=== PATIENT | male | born 1950 | race Caucasian/White ===

== ENCOUNTER → 2018-08-23 08:23 | Outpatient (CLI) | payer MEDICARE, MEDICAID, SELFPAY ==
--- NOTE | 2018-08-23 08:35 | XR_ITS ---
XR chest 2V HISTORY: ITS.REASON: smoker, encouter for long-term (Current) us of Medication ORDERING PHYSICIAN: Ellie Velasco PATIENT AGE: 67 years Technique: PA and lateral chest COMPARISON: 03/02/2016. & 08/20/2014 FINDINGS: No acute or new findings. The lungs appear hyperexpanded bilaterally with flattened hemidiaphragm the on lateral view. 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 Minimal linear scarring towards the left base is actually less evident on today's study again noted. The poppy and mediastinal structures appear stable. Unchanged. The heart is normal in size. There is been there is a fracture the distal right clavicle since prior studies. Inferior displacement of the distal right clavicular fragment with prominentll 2.5-3 cm bayonet override. Limited osseous bridging between the fragments distal clavicle with with Incomplete osseous union Otherwise the T-spine and ribs and chest wall unremarkable. IMPRESSION Nothing definitely acute Hyperexpansion.. COPD chronic lung changes . Right clavicular fracture, with prominent overriding of fragments. & Incomplete osseous union
== END ==
PROVIDERS: PCP Nurse Practitioner; Visit Provider Nurse Practitioner
DX: Z79.899 Other long term (current) drug therapy (principal)
CPT/HCPCS: 71046

== ENCOUNTER 2019-10-19 19:37 | Observation (INO) | payer MEDICARE, MEDICAID, SELFPAY ==
--- NOTE | 2019-10-19 19:35 | ECG_ITS ---
APPROVED REPORT Exam: Resting ECG HR:69 bpm ECG Measurements Heart Rate 69 AXES AL 208 P 63 QRSd 96 QRS 121 QT 406 T 82 QTc 435 <Conclusion> Normal sinus rhythm Right axis deviation Abnormal ECG Electronically signed by : Akil Barcenas, 10/20/2019 08:55:32
[2019-10-19 19:43] VITALS: BP 144/72; PULSE 73; RESP 20; TEMP 36.7; O2SAT 97; BMI 37.2
--- NOTE | 2019-10-19 19:48 | XR_ITS ---
PROCEDURE: XR CHEST PORTABLE CLINICAL HISTORY: cp Chest pain COMPARISON: CXR CHEST(2 VIEWS-NOT PORTABLE) from 03/02/2016 CXR2V XR chest 2V from 08/23/2018 XR CHEST 2V from 01/31/2019 FINDINGS: Borderline cardiomegaly without failure. Small hiatal hernia. The lungs are clear without infiltrates, suspicious nodules, or pleural effusions. There is an old right distal clavicle fracture IMPRESSION: No acute findings. Dictated by: David Weiss MD 10/19/2019 21:15 Electronically signed by Dvaid Weiss MD in [place] 10/19/2019 21:15
--- NOTE | 2019-10-19 19:51 | HMH.EDCP ---
ED Disposition Condition on Discharge: Good - Critical Care Critical Care Time: No <Kj Gee - Last Filed: 10/19/19 19:51> <Toño Camara - Last Filed: 10/19/19 20:40> Clinical Impression: Hyponatremia, Tobacco use, Diabetes 1.5, managed as type 2 Chest pain Qualifiers: Chest pain type: precordial pain Qualified Code(s): R07.2 - Precordial pain Disposition: Admitted as Observation Instructions: DI for Atypical Chest Pain Referrals: Provider,Referral, MD [Primary Care Provider] - Attestation: On 10/19/19, the high probability of a clinically significant, sudden or life threatening deterioration of the following system(s) required my full and direct attention, intervention and personal management. The time I documented below is in addition to time spent performing reported procedures but includes the following listed in this critical care notation. Medical Decision Making - Medical Records Medical records reviewed: Yes: I reviewed the patient's medical records. - Sergio Inquiry Pt receiving controlled substance: No - Lab Data Lab results reviewed: Yes: I reviewed the patient's lab results. - ECG Data Tracing #1 I reviewed this ECG and interpreted as documented below: Normal Sinus Rhythm: Yes <Kj Gee - Last Filed: 10/19/19 19:51> - Lab Data Result diagrams: 10/19/19 19:47 10/19/19 19:40 - Radiology Data #1 Image(s): Chest Image Reviewed: Yes I reviewed the patient's radiology image Preliminary Findings: Normal/NAD - ECG Data Tracing #1 Ischemic changes: non-specific ST-T wave changes - Physician Consults Physician Consulted: liz Reason -: Admission - Reevaluation(s) Time: 20:39 <Toño Camara - Last Filed: 10/19/19 20:40> Vital Signs: 10/19/19 19:43 10/19/19 20:14 Temperature 98.1 F Temperature Source Oral Pulse Rate [Right Brachial] 73 71 Respiratory Rate 20 18 Blood Pressure [Right Arm] 144/72 H 132/78 Blood Pressure Mean [Right Arm] 96 96 Blood Pressure Source [Right Arm] Automatic Cuff Automatic Cuff Blood Pressure Position [Right Arm] Sitting Sitting 02 Sat by Pulse Oximetry 97 98 Oxygen Delivery Method Room Air Room Air - Lab Data Lab Results 10/19/19 19:40: Sodium 120 L, Potassium 4.0, Chloride 83 L, Carbon Dioxide 26, Anion Gap 15.0, BUN 12, Creatinine 0.70, Estimated Creat Clear 114, Estimated GFR 113, Est GFR ( Amer) 137, Glucose 64 L, Calcium 9.2, Troponin I < 0.01 10/19/19 19:47: WBC 8.5, RBC 3.75 L, Hgb 12.0 L, Hct 36.2 L, MCV 96.5 H, MCH 32.0 H, MCHC 33.1, RDW 12.5, Plt Count 337, MPV 7.0 L, Neut % (Auto) 60.1, Lymph % (Auto) 32.3, [place] % (Auto) 6.2, Eos % (Auto) 1.1, Baso % (Auto) 0.4, Neut # (Auto) 5.1, Lymph # (Auto) 2.8, [place] # (Auto) 0.5, Eos # (Auto) 0.1, Baso # (Auto) 0.0 Orders (Tests/Meds): ED MEDICATIONS Discontinued Medications Generic Name Dose Route Start Last Admin Trade Name Freq PRN Reason Stop Dose Admin Aspirin 324 mg 10/19/19 19:52 10/19/19 19:57 Aspirin 81mg Chewable Tablet PO 10/19/19 19:53 Not Given ONCE ONE Nitroglycerin 1 gm 10/19/19 19:52 10/19/19 19:59 Nitroglycerin 1 Inch Oint Udp TD 10/19/19 19:53 1 gm ONCE ONE Administration ORDERS Category Date Time Status Chest XR -- portable [XR chest portable] Stat Exams 10/19/19 19:48 Taken Troponin I Q3H Lab 10/19/19 23:00 Ordered Troponin I Q3H Lab 10/20/19 02:00 Ordered - Reevaluation(s) Reevaluation #1: doing better (Toño Camara) Chest Pain HPI - General Mode of Arrival: EMS Source of Information: Patient, EMS Limitations: No Limitations Description of Symptoms (Recalled from ER Triage Doc. by RN): pt began experiencing severe chest pain approx 1.5 hours ago after having a conversation with his daughter that he says upset him. pt denies dyspnea, denies nausea. history of htn, cholesterol and diabetes issues. 1+ppd smoker. no pain radiation. no other issues. <GerardJ
[2019-10-19 20:01] LABS: Chloride 83 mmol/L (98-107); Sodium 120 mmol/L (136-145)
[2019-10-19 20:04] LABS: Blood Urea Nitrogen 12 mg/dl (9-20); Calcium 9.2 mg/dl (8.4-10.2); Carbon Dioxide 26 mmol/L (22.0-30.0); Creatinine Clearance Estimated 114 mL/min (50-200); Estimated Glomerular Filt Rate 113 ml/min (>60); GFR (African American) 137 ML/MIN (>60); Glucose 64 mg/dl (74-100)
[2019-10-19 20:10] LABS: Basophils % 0.4 % (0.1-2.0); Eosinophils # 0.1 K/mm3 (0.0-0.4); Eosinophils % 1.1 % (0.1-12.0); Hematocrit 36.2 % (42.0-52.0); Lymphocytes # 2.8 K/mm3 (0.7-4.5); Lymphocytes % 32.3 % (10-50); Mean Corpuscular HGB Conc 33.1 g/dL (31.8-35.4); Mean Corpuscular Volume 96.5 fl (80-94); Monocytes # 0.5 K/mm3 (0.1-1.0); Monocytes % 6.2 % (1.7-9.3); Neutrophils # 5.1 K/mm3 (1.8-7.8); Neutrophils % 60.1 % (37.0-80.0); Platelet Count 337 K/mm3 (142-424); Red Blood Count 3.75 M/mm3 (4.60-6.20); Red Cell Distribution Width 12.5 % (11.5-17.5); White Blood Count 8.5 K/mm3 (4.8-10.8)
[2019-10-19 20:14] VITALS: BP 132/78; PULSE 71; RESP 18; O2SAT 98
[2019-10-19 20:19] LABS: Troponin I < 0.01 ng/ml (0.00-0.034)
--- NOTE | 2019-10-19 20:43 | PC.NURSE ---
called information to registration: room 210,chest pain.obs, and carlos. spoke with benedicto.
--- NOTE | 2019-10-19 20:47 | PC.NURSE ---
attempted to call report on patient. advised by receiving nurse, prisca that she will call back when she is out of her current patient's room.
[2019-10-19 20:58] VITALS: BP 131/65; PULSE 73; RESP 18; TEMP 36.7; O2SAT 98
[2019-10-19 21:11] LABS: Microscopic, Urine URINE MICROSCOPIC (MICROSCOPIC)
[2019-10-19 21:15] LABS: Appearance,Urine CLEAR (Clear); Bilirubin,Urine Negative (Negative); Blood, Urine TRACE-L (Negative); Color,Urine YELLOW (Yellow); Glucose,Urine (UA) Negative (Negative); Ketones,Urine Negative (Negative); Leukocyte Esterase,Urine Negative (Negative); Nitrate,Urine Negative (Negative); Protein,Urine Negative (Negative); Specific Gravity, Urine <= 1.005 (1.005-1.030); Urobilinogen,Urine 0.2 EU/dl (0.2)
[2019-10-19 21:33] VITALS: BP 117/64; PULSE 64; RESP 20; TEMP 36.5; O2SAT 99; BMI 30.3
--- NOTE | 2019-10-19 21:33 | PC.NURSE ---
T ARRIVED TO THE FLOOR VIA W/C FROM ED @ [id number]
[2019-10-19 21:35] LABS: Bacteria,Urine Trace /lpf; Squamous Epithelial Cell,Urine Occasional #/hpf (0-5); WBC,Urine Occasional #/hpf (0-3)
[2019-10-19 21:45] VITALS: PULSE 60
[2019-10-19 23:14] LABS: Troponin I < 0.01 ng/ml (0.00-0.034)
--- NOTE | 2019-10-19 23:27 | PC.NURSE ---
med rec unable to be completed at this time. pt states he does not know the medications he currently takes. his meds come prepacked from his pharmacy and he states he just takes whatever is in the package. pt also states he does not know his current health hx, poor historian.
[2019-10-19 23:58] LABS: POC Glucose,Bedside 167 (70-110)
[2019-10-20] VITALS (7 sets, daily range): BP systolic 108–122; BP diastolic 53–66; PULSE 60–91; RESP 18–20; TEMP 36.4–36.8; O2SAT 96–98; BMI 29.5
--- NOTE | 2019-10-20 | CA_ITS ---
APPROVED REPORT Exam: Exercise Treadmill Technologist: Gisell Hughes, Ht: 6 ft 0 in Wt: 225 lbs BSA: 2.24 m2 HR: 80 bpm BP: 144/66 mmHg Rhythm: SINUS RHYTHM Medical History Medical History: HTN, Hyperlipidemia, Diabetic ??? Noninsulin Medications: Lisinopril,,,,, Propranolol,,,,, Asa,,,,, Metformin,,,,, Tylenol,,,,, Tramadol,,,,, PaROXETINE,,,,, PriMIDONE,,,,, Pregabalin,,,,, Tolterodine,,,,, TeraAZOSIN,,,,, LorEAZEPAM,,,,, Allergies: PCN Cardiac Risk Factors: HTN, Hyperlipidemia, Diabetes (non-insulin) Stress Test Details Test: LEXISCAN HR Resting HR: 75 bpm Max Heart Rate (APMHR): 154 bpm Max HR Achieved: 103 bpm Target HR (85% APMHR): 130 bpm % of APMHR: 66 Recovery HR: 93 bpm BP Resting BP: 144.0/66.0 mmHg Max BP: 152.0/63.0 mmHg Recovery BP: 120.0/72.0 mmHg ECG Resting ECG: SINUS RHYTHM Clinical Exercise duration: 04:00 min Highest Stage Achieved: Exercise capacity: 1.0 METs Stress ECG Conclusion LEXISCAN PORTION COMPLETED. PATIENT C/O SHORTNESS OF BREATH DURING PEAK INFUSION. NO CHEST PAIN. POSITIVE FOR SOA DURING PEAK INFUSION. NO ECTOPY. LESS THAN 1.[address] DEPRESSION. IMAGES TO FOLLOW Test Summary REST . . . . . . . Sitting REST . . . . . . . Sitting REST 02:06 . . 75 . 144/ 66 . . Stage 1 01:00 . . 89 . . . . Stage 2 01:00 . . 101 . 152/ 63 . . Stage 3 01:00 . . 98 . 116/ 71 . . Stage 4 01:00 . . 90 . . . Stop exercise at 04:00 RECOVERY 01:00 . . 91 . 128/ 71 . . RECOVERY 02:00 . . 91 . 128/ 71 . . RECOVERY 03:00 . . 90 . 127/ 71 . . RECOVERY 04:00 . . 90 . 127/ 71 . . RECOVERY 04:18 . . 90 . 139/ 73 . . Electronically signed by : Zhang Noyola, 10/20/2019 16:51:15
[2019-10-20 02:36] LABS: Troponin I < 0.01 ng/ml (0.00-0.034)
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
--- NOTE | 2019-10-20 06:08 | PC.NURSE ---
KAE HARRIS NOTIFIED OF CONSULT.
[2019-10-20 06:22] LABS: POC Glucose,Bedside 101 (70-110)
[2019-10-20 06:54] LABS: Basophils % 0.3 % (0.1-2.0); Eosinophils # 0.1 K/mm3 (0.0-0.4); Eosinophils % 1.9 % (0.1-12.0); Hematocrit 36.9 % (42.0-52.0); Lymphocytes # 1.4 K/mm3 (0.7-4.5); Lymphocytes % 23.2 % (10-50); Mean Corpuscular HGB Conc 32.4 g/dL (31.8-35.4); Mean Corpuscular Hemoglobin 32.1 pg (27.0-31.2); Mean Platelet Volume 7.5 fl (7.4-10.4); Monocytes # 0.5 K/mm3 (0.1-1.0); Neutrophils # 4.1 K/mm3 (1.8-7.8); Neutrophils % 66.6 % (37.0-80.0); Platelet Count 359 K/mm3 (142-424); Red Blood Count 3.73 M/mm3 (4.60-6.20); Red Cell Distribution Width 12.5 % (11.5-17.5); White Blood Count 6.1 K/mm3 (4.8-10.8)
[2019-10-20 07:16] LABS: Chloride 96 mmol/L (98-107); Potassium 4.2 mmoL/L (3.5-5.1); Sodium 130 mmol/L (136-145)
[2019-10-20 07:19] LABS: Anion Gap 12.2 mEq/L (5-15); Blood Urea Nitrogen 12 mg/dl (9-20); Calcium 9.2 mg/dl (8.4-10.2); Carbon Dioxide 26 mmol/L (22.0-30.0); Cholesterol 92 mg/dl (140-200); Creatinine Clearance Estimated 91 mL/min (50-200); Estimated Glomerular Filt Rate 113 ml/min (>60); GFR (African American) 137 ML/MIN (>60); Glucose 117 mg/dl (74-100); Magnesium 1.8 mg/dl (1.6-2.3); Triglycerides 79 mg/dl (30-150); VLDL Cholesterol 16 mg/dL (0-40)
[2019-10-20 07:20] LABS: Chol/HDL Ratio 2.1 (1-3.5); HDL Cholesterol 43 mg/dl (40-60)
--- NOTE | 2019-10-20 07:24 | NM_ITS ---
APPROVED REPORT Exam: Nuclear Stress Test Indication: HTN, D.M., HYPERLIPIDEMIA, TOB USE, FM HX, C.P., SOB, PALPITATIONS, FATIGUE Patient Location: Inpatient Stress Tech: Althea Backnkson OR Tech:Debi Clement, DENIT RT (R)(N)(M) Ht: 60 ft 0 in Wt: 225 lbs HR: 80 bpm BP: 144/66 mmHg BSA: 11.89 m2 History: HTN, D.M., HYPERLIPIDEMIA, TOB USE, FM HX, C.P., SOB, PALPITATIONS, FATIGUE Procedure: Patient received a 0.4 mg of intravenous Lexiscan, resting heart rate 80 bpm, resting blood pressure 144/66 mmHg, with Lexiscan maximum heart rate achived was 100 bpm which is Less than 85 % of the maximum predicted heart rate and blood pressure was 120/69 mmHg. With Lexiscan, patient denied any complaint of chest pain. Electrocardiogram Resting electrocardiogram showed sinus rhythm, with Lexiscan there is less than 1.[address] segment depression noted from the baseline EKG. The EKG portion of the Lexiscan Myoview is nondiagnostic. Cardiac Stress and Resting SPECT Images: Cardiac Stress and Resting SPECT images were obtained using technetium 99m Myoview 31.8 mCi stress and 10.14 mCi at rest. Gated SPECT for the analysis of segmental wall motion and calculation of the ejection fraction also done. Cardiac stress and resting SPECT images show uniform myocardial activity without segmental perfusion abnormality, computer derived ejection fraction is over 65% with no regional wall motion abnormality, right ventricle is normal size and contractility. Conclusion: 1. The EKG portion of the Lexiscan Myoview is nondiagnostic. 2. No scintigraphic evidence of reversible ischemia seen, computer derived ejection fraction is over 65% with no regional wall motion abnormality, right ventricle is normal size and contractility. 3. Normal Lexiscan Myoview study. Electronically signed by : Zhang Noyola, 10/20/2019 16:53:23
--- NOTE | 2019-10-20 07:25 | HMH.HP ---
*Admission Date: 10/19/19 *Chief complaint: Chest pain *History of present illness: 68-year-old male with diabetes, hypertension and significant cigarette use presented to the emergency department after an argument with a family member led to development of retrosternal chest pain with associated mild diaphoresis and shortness of breath. Patient reports chest discomfort was nonradiating. He has not had this chest discomfort before. He came to the emergency department for evaluation. Patient had unremarkable EKG and normal troponin in the emergency department. He was admitted for rule out of [place]. This morning he reports no chest pain at the time of interview. Nursing notes would indicate patient's chest pain gradually decreased throughout the night. Patient has diabetes that is controlled, hypertension and is a longtime smoker. He reports more recently during the coronavirus pandemic while he has been at home he is sometimes smoking 2 packs of cigarettes per day. [facility] History I have reviewed the patient's past medical history: Yes Medical History: Reports:: Diabetes Mellitus Type 2, Hyperlipidemia, Hypertension Denies:: Cancer, Diabetes Mellitus Type 1 *Have you ever received a pneumonia vaccine?: Yes *Have you received a flu vaccine this season?: Yes Other Medical History: Reports: Arthritis Other Surgeries: Yes: No Previous Surgery Amputation: No Fractures: No - *Social History Educational Level: Attended Grade School Smoking Status: Current every day smoker Tobacco Type: cigarettes # Packs/Day (cigarettes): 2 Alcohol Intake: never *Occupational Status:: retired Housing: apartment *Travel in the last 8 weeks: None Family Hx:: Diabetes Review of Systems - Constitutional Denies anorexia, Denies body ache(s), Denies chills - *Cardiovascular Reports chest pain - *Respiratory Reports shortness of breath, Denies change in phlegm color, Denies chest congestion, Denies cough, Denies shortness of breath with activity - *Gastrointestinal Denies abdominal pain - *Musculoskeletal Reports abnormal walking - *Neurologic Reports abnormal walking, Reports confusion, Reports unsteadiness, Denies frequent falls Meds Home Medications Medication Instructions Recorded Confirmed Type Aspirin [Aspir-Low] 81 mg PO DAILY 01/31/19 10/20/19 History Docusate Sodium [Docusate Sodium 100 mg PO DAILY 01/31/19 10/20/19 History 100mg Cap] Dutasteride 0.5 mg PO DAILY 01/31/19 10/20/19 History Etanercept [Enbrel Sureclick] 50 mg IM . 01/31/19 10/20/19 History Fenofibrate Nanocrystallized 145 mg PO DAILY 01/31/19 10/20/19 History [Fenofibrate] LORazepam [Ativan 1mg tablet] 0.5 mg PO NEEDED PRN 01/31/19 10/20/19 History Memantine HCl [Memantine HCl ER] 28 mg PO DAILY 01/31/19 10/20/19 History Metformin HCl [Metformin 1000mg 1,000 mg PO DAILY 01/31/19 10/20/19 History Tablets] Multivit-Min/FA/Lycopen/Lutein 1 tab PO DAILY 01/31/19 10/20/19 History [Abc Plus Tablet] PARoxetine HCL [Paroxetine HCl] 40 mg PO DAILY 01/31/19 10/20/19 History Pravastatin Sodium [Pravachol 20mg 20 mg PO DAILY 01/31/19 10/20/19 History Tablet] Pregabalin [Pregabalin 50mg 50 mg PO TID 01/31/19 10/20/19 History Capsule] Primidone 50 mg PO TID 01/31/19 10/20/19 History Propranolol HCl 10 mg PO TID 01/31/19 10/20/19 History Terazosin HCl 2 mg PO DAILY 01/31/19 10/20/19 History Tolterodine Tartrate [Tolterodine 4 mg PO DAILY 01/31/19 10/20/19 History Tartrate ER] Tramadol HCl [Tramadol 50mg 50 mg PO BID 01/31/19 10/20/19 History Tab] lisinopriL [Lisinopril 10mg Tab] 10 mg PO DAILY 01/31/19 10/20/19 History polyethylene glycoL 3350 [Miralax See Rx Instructions .ROUTE .COMPLEX 10/19/19 10/20/19 History 17gm Packet] Acetaminophen [Acetaminophen 325mg 650 mg PO BID 10/20/19 10/20/19 History tab] Allergies Allergy/AdvReac Type Severity Reaction Status Date / Time From TETANUS AND DIPHTHERIA Allergy Unknown
--- NOTE | 2019-10-20 07:27 | HMH.PHAVTE ---
[facility] Pharmacy VTE Monitoring - Patient Demographics Admission date: 10/19/19 Report Date: 10/20/19 Time: 07:27 Allergies/Adverse Reactions: Patient Allergies From TETANUS AND DIPHTHERIA TOXOIDS A... Allergy (Unknown, Uncoded 06/04/17 15:18) PCN (PENICILLIN) Allergy (Unknown, Uncoded 06/04/17 15:18) Height: 1.73 m Weight: 88.479 kg Patient Problems: Current Active Problems Hyponatremia (Acute) Chest pain (Acute) Tobacco use (Acute) Diabetes 1.5, managed as type 2 (Acute) - VTE Risk Labs: VTE Related Lab Results Hgb 12.0 g/dL (14.1-18.0) L 10/20/19 06:40 Hct 36.9 % (42.0-52.0) L 10/20/19 06:40 Plt Count 359 K/mm3 (142-424) 10/20/19 06:40 BUN 12 mg/dl (9-20) 10/20/19 06:40 Creatinine 0.70 mg/dl (0.66-1.25) 10/20/19 06:40 Estimated Creat Clear 91 mL/min (50-200) 10/20/19 06:40 Was VTE Risk Assessment Performed: Yes VTE Score: 3 VTE Risk Level: Low Risk - Prophylaxis VTE Prophylaxis Ordered?: Yes Types of VTE Prophylaxis: TEDS Knee High Location of Applied Device: Bilateral Lower Extremeties - VTE Diagnosis Confirmed Treatment or plan recommended: Continue Current Treatment
[2019-10-20 07:30] LABS: Direct LDL Cholesterol 39.89 mg/dL (100-129)
--- NOTE | 2019-10-20 08:00 | CA_ITS ---
APPROVED REPORT EXAM: Comprehensive 2D, Doppler, and color-flow Echocardiogram Plant Cytologist: Fiona Oconnor CRT Ht: 5 ft 8 in Wt: 245lbs BSA: 2.23 BP: 132/78 mmHg Indications: CP, smoker, HTN, HLD, DM 2D Dimensions LVOT 1.70 cm (M/F) 1.5-2.5 M-Mode Dimensions RVDd 2.54 cm (0.9-2.6) LVDd 4.79 cm (3.5-5.7) LVDs 3.50 cm (3.5-5.7) IVSd 1.32 cm (0.6-1.1) PWd 1.07 cm (0.6-1.1) EF (Teich) 52.40% FS 26.90% EDV (Teich) 107.00 mL ESV (Teich) 50.90 mL LV Diastology E/A Ratio 0.75 Mitral Valve MV A Velocity 96.00 (40-130 cm/s) Left Ventricle Left atrium is normal size, left ventricle is normal size, mild concentric left ventricular hypertrophy, visually estimated ejection fraction 55% with no regional wall motion abnormality. Doppler evidence of impaired LV relaxation seen, there is no tissue Doppler performed. Right Ventricle Right atrium and right ventricle mildly enlarged with normal contractility. Aortic Valve Aortic valve is minimally thickened and fibrosed, there is no aortic stenosis or aortic insufficiency. Mitral Valve Mitral valve is grossly normal, there is mild mitral regurgitation. Tricuspid Valve Tricuspid valve is grossly normal, there is mild tricuspid regurgitation, tricuspid regurgitation jet velocity is inadequate for calculation of the right ventricular systolic pressure. Pulmonic Valve Pulmonic valve is poorly visualized. Great Vessels Aortic root is normal size. Pericardium No significant pericardial effusion noted. Conclusion 1. Normal left ventricular size, mild concentric left ventricular hypertrophy, visually estimated ejection fraction 55% with no regional wall motion abnormality, Doppler evidence of impaired LV relaxation seen. 2. Mildly enlarged right ventricle with normal contractility. 3. Mild mitral and tricuspid regurgitation. 4. No significant pericardial effusion noted. Electronically signed by : Zhang Noyola, 10/20/2019 16:57:15
--- NOTE | 2019-10-20 11:19 | HMH.PHAINT ---
MEDICATION RECONCILIATION COMPLETED ON PATIENT USING EXTERNAL FILL HISTORY FROM PHARMACY AND LIST FROM PHYSICIAN'S OFFICE. -[place]
--- NOTE | 2019-10-20 14:19 | PC.NURSE ---
PT IS RESTING IN BED. TOLERATED LEXISCAN WELL. PT HAS NOT COMPLAINED OF ANY CHEST PAIN OR SOA. LUNG SOUNDS CLEAR. BOWEL SOUNDS NORMAL. PT HAS AMBULATED TO THE BATHROOM SEVERAL TIMES THIS SHIFT. VSS. WILL CONTINUE TO MONITOR.
--- NOTE | 2019-10-20 17:13 | HMH.DCSUM ---
General - General Admission date:: 10/19/19 Discharge date: 10/20/19 HPI HPI: 68-year-old male with diabetes, hypertension and significant cigarette use presented to the emergency department after an argument with a family member led to development of retrosternal chest pain with associated mild diaphoresis and shortness of breath. Patient reports chest discomfort was nonradiating. He has not had this chest discomfort before. He came to the emergency department for evaluation. Patient had unremarkable EKG and normal troponin in the emergency department. He was admitted for rule out of [place]. This morning he reports no chest pain at the time of interview. Nursing notes would indicate patient's chest pain gradually decreased throughout the night. Patient has diabetes that is controlled, hypertension and is a longtime smoker. He reports more recently during the coronavirus pandemic while he has been at home he is sometimes smoking 2 packs of cigarettes per day. Hospital Course Hospital Course: Patient was admitted and ruled out for AL with serial troponins. Patient underwent Lexiscan stress test on the morning of October 19 as well as an echocardiogram. Echocardiogram revealed normal ejection fraction of 55% and patient's Lexiscan stress test did not reveal any ischemia. Once patient's tests were completed and resulted patient was discharged home. He will follow-up in my office next Saturday. Objective Vital signs: Temp Pulse Resp BP Pulse Ox 98.2 F 91 H 18 120/66 97 10/20/19 15:48 10/20/19 15:48 10/20/19 15:48 10/20/19 15:48 10/20/19 15:48 Results Labs on day of discharge: Labs from last 24 hours 10/20/19 10/20/19 10/20/19 06:40 06:40 05:06 WBC 6.1 D RBC 3.73 L Hgb 12.0 L Hct 36.9 L MCV 99.0 H MCH 32.1 H MCHC 32.4 RDW 12.5 Plt Count 359 MPV 7.5 Neut % (Auto) 66.6 Lymph % (Auto) 23.2 Gordon % (Auto) 8.0 Eos % (Auto) 1.9 Baso % (Auto) 0.3 Neut # (Auto) 4.1 Lymph # (Auto) 1.4 Gordon # (Auto) 0.5 Eos # (Auto) 0.1 Baso # (Auto) 0.0 Sodium 130 L Potassium 4.2 Chloride 96 L Carbon Dioxide 26 Anion Gap 12.2 BUN 12 Creatinine 0.70 Estimated Creat Clear 91 Estimated GFR 113 Est GFR ( Amer) 137 Glucose 117 H D POC Glucose 101 Calcium 9.2 Magnesium 1.8 Troponin I Triglycerides 79 Cholesterol 92 L LDL Cholesterol Direct 39.89 L VLDL Cholesterol 16 HDL Cholesterol 43 Cholesterol/HDL Ratio 2.1 Urine Color Urine Appearance Urine pH Ur Specific [place] Urine Protein Urine Glucose (UA) Urine Ketones Urine Blood Urine Nitrate Urine Bilirubin Urine Urobilinogen Ur Leukocyte Esterase Urine WBC Ur Squamous Epith Cells Urine Bacteria 10/20/19 10/19/19 10/19/19 01:45 23:49 22:46 WBC RBC Hgb Hct MCV MCH MCHC RDW Plt Count MPV Neut % (Auto) Lymph % (Auto) Gordon % (Auto) Eos % (Auto) Baso % (Auto) Neut # (Auto) Lymph # (Auto) Gordon # (Auto) Eos # (Auto) Baso # (Auto) Sodium Potassium Chloride Carbon Dioxide Anion Gap BUN Creatinine Estimated Creat Clear Estimated GFR Est GFR ( Amer) Glucose POC Glucose 167 H Calcium Magnesium Troponin I < 0.01 < 0.01 Triglycerides Cholesterol LDL Cholesterol Direct VLDL Cholesterol HDL Cholesterol Cholesterol/HDL Ratio Urine Color Urine Appearance Urine pH Ur Specific [place] Urine Protein Urine Glucose (UA) Urine Ketones Urine Blood Urine Nitrate Urine Bilirubin Urine Urobilinogen Ur Leukocyte Esterase Urine WBC Ur Squamous Epith Cells Urine Bacteria 10/19/19 10/19/19 10/19/19 19:47 19:47 19:40 WBC 8.5 RBC 3.75 L Hgb 12.0 L Hct 36.2 L MCV 96.5 H MC
[2019-10-20 23:41] LABS: POC Glucose,Bedside 148 (70-110)
== END 2019-10-20 18:08 | disposition home or self-care (01) ==
LOC: ER 20:40 → 2ND 20:55
PROVIDERS: Emergency Medicine; Admitting Provider Family Medicine; Emergency Provider Family Medicine; PCP Family Medicine; Visit Provider Family Medicine
DX: R07.9 Chest pain, unspecified (principal); I10 Essential (primary) hypertension; E11.9 Type 2 diabetes mellitus without complications; Z72.0 Tobacco use; E78.5 Hyperlipidemia, unspecified; E87.1 Hypo-osmolality and hyponatremia; Z79.899 Other long term (current) drug therapy; Z79.84 Long term (current) use of oral hypoglycemic drugs; Z88.0 Allergy status to penicillin; Z88.7 Allergy status to serum and vaccine
CPT/HCPCS: 36415; 71045; 78452; 80048; 80061; 81001; 82962; 83735; 84484; 85025; 93005; 93017; 93306; 99284; A9502; G0378; J2785

== ENCOUNTER 2020-04-27 18:05 | Observation (INO) | payer MEDICARE, MEDICAID, SELFPAY ==
[2020-04-27] VITALS (7 sets, daily range): BP systolic 100–145; BP diastolic 70–86; PULSE 61–72; RESP 17–18; TEMP 36.4–36.9; O2SAT 92–97; BMI 32.1; BMI 25.9
--- NOTE | 2020-04-27 18:03 | ECG_ITS ---
APPROVED REPORT Exam: Resting ECG HR:70 bpm ECG Measurements Heart Rate 70 AXES WI 198 P 68 QRSd 94 QRS 117 QT 398 T 89 QTc 429 Conclusion Normal sinus rhythm Right axis deviation Incomplete RBBB Pulmonary disease pattern Abnormal ECG Electronically signed by : Akil Barcenas, 04/29/2020 17:02:33
--- NOTE | 2020-04-27 18:10 | XR_ITS ---
PROCEDURE: XR CHEST 2V CLINICAL HISTORY: chest pain, SOA COMPARISON: CR CXR2V XR chest 2V from 08/23/2018 CR XR CHEST 2V from 01/31/2019 CR XR CHEST PORTABLE from 10/19/2019 FINDINGS: Borderline cardiomegaly without failure. No lobar consolidation or collapse. There is an old right ununited clavicular fracture. No acute bony abnormalities. IMPRESSION: No acute findings. Dictated by: David Weiss MD 04/27/2020 19:23 David Weiss MD in [place] 04/27/2020 19:23
--- NOTE | 2020-04-27 18:11 | PC.NURSE ---
notified rad of xray order
[2020-04-27 18:22] LABS: Chloride 87 mmol/L (98-107); Potassium 4.1 mmoL/L (3.5-5.1); Sodium 125 mmol/L (136-145)
[2020-04-27 18:25] LABS: Anion Gap 13.1 mEq/L (5-15); Blood Urea Nitrogen 13 mg/dl (9-20); Carbon Dioxide 29 mmol/L (22.0-30.0); Creatinine Clearance Estimated 106 mL/min (50-200); Estimated Glomerular Filt Rate 112 ml/min (>60); GFR (African American) 136 ML/MIN (>60)
[2020-04-27 18:26] LABS: Calcium 9.9 mg/dl (8.4-10.2); Glucose 59 mg/dl (74-100)
--- NOTE | 2020-04-27 18:26 | HMH.EDGENADL ---
ED Disposition Clinical Impression: Hiatal hernia, Hypoglycemia Chest pain Qualifiers: Chest pain type: precordial pain Qualified Code(s): R07.2 - Precordial pain Disposition: Admitted as Observation Condition on Discharge: Fair Referrals: Provider,Referral, [Referring] - - Critical Care Critical Care Time: No Attestation: On 04/27/20, the high probability of a clinically significant, sudden or life threatening deterioration of the following system(s) required my full and direct attention, intervention and personal management. The time I documented below is in addition to time spent performing reported procedures but includes the following listed in this critical care notation. Medical Decision Making - Medical Records Medical records reviewed: Yes: I reviewed the patient's medical records. MR Comment: Admitted to this hospital in October for chest pain. Had a negative Lexiscan stress test. - Sergio Inquiry Pt receiving controlled substance: No Vital Signs: 04/27/20 18:05 04/27/20 19:55 04/27/20 20:26 Temperature 98.5 F Temperature Source Oral Pulse Rate [Right Radial] 72 61 61 Respiratory Rate 18 18 18 Blood Pressure [Right Arm] 100/73 L 115/70 123/82 Blood Pressure Mean [Right Arm] 82 85 95 Blood Pressure Source [Right Arm] Automatic Cuff Blood Pressure Position [Right Arm] Sitting 02 Sat by Pulse Oximetry 92 L 92 L 94 L Oxygen Delivery Method Room Air - Lab Data Lab Results 04/27/20 18:06: WBC 7.4, RBC 4.35 L, Hgb 13.5 L, Hct 43.2, MCV 99.5 H, MCH 31.0, MCHC 31.1 L, RDW 12.9, Plt Count 403, MPV 6.5 L, Neut % (Auto) 56.9, Lymph % (Auto) 34.0, [place] % (Auto) 6.5, Eos % (Auto) 1.5, Baso % (Auto) 1.0, Neut # (Auto) 4.2, Lymph # (Auto) 2.5, [place] # (Auto) 0.5, Eos # (Auto) 0.1, Baso # (Auto) 0.1 04/27/20 18:06: Sodium 125 L, Potassium 4.1, Chloride 87 L, Carbon Dioxide 29, Anion Gap 13.1, BUN 13, Creatinine 0.70, Estimated Creat Clear 106, Estimated GFR 112, Est GFR ( Amer) 136, Glucose 59 L, Calcium 9.9, Troponin I < 0.01 04/27/20 18:06: SARS-CoV-2 IgG Ab (Rapid) Negative, SARS-CoV-2 IgM Ab (Rapid) Negative Result diagrams: 04/27/20 18:06 04/27/20 18:06 Orders (Tests/Meds): ED MEDICATIONS Generic Name Dose Route Start Last Admin Trade Name Freq PRN Reason Stop Dose Admin Pantoprazole Sodium 40 mg 04/27/20 21:00 Pantoprazole 40mg Vial IV 05/27/20 20:59 BID TEMI Discontinued Medications Generic Name Dose Route Start Last Admin Trade Name Freq PRN Reason Stop Dose Admin Aspirin 243 mg 04/27/20 20:45 Aspirin 81mg Chewable Tablet PO 04/27/20 20:46 ONCE ONE Dextrose 50 ml 04/27/20 18:48 04/27/20 18:48 Dextrose 50% 50ml Syringe (Crash Cart) IVP 04/27/20 18:49 50 ml ONCE ONE Administration Iopamidol 70 ml 04/27/20 19:36 04/27/20 19:37 Iopamidol-370 (76%);100ml Bottle IV 04/27/20 19:37 70 ml ONCE ONE Administration Sodium Chloride 50 ml 04/27/20 19:36 04/27/20 19:37 0.9 % Sodium Chloride 50 Ml Vial IV 04/27/20 19:37 50 ml ONCE ONE Administration Sodium Chloride 10 ml 04/27/20 19:36 04/27/20 19:37 Sodium Chloride 0.9% 10ml Syr (Rad Only) IV 04/27/20 19:37 10 ml ONCE ONE Administration ORDERS Category Date Time Status CTA Chest [CT angio chest] Stat Cat Scan 04/27/20 18:49 Taken Troponin I Q3H Lab 04/27/20 21:15 Ordered Troponin I Q3H Lab 04/28/20 00:15 Ordered - Radiology Data #1 Image(s): Chest Image Reviewed: Yes I reviewed the patient's radiology image COPD, no acute process - CT Data CT Scan: Chest (cta) Time Received: 20:28 ([facility] fax) Findings Narrative: No filling defects in the pulmonary vasculature to suggest pulmonary embolus. No right heart strain. The aorta is not aneurysmal, there is no dissection. Mild emphysematous changes, peribronchial interstitial thickening. Lobulated cystic lesion in the anterior mediastinum likely represents a pericardial cyst. Large hia
[2020-04-27 18:38] LABS: Basophils # 0.1 K/mm3 (0-0.2); Eosinophils # 0.1 K/mm3 (0.0-0.4); Eosinophils % 1.5 % (0.1-12.0); Hematocrit 43.2 % (42.0-52.0); Hemoglobin 13.5 g/dL (14.1-18.0); Lymphocytes # 2.5 K/mm3 (0.7-4.5); Mean Corpuscular HGB Conc 31.1 g/dL (31.8-35.4); Mean Corpuscular Volume 99.5 fl (80-94); Mean Platelet Volume 6.5 fl (7.4-10.4); Monocytes # 0.5 K/mm3 (0.1-1.0); Monocytes % 6.5 % (1.7-9.3); Neutrophils # 4.2 K/mm3 (1.8-7.8); Neutrophils % 56.9 % (37.0-80.0); Platelet Count 403 K/mm3 (142-424); Red Blood Count 4.35 M/mm3 (4.60-6.20); Red Cell Distribution Width 12.9 % (11.5-17.5); White Blood Count 7.4 K/mm3 (4.8-10.8)
--- NOTE | 2020-04-27 18:49 | CT_ITS ---
PROCEDURE: CT ANGIO CHEST CLINCIAL INDICATION: chest pain, shortness of breath Chest pain and shortness of breath COMPARISON: CR XR CHEST 2V from 01/31/[address] ABDOMEN PELVIS W CON from 01/31/2019 TECHNIQUE: IV Contrast: 70ML Isovue 370 Axial images obtained with sagittal and coronal reformats. All CT scans at the facility use one or more dose reduction, viz: automated exposure control, ma/kV adjustment per patient size (including targeted exams where dose is matched to indication, i.e. head), or iterative reconstruction technique. FINDINGS: HEART AND MEDIASTINAL STRUCTURES: Masses no evidence of aortic aneurysm or dissection. No evidence of pulmonary embolus. Pericardium is thickened measuring up to 10 mm. There is moderate-sized hiatal hernia. There is a oval soft tissue density in the anterior mediastinum measuring 2.5 x 1.4 cm and measures near water density. Coronary artery calcifications are present. There are scattered small mediastinal and hilar lymph nodes. LUNGS AND PLEURAL SPACES: Motion artifact somewhat obscures fine detail specially in the right apex. Mild diffuse bronchial thickening noted. There is faint tree-in-bud opacification in the right middle and right lower lobe with mild atelectatic changes in the right lower lobe. No effusions. Atelectatic changes are present in the lung base posteriorly on the right BONY STRUCTURES: Degenerative changes thoracic spine UPPER ABDOMEN: Mild prominence of the adrenal glands maintaining an adrenal form shape. Moderate-sized hiatal hernia ADDITIONAL FINDINGS: Gynecomastia on the right. Sebaceous cyst at 2 cm is present along the the superior aspect of the back on the right with another possible sebaceous cyst centrally in the midthoracic region IMPRESSION: 1. No evidence of pulmonary embolus or aortic aneurysm or dissection. 2. Faint tree-in-bud opacification in the right upper right middle and right lower lobe consistent with mild bronchopneumonia. 3. Nodular density in the anterior mediastinum which may be related to a low-dense enlarged lymph node, thymoma, or mediastinal cyst. Suggest follow-up to confirm stability. 4. Other nonacute findings as described above Dictated by: David Weiss MD 04/28/2020 05:56 David Weiss MD in [place] 04/28/2020 05:56
[2020-04-27 18:54] LABS: Troponin I < 0.01 ng/ml (0.00-0.034)
--- NOTE | 2020-04-27 19:14 | PC.NURSE ---
pt to ct
[2020-04-27 20:38] LABS: Coronavirus 19 IgG Antibody Negative (Negative); Coronavirus 19 IgM Antibody Negative (Negative)
[2020-04-27 20:54] LABS: POC Glucose,Bedside 114 (70-110)
--- NOTE | 2020-04-27 21:46 | PC.NURSE ---
asked for nurse to come get report on pt
[2020-04-27 22:04] LABS: Troponin I < 0.01 ng/ml (0.00-0.034)
--- NOTE | 2020-04-27 22:37 | PC.NURSE ---
PT ARRIVED TO THE FLOOR VIA W/C FROM W/STAFF AT 0622
[2020-04-28] VITALS (15 sets, daily range): BP systolic 92–132; BP diastolic 57–78; PULSE 65–90; RESP 14–23; TEMP 36.3–36.9; O2SAT 90–98; BMI 25.7
--- NOTE | 2020-04-28 | IR_ITS ---
APPROVED REPORT Patient Location: Inpatient Magistrate Assistant: PALOMO Kaufman RT (R) PROCEDURES Left heart catheterization Left ventriculogram Selective coronary angiogram INDICATION Unstable angina Informed consent was obtained prior to the procedure. COMPLICATIONS None Estimated Blood Loss: less than 10ml TECHNIQUE One percent lidocaine used to anesthetize the right anterior aspect of the wrist. The right radial artery was accessed via the Seldinger technique. A 6 Czech sheath was placed in the right radial artery. 2.5 mg of verapamil, 800 mcg of nitroglycerin, 1mg Lidocaine and 5000 U Heparin were given through the arterial sheath. The trap catheter was also used to perform left heart catheterization, left ventriculogram and selective coronary angiogram. At the end of the procedure the sheath was removed good hemostasis was achieved using Traclet band, patient was transferred to the postop holding area in stable condition. ANGIOGRAPHIC RESULTS The left main artery Normal The left anterior descending artery Is normal. The large 2.5 mm first diagonal artery has an unusual anatomic kink in its proximal segment. At times the stenosis is 80% while other times this cannot is 20% stenosed The circumflex artery Nondominant and normal The right coronary artery Large dominant normal The AARON ventriculogram reveals Slightly hyperdynamic at 70 to 75% The left ventricular end-diastolic pressure 10 mmHg IMPRESSION No evidence of atherosclerotic plaque Unusual angiographic anatomical kink in the large first diagonal artery which is most likely functioning similarly to a myocardial bridge however involving the diagonal artery rather than the LAD Slightly hyperdynamic ventricle consistent with diastolic dysfunction Normal left ventricular end-diastolic pressure PLAN 1. I seriously doubt the diagonal artery is producing angina especially resting angina. Nevertheless I would still treat this similar to a myocardial bridge and treat with beta-blockers and negative chronotropic drugs. 2. Look for noncardiac etiologies of chest pain Electronically signed by : Edilberto Roberson, 04/28/2020 11:47:51
[2020-04-28 01:01] LABS: Troponin I < 0.01 ng/ml (0.00-0.034)
[2020-04-28 01:56] LABS: POC Glucose,Bedside 109 (70-110)
--- NOTE | 2020-04-28 04:29 | PC.NURSE ---
Pt is alert and oriented x4. No c/o pain since arriving to unit from ER. Denies pain when asked. Pt has rested well with eyes closed since admission. No new complaints. Tolerated RA well with no c/o SOA. Bilateral lungs noted with wheezing upon auscultation. No acute changes noted since previous assessment upon admission. No edema noted. IV noted SL. Refused TEDS. Adequate urine output noted, clear and bright yellow in color. No BM noted thus far this shift. Pt states last BM was 11/11 in am. VSS. Remains safe. Call light within reach. Will continue to monitor.
--- NOTE | 2020-04-28 06:10 | PC.NURSE ---
Adeline HARRIS NOTIFIED OF CONSULT
--- NOTE | 2020-04-28 07:25 | P.CONPHA_ITS ---
[facility] Pharmacy VTE Monitoring - Patient Demographics Admission date: 04/27/20 Report Date: 04/28/20 Time: 07:25 Allergies/Adverse Reactions: Patient Allergies Penicillins Allergy (Verified 10/20/19 12:16) Unknown allergy reaction tetanus and diphtheria toxoids Allergy (Verified 10/20/19 12:16) Unknown allergy reaction Height: 1.8 m Weight: 83.263 kg Patient Problems: Current Active Problems Chest pain (Acute) Hiatal hernia (Acute) Hypoglycemia (Acute) - VTE Risk Labs: VTE Related Lab Results Hgb 13.5 g/dL (14.1-18.0) L 04/27/20 18:06 Hct 43.2 % (42.0-52.0) 04/27/20 18:06 Plt Count 403 K/mm3 (142-424) 04/27/20 18:06 BUN 13 mg/dl (9-20) 04/27/20 18:06 Creatinine 0.70 mg/dl (0.66-1.25) 04/27/20 18:06 Estimated Creat Clear 106 mL/min (50-200) 04/27/20 18:06 Was VTE Risk Assessment Performed: Yes VTE Score: 3 VTE Risk Level: Low Risk - Prophylaxis VTE Prophylaxis Ordered?: Yes Types of VTE Prophylaxis: TEDS Knee High Location of Applied Device: Bilateral Lower Extremeties
--- NOTE | 2020-04-28 07:30 | HMH.CNCARD ---
History of Present Illness Consult date: 04/28/20 Requesting physician: Edi Sorensen Consult reason: chest pain, shortness of breath Chief complaint: Chest pain, shortness of breath Additional Medical History:: 1. Diabetes mellitus, type II, treated for greater than 20 years 2. Hypertension A. Echo, 10/2019, 1. Normal left ventricular size, mild concentric left ventricular hypertrophy, visually estimated ejection fraction 55% with no regional wall motion abnormality, Doppler evidence of impaired LV relaxation seen. 2. Mildly enlarged right ventricle with normal contractility. 3. Mild mitral and tricuspid regurgitation. 4. No significant pericardial effusion noted 3. Hyperlipidemia, on statin therapy, LDL 39, HDL 43, 10/2019 4. Tobacco use since age 16, up to 2 packs/day 5. Hiatal hernia, moderate in size by chest CT, 2019 6. History of head hemorrhages which upon further evaluation sound like nosebleeds prior to age 22. Resolved after what sounds like cauterization 7. History of physical disabilities requiring braces on his legs and back as a child 8. History of chest pain, admitted 10/2019 with echo showing normal EF with no significant valve disease and Lexiscan Myoview showing no evidence of ischemia with normal EF. A. Admitted 04/27/2020, chest pain and shortness of breath 9. Hyponatremia, possibly related to medication use as patient denies alcohol use. History of present illness: 69-year-old white male with multiple cardiac risk factors as noted above presented to the emergency department for onset of difficulty breathing with associated chest discomfort. Symptoms are noted with exertion but last evening symptoms onset while at rest working on a puzzle. Patient does continue to smoke up to 2 packs/day during the Covid pandemic. Recently was admitted in October of this year for chest discomfort with echo and Lexiscan Myoview showing no significant abnormalities. Troponins overnight were normal x3. EKG is sinus rhythm with right axis deviation and no acute ST segment changes. Cardiology consulted for evaluation and recommendations. Patient does relate exertional shortness of breath chest discomfort at about 100 feet or walking up 1-2 flights of steps. [facility] History Medical History: Reports:: Diabetes Mellitus Type 2, Hyperlipidemia, Hypertension Denies:: Cancer, Diabetes Mellitus Type 1, MRSA *Have you ever received a pneumonia vaccine?: No *Have you received a flu vaccine this season?: No Other Medical History: Reports: Arthritis Other Surgeries: Yes: No Previous Surgery Amputation: No Fractures: No - *Social History Last grade of school completed: 5th or 6th Smoking Status: Current every day smoker Tobacco Type: cigarettes # Packs/Day (cigarettes): 2 Alcohol Intake: former Substance Use Type: denies use *Occupational Status:: retired Housing: apartment *Travel in the last 8 weeks: None Family Hx:: Diabetes Meds Home Medications Medication Instructions Recorded Confirmed Type Docusate Sodium [Docusate Sodium 100 mg PO DAILY 01/31/19 04/27/20 History 100mg Cap] Etanercept [Enbrel Sureclick] 50 mg IM WEEKLY 01/31/19 04/27/20 History LORazepam [Ativan 1mg tablet] 0.5 mg PO BIDP PRN 01/31/19 04/27/20 History Memantine HCl [Memantine HCl ER] 28 mg PO DAILY 01/31/19 04/27/20 History Metformin HCl [Metformin 1000mg 1,000 mg PO BID 01/31/19 04/27/20 History Tablets] Multivit-Min/FA/Lycopen/Lutein 1 tab PO DAILY 01/31/19 04/27/20 History [Abc Plus Tablet] PARoxetine HCL [Paroxetine HCl] 40 mg PO DAILY 01/31/19 04/27/20 History Pravastatin Sodium [Pravachol 20mg 20 mg PO DAILY 01/31/19 04/27/20 History Tablet] Pregabalin [Pregabalin 50mg 50 mg PO TID 01/31/19 04/27/20 History Capsule] Primidone 50 mg PO TID 01/31/19 04/27/20 History Propranolol HCl 10 mg PO TID 01/31/19 04/27/20 History Terazosin HCl 2 mg PO DAILY 01/31/19 04/27/20 History Tolterodine Tartrate [Tolterodine 4 mg PO DAILY
--- NOTE | 2020-04-28 08:08 | HMH.HP ---
*Admission Date: 04/27/20 *Chief complaint: Chest pain *History of present illness: 69-year-old male with hypertension, coronary artery disease, chronic cigarette use presented to the emergency department with chest pain and chest tightness. Patient had similar presentation approximately 6 months ago and had a negative ischemic work-up. Patient was admitted and ruled out for [place] overnight. Cardiology consult has been placed this morning. Patient reports recently he has been smoking heavier than usual [facility] History I have reviewed the patient's past medical history: Yes Medical History: Reports:: Diabetes Mellitus Type 2, Hyperlipidemia, Hypertension Denies:: Cancer, Diabetes Mellitus Type 1, MRSA *Have you ever received a pneumonia vaccine?: No *Have you received a flu vaccine this season?: No Other Medical History: Reports: Arthritis Other Surgeries: Yes: No Previous Surgery Amputation: No Fractures: No - *Social History Last grade of school completed: 5th or 6th Smoking Status: Current every day smoker Tobacco Type: cigarettes # Packs/Day (cigarettes): 2 Alcohol Intake: former Substance Use Type: denies use *Occupational Status:: retired Housing: apartment *Travel in the last 8 weeks: None Family Hx:: Diabetes Review of Systems - Constitutional Denies body ache(s), Denies chills, Denies lack of energy, Denies malaise, Denies night sweats - *Cardiovascular Reports chest pain, Reports chest pain at rest, Denies generalized swelling, Denies irregular heart rhythm, Denies leg swelling - *Respiratory Denies change in phlegm color, Denies chest congestion, Denies cough, Denies shortness of breath - *Genitourinary Denies difficulty urinating, Denies difficulty with ejaculations - *Musculoskeletal Denies abnormal walking, Denies joint pain - Integumentary/Breasts Denies hair loss, Denies bleeding lesions, Denies change in hair Meds Home Medications Medication Instructions Recorded Confirmed Type Docusate Sodium [Docusate Sodium 100 mg PO DAILY 01/31/19 04/27/20 History 100mg Cap] Etanercept [Enbrel Sureclick] 50 mg IM WEEKLY 01/31/19 04/27/20 History LORazepam [Ativan 1mg tablet] 0.5 mg PO BIDP PRN 01/31/19 04/27/20 History Memantine HCl [Memantine HCl ER] 28 mg PO DAILY 01/31/19 04/27/20 History Metformin HCl [Metformin 1000mg 1,000 mg PO BID 01/31/19 04/27/20 History Tablets] Multivit-Min/FA/Lycopen/Lutein 1 tab PO DAILY 01/31/19 04/27/20 History [Abc Plus Tablet] PARoxetine HCL [Paroxetine HCl] 40 mg PO DAILY 01/31/19 04/27/20 History Pravastatin Sodium [Pravachol 20mg 20 mg PO DAILY 01/31/19 04/27/20 History Tablet] Pregabalin [Pregabalin 50mg 50 mg PO TID 01/31/19 04/27/20 History Capsule] Primidone 50 mg PO TID 01/31/19 04/27/20 History Propranolol HCl 10 mg PO TID 01/31/19 04/27/20 History Terazosin HCl 2 mg PO DAILY 01/31/19 04/27/20 History Tolterodine Tartrate [Tolterodine 4 mg PO DAILY 01/31/19 04/27/20 History Tartrate ER] Tramadol HCl [Tramadol 50mg 50 mg PO BID 01/31/19 04/27/20 History Tab] polyethylene glycoL 3350 [Miralax 17 gm PO DAILY 10/19/19 04/27/20 History 17gm Packet] Acetaminophen [Acetaminophen 325mg 650 mg PO BID 10/20/19 04/27/20 History tab] Aspirin [Aspirin 81mg EC Tab] 81 mg PO DAILY 10/20/19 04/27/20 History Dutasteride [Avodart] 0.5 mg PO DAILY 10/20/19 04/27/20 History Fenofibrate Nanocrystallized 145 mg PO DAILY 10/20/19 04/27/20 History [Fenofibrate] lisinopriL [Lisinopril 20mg Tab] 20 mg PO DAILY 10/20/19 04/27/20 History risperiDONE [Risperidone] 0.5 mg PO BID 04/27/20 04/27/20 History Allergies Allergy/AdvReac Type Severity Reaction Status Date / Time Penicillins Allergy Unknown Verified 10/20/19 12:16 allergy reaction tetanus and diphtheria Allergy Unknown Verified 10/20/19 12:16 toxoids allergy reaction Exam Vital signs and Labs for Last 24 Hours: Temp Pulse Resp BP Pulse
--- NOTE | 2020-04-28 08:32 | PC.NURSE ---
wallet and learning developer given to daughter (Flory Stewart). She is @ [employer] and will take items home with her.
[2020-04-28 10:48] LABS: POC Glucose,Bedside 108 (70-110)
--- NOTE | 2020-04-28 10:53 | HMH.PHAINT ---
Home medication list clarified using list from clinic pharmacy
[2020-04-28 13:29] LABS: POC Glucose,Bedside 88 (70-110)
--- NOTE | 2020-04-29 07:27 | HMH.DCSUM ---
General - General Admission date:: 04/27/20 Discharge date: 04/28/20 HPI HPI: 69-year-old male with hypertension, coronary artery disease, chronic cigarette use presented to the emergency department with chest pain and chest tightness. Patient had similar presentation approximately 6 months ago and had a negative ischemic work-up. Patient was admitted and ruled out for [place] overnight. Cardiology consult has been placed this morning. Patient reports recently he has been smoking heavier than usual Hospital Course Hospital Course: Patient was admitted and due to multiple cardiac risk factors as well as second hospitalization this year for anginal type chest pain patient underwent left heart catheterization by Dr. Roberson. Findings were as follows: ANGIOGRAPHIC RESULTS The left main artery Normal The left anterior descending artery Is normal. The large 2.5 mm first diagonal artery has an unusual anatomic kink in its proximal segment. At times the stenosis is 80% while other times this cannot is 20% stenosed The circumflex artery Nondominant and normal The right coronary artery Large dominant normal The AARON ventriculogram reveals Slightly hyperdynamic at 70 to 75% The left ventricular end-diastolic pressure 10 mmHg IMPRESSION No evidence of atherosclerotic plaque Unusual angiographic anatomical kink in the large first diagonal artery which is most likely functioning similarly to a myocardial bridge however involving the diagonal artery rather than the LAD Slightly hyperdynamic ventricle consistent with diastolic dysfunction Normal left ventricular end-diastolic pressure PLAN 1. I seriously doubt the diagonal artery is producing angina especially resting angina. Nevertheless I would still treat this similar to a myocardial bridge and treat with beta-blockers and negative chronotropic drugs. 2. Look for noncardiac etiologies of chest pain Patient had no problems post procedurally. He was discharged home later in the evening on April 28. Patient's beta-john was changed from propranolol to metoprolol. Patient will follow-up in the office in 1 week. Objective Vital signs: Temp Pulse Resp BP Pulse Ox 97.3 F L 90 20 130/63 96 04/28/20 14:30 04/28/20 14:30 04/28/20 14:30 04/28/20 14:30 04/28/20 14:30 no acute distress - *Routine Respiratory Exam Present: CTA bilaterally - *Routine Cardiovascular Exam Present: RRR - *Routine Abdominal Exam Present: soft, normoactive bowel sounds. Absent: tenderness Results Labs on day of discharge: Labs from last 24 hours 04/28/20 04/28/20 13:06 06:05 POC Glucose 88 108 DS: Diagnosis - Discharge Diagnosis (1) Chest pain Status: Acute (2) Hiatal hernia Status: Acute (3) Controlled type 2 diabetes mellitus without complication Status: Acute (4) Hypertension Status: Acute (5) Hyponatremia Status: Acute (6) Tobacco use Status: Acute Discharge Plan - Patient Discharge Instructions ACTIVITY: Continue current activity DIET: continue same diet Patient Instructions: Hypoglycemia, Hiatal Hernia, DI for Hypoglycemia, DI for Hiatal Hernia, DI for Chest Pain - Follow up Plan Follow up with: Edilberto Roberson MD [Staff Physician] - 05/10/20 9:00 am Edi Sorensen MD [Primary Care Provider] - (Patient will be contacted for follow up appt) Disposition: Home, Self-[facility]ci Medications: Home Medications Medication Instructions Recorded Confirmed Type Docusate Sodium [Docusate Sodium 100 mg PO DAILY 01/31/19 04/27/20 History 100mg Cap] Etanercept [Enbrel Sureclick] 50 mg SQ WEEKLY 01/31/19 04/28/20 History LORazepam [Ativan 1mg tablet] 0.5 mg PO BIDP PRN 01/31/19 04/27/20 History Metformin HCl [Metformin 1000mg 1,000 mg PO BID 01/31/19 04/27/20 History Tablets] Multivit-Min/FA/Lycopen/Lutein 1 tab PO DAILY 01/31/19 04/27/20 History [Abc Plus Tablet] PARoxetine HC
== END 2020-04-28 16:30 | disposition home or self-care (01) ==
LOC: ER 20:18 → 2ND 21:00
PROVIDERS: Internal Medicine; Admitting Provider Emergency Medicine; Emergency Provider Emergency Medicine; PCP Family Medicine; Visit Provider Family Medicine
DX: I25.110 Atherosclerotic heart disease of native coronary artery with unstable angina pectoris (principal); I10 Essential (primary) hypertension; Z72.0 Tobacco use; E11.649 Type 2 diabetes mellitus with hypoglycemia without coma; Z79.84 Long term (current) use of oral hypoglycemic drugs; K44.9 Diaphragmatic hernia without obstruction or gangrene; Z79.82 Long term (current) use of aspirin; Z88.7 Allergy status to serum and vaccine; Z88.0 Allergy status to penicillin; E87.1 Hypo-osmolality and hyponatremia
CPT/HCPCS: 36415; 71046; 71275; 80048; 82962; 84484; 85025; 86328; 93005; 93306; 93458; 96374; 99152; 99284; C1725; C1769; G0378; J1644; Q9967

== ENCOUNTER → 2020-12-09 14:46 | Outpatient (CLI) | payer MEDICARE, MEDICAID, SELFPAY ==
--- NOTE | 2020-12-09 14:48 | CT_ITS ---
PROCEDURE: CT LUNG SCREENING CLINICAL INDICATION: HX OF NICOTINE DEPENDENCE Current smoker 75 pack year smoking history. No prior LDLS COMPARISON: CT CT ANGIO CHEST from 04/27/2020 TECHNIQUE: The exam was performed on a GE Light Speed [address] scanner using 2.90 mGy CTDI. A low dose helical CT CHEST was performed on a multi-detector scanner. All CT scans at the facility use one or more dose reduction, viz: automated exposure control, ma/kV adjustment per patient size (including targeted exams where dose is matched to indication, i.e. head), or iterative reconstruction technique. The LDCT was performed in a facility that meets the criteria for the screening program. Data regarding this exam was submitted to ACR which is an approved registry. The order for this exam indicates that it came as a result of a lung cancer screening counseling shard decision-making visit that included all the elements required of such a visit including smoking cessation. The radiologist interpreting this exam meets the CMS criteria for the LDCT lung cancer screening program. The exam is reported using the Lung-RADS classification scale and reported to the ACR registry. NOTE: This study was performed for the specific purposes of lung cancer screening and is not an alternative to diagnostic chest CT. RADIATION DOSE: CTDI vol(CT dose Index-volume) = 2.90mG DLP (Dose Length Product) = 104.99 mGcm FINDINGS: COPD with paraseptal emphysematous change in scattered areas of scarring. There is mild diffuse bronchial thickening. Stable 3 mm nodule right lower lobe. No suspicious pulmonary nodules are evident. Faint tree in bud pattern in the right upper and right middle lobe is no longer apparent. OTHER FINDINGS: Lobular soft tissue density in the anterior mediastinum is once again noted at 2.5 by 1.4 cm not significantly changed. There is mild thickening of the pericardium not significantly changed. There is a medium-sized hiatal hernia. The adrenal glands are slightly prominent on both sides. There is prominent gynecomastia on the right. Subcutaneous lesion is present in the right upper back at 2.8 by 1.8 cm and may represent a sebaceous cyst. IMPRESSION: Lung-RADS Category 2 Benign Appearance or Behavior Other findings described above. Follow-up: Continue annual screening with LDCT in 12 months Dictated by: David Weiss MD 12/16/2020 09:38 David Wesis MD in [place] 12/16/2020 09:38
== END ==
PROVIDERS: PCP Family Medicine; Visit Provider Family Medicine
DX: Z87.891 Personal history of nicotine dependence (principal); Z12.2 Encounter for screening for malignant neoplasm of respiratory organs
CPT/HCPCS: 71271

== ENCOUNTER 2021-01-19 17:36 | Emergency (ER) | payer MEDICARE, MEDICAID, SELFPAY ==
--- NOTE | 2021-01-19 17:28 | ECG_ITS ---
APPROVED REPORT Exam: Resting ECG HR:85 bpm ECG Measurements Heart Rate 85 AXES NJ 196 P 77 QRSd 86 QRS 130 QT 358 T 79 QTc 426 Conclusion Normal sinus rhythm Right axis deviation Abnormal ECG Electronically signed by : Edi Lopez MD 01/20/2021 11:37:37
[2021-01-19 17:36] VITALS: BP 125/76; PULSE 84; RESP 14; TEMP 36.7; O2SAT 96; BMI 31.1
--- NOTE | 2021-01-19 17:38 | XR_ITS ---
PROCEDURE INFORMATION: Exam: XR Chest Exam date and time: 01/19/2021 5:38 PM Age: 70 years old Clinical indication: Patient HX: Chest pain, smoker, no chest surgeries. ; Additional info: Cp TECHNIQUE: Imaging protocol: XR of the chest. Views: 1 view. AP upright portable exam 6:04 p.m. COMPARISON: CR XR CHEST 2V 04/27/2020 6:14 PM FINDINGS: Lungs: Upper normal lung volumes. Chronic bilateral lower pulmonary interstitial prominence. No focal consolidation. Pleural spaces: Unremarkable. No significant pleural effusion. No pneumothorax. Heart/Mediastinum: Cardiac size appears within upper limits normal/borderline enlarged, considering portable AP technique. No interval change. 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 Osteopenia. Spinal degenerative changes, multilevel disc narrowing and spondylosis. Soft tissues: No acute findings in the soft tissues. IMPRESSION: 1. No acute findings or significant change compared with 04/27/2020. 2. Non emergency and chronic findings as above.
[2021-01-19 17:48] LABS: Basophils % 0.3 % (0.1-2.0); Eosinophils # 0.1 K/mm3 (0.0-0.4); Eosinophils % 1.3 % (0.1-12.0); Hematocrit 37.2 % (42.0-52.0); Hemoglobin 12.7 g/dL (14.1-18.0); Lymphocytes # 1.3 K/mm3 (0.7-4.5); Lymphocytes % 18.9 % (10-50); Mean Corpuscular HGB Conc 34.1 g/dL (31.8-35.4); Mean Corpuscular Hemoglobin 32.4 pg (27.0-31.2); Mean Corpuscular Volume 95.2 fl (80-94); Mean Platelet Volume 7.4 fl (7.4-10.4); Monocytes # 0.5 K/mm3 (0.1-1.0); Monocytes % 6.4 % (1.7-9.3); Neutrophils # 5.2 K/mm3 (1.8-7.8); Neutrophils % 73.1 % (37.0-80.0); Platelet Count 361 K/mm3 (142-424); Red Blood Count 3.91 M/mm3 (4.60-6.20); Red Cell Distribution Width 13.4 % (11.5-17.5); White Blood Count 7.1 K/mm3 (4.8-10.8)
[2021-01-19 17:50] LABS: Chloride 92 mmol/L (98-107)
[2021-01-19 17:51] LABS: Potassium 4.2 mmoL/L (3.5-5.1); Sodium 127 mmol/L (136-145)
[2021-01-19 17:54] LABS: Anion Gap 12.2 mEq/L (5-15); Blood Urea Nitrogen 14 mg/dl (9-20); Carbon Dioxide 27 mmol/L (22.0-30.0); Creatinine Clearance Estimated 104 mL/min (50-200); Estimated Glomerular Filt Rate 96 ml/min (>60); GFR (African American) 116 ML/MIN (>60); Glucose 115 mg/dl (74-100)
[2021-01-19 18:01] VITALS: BP 159/87; PULSE 82; O2SAT 92
[2021-01-19 18:45] LABS: Troponin I < 0.01 ng/ml (0.00-0.034)
--- NOTE | 2021-01-19 18:49 | HMH.EDGENADL ---
ED Disposition Clinical Impression: Chronic cough, Atypical chest pain Disposition: Home, Self-Care Condition on Discharge: Good Additional Instructions: Home medicines as directed. Follow-up with your PCP tomorrow. Return to the emergency department for chest pain, shortness of breath, nausea or vomiting Referrals: Edi Sorensen MD [Primary Care Provider] - (Tomorrow) Time of Disposition: 18:55 - Critical Care Critical Care Time: No Attestation: On 01/19/21, the high probability of a clinically significant, sudden or life threatening deterioration of the following system(s) required my full and direct attention, intervention and personal management. The time I documented below is in addition to time spent performing reported procedures but includes the following listed in this critical care notation. Medical Decision Making - Medical Records Medical records reviewed: Yes: I reviewed the patient's medical records. - Sergio Inquiry Pt receiving controlled substance: No Vital Signs: 01/19/21 17:36 01/19/21 18:01 Temperature 98.1 F Temperature Source Oral Pulse Rate 82 Pulse Rate [Right] 84 Respiratory Rate 14 Blood Pressure 159/87 H Blood Pressure [Right Arm] 125/76 Blood Pressure Mean [Right Arm] 92 Blood Pressure Source Automatic Cuff Blood Pressure Position Sitting 02 Sat by Pulse Oximetry 96 92 L Oxygen Delivery Method Room Air Room Air - Lab Data Lab results reviewed: Yes: I reviewed the patient's lab results. Lab Results 01/19/21 17:38: WBC 7.1, RBC 3.91 L, Hgb 12.7 L, Hct 37.2 L, MCV 95.2 H, MCH 32.4 H, MCHC 34.1, RDW 13.4, Plt Count 361, MPV 7.4, Neut % (Auto) 73.1, Lymph % (Auto) 18.9, [place] % (Auto) 6.4, Eos % (Auto) 1.3, Baso % (Auto) 0.3, Neut # (Auto) 5.2, Lymph # (Auto) 1.3, [place] # (Auto) 0.5, Eos # (Auto) 0.1, Baso # (Auto) 0.0 01/19/21 17:38: Sodium 127 L, Potassium 4.2, Chloride 92 L, Carbon Dioxide 27, Anion Gap 12.2, BUN 14, Creatinine 0.80, Estimated Creat Clear 104, Estimated GFR 96, Est GFR ( Amer) 116, Glucose 115 H, Calcium 9.0, Troponin I < 0.01 Result diagrams: 01/19/21 17:38 01/19/21 17:38 Orders (Tests/Meds): ORDERS Category Date Time Status CXR --portable [XR chest portable] Stat Exams 01/19/21 17:38 Taken Troponin I Q3H Lab 01/19/21 20:45 Ordered - ECG Data Tracing #1 I reviewed this ECG and interpreted as documented below: Normal sinus rhythm, no ST elevation or depression, no ectopy, normal intervals. ECG initial impression date: 01/19/21 ECG initial impression time: 17:30 - CITLALLI Score for Non-Stemi Age of Patient: 60-69 years old Heart Rate: 70-89 bpm Systolic Blood Pressure: 120-139 mmhg Serum Creatinine: 0.80-1.19 mg/dl CHF Killip Class: I-No CHF Other Risk Factors: None Non-Stemi Risk Score: 108 Medical Decision Narrative: 70yo M evaluated for chest pain and shortness of breath. Patient no acute distress on initial evaluation. Routine cardiac work-up has been initiated. Physical exam is benign. EKG as above. Chest x-ray without acute pathology on my wet read. Patient underwent nuclear stress test October of last year that showed 65% ejection fraction with no other defect appreciated. Patient's chest pain seems to be centered around his coughing episodes, and this is likely brought on by his continued heavy smoking. He reports using his inhaler as directed. Believe the patient is appropriate and stable for discharge home at this time. Encouraged to follow-up with his PCP tomorrow. General Adult HPI - General Chief complaint: Chest Pain Stated complaint: Chest Pain Time Seen by Provider: 01/19/21 18:49 Mode of Arrival: Family Vehicle Limitations: No Limitations Description of Symptoms (Recalled from ER Triage Doc. by RN): Patient c/o chest pain that started this morning. Patient denies any cardiac history. Patient also c/o SOA that is worse with exertion. Patient ambulatory in ED triage. - History of Present Il
[2021-01-19 18:55] VITALS: BP 132/74; PULSE 76; RESP 18; TEMP 36.8; O2SAT 97
== END 2021-01-19 19:04 | disposition home or self-care (01) ==
PROVIDERS: Emergency Provider Family Medicine; PCP Family Medicine
DX: R07.89 Other chest pain (principal); E11.9 Type 2 diabetes mellitus without complications; E78.5 Hyperlipidemia, unspecified; F17.210 Nicotine dependence, cigarettes, uncomplicated; Z79.899 Other long term (current) drug therapy
CPT/HCPCS: 71045; 80048; 84484; 85025; 93005; 99283

== ENCOUNTER 2021-12-22 15:53 | Inpatient (IN) | payer MEDICARE, MEDICAID, SELFPAY ==
[2021-12-22] VITALS (14 sets, daily range): BP systolic 115–134; BP diastolic 57–81; PULSE 65–86; RESP 17–20; TEMP 36.4–37.2; O2SAT 89–94; BMI 29.0; BMI 29.1
--- NOTE | 2021-12-22 15:48 | ECG_ITS ---
APPROVED REPORT Exam: Resting ECG HR:67 bpm ECG Measurements Heart Rate 67 AXES AR 203 P 15 QRSd 80 QRS 121 QT 371 T 76 QTc 386 Conclusion SINUS RHYTHM INDETERMINATE AXIS POSSIBLE RIGHT VENTRICULAR CONDUCTION DELAY [RSR (QR) IN V1/V2] ABNORMAL ECG UNCONFIRMED REPORT Electronically signed by : Edi Lopez MD 12/25/2021 14:08:05
--- NOTE | 2021-12-22 16:00 | XR_ITS ---
FINAL REPORT CLINICAL HISTORY: CHEST PAIN COMPARISON: January 19, 2021 FINDINGS: The heart size is normal. The mediastinum is normal. There are mild, left greater than right, bibasilar opacities. There are no pleural effusions. There is no pneumothorax. There is no osseous abnormality. IMPRESSION: Bibasilar opacities could represent atelectasis or pneumonia. Reviewed, Interpreted and Dictated by Phani Grimm III, MD Transcribed by Alex Fonseca Authenticated and [facility]
--- NOTE | 2021-12-22 16:01 | PC.NURSE ---
PT HAD A DUO NEB EN ROUTE BY EMS HE STATES THAT MADE HIM FEEL ALOT BETTER
--- NOTE | 2021-12-22 16:04 | HMH.EDGENADL ---
ED Disposition Clinical Impression: COPD exacerbation, Atypical chest pain Pneumonia Qualifiers: Pneumonia type: due to unspecified organism Laterality: left Lung location: upper lobe of lung Qualified Code(s): J18.9 - Pneumonia, unspecified organism Respiratory failure with hypoxia Qualifiers: Chronicity: acute Qualified Code(s): J96.01 - Acute respiratory failure with hypoxia Disposition: Admitted As Inpatient Condition on Discharge: [facility] - Critical Care Critical Care Time: No Attestation: On 12/22/21, the high probability of a clinically significant, sudden or life threatening deterioration of the following system(s) required my full and direct attention, intervention and personal management. The time I documented below is in addition to time spent performing reported procedures but includes the following listed in this critical care notation. Medical Decision Making - Medical Records Medical records reviewed: Yes: I reviewed the patient's medical records. MR Comment: Reviewed previous heart cath result, see below. - Sergio Inquiry Pt receiving controlled substance: No Vital Signs: 12/22/21 15:54 12/22/21 16:30 12/22/21 16:34 Temperature 97.5 F L Temperature Source Oral Pulse Rate 74 Pulse Rate [Right Radial] 69 Respiratory Rate 20 20 Blood Pressure 116/59 L Blood Pressure [Right Arm] 118/74 Blood Pressure Mean 78 Blood Pressure Mean [Right Arm] 88 Blood Pressure Source [Right Arm] Automatic Cuff Blood Pressure Position [Right Arm] Sitting 02 Sat by Pulse Oximetry 93 L 90 L 89 L Oxygen Delivery Method Room Air Room Air Room Air Oxygen Flow Rate (LPM) 12/22/21 17:01 12/22/21 17:30 12/22/21 18:00 Temperature Temperature Source Pulse Rate 75 74 71 Pulse Rate [Right Radial] Respiratory Rate 18 19 Blood Pressure 117/67 126/61 134/73 Blood Pressure [Right Arm] Blood Pressure Mean 71 82 Blood Pressure Mean [Right Arm] Blood Pressure Source [Right Arm] Blood Pressure Position [Right Arm] 02 Sat by Pulse Oximetry 92 L 94 L 91 L Oxygen Delivery Method Nasal Cannula Nasal Cannula Nasal Cannula Oxygen Flow Rate (LPM) 2 2 2 12/22/21 18:30 Temperature Temperature Source Pulse Rate Pulse Rate [Right Radial] Respiratory Rate Blood Pressure 131/81 Blood Pressure [Right Arm] Blood Pressure Mean 92 Blood Pressure Mean [Right Arm] Blood Pressure Source [Right Arm] Blood Pressure Position [Right Arm] 02 Sat by Pulse Oximetry 94 L Oxygen Delivery Method Nasal Cannula Oxygen Flow Rate (LPM) 2 - Lab Data Lab Results 12/22/21 15:55: WBC 7.8, RBC 4.04 L, Hgb 13.1 L, Hct 41.4 L, MCV 102.6 H, MCH 32.5 H, MCHC 31.7 L, RDW 13.4, Plt Count 402, MPV 7.4, Neut % (Auto) 73.8, Lymph % (Auto) 17.3, [place] % (Auto) 6.8, Eos % (Auto) 1.2, Baso % (Auto) 0.8, Neut # (Auto) 5.7, Lymph # (Auto) 1.3, [place] # (Auto) 0.5, Eos # (Auto) 0.1, Baso # (Auto) 0.1 12/22/21 15:55: Sodium 123 L, Potassium 3.8, Chloride 87 L, Carbon Dioxide 29, Anion Gap 10.8, BUN 10, Creatinine 0.60 L, Estimated Creat Clear 100, Estimated GFR 134, Est GFR ( Amer) 162, Glucose 95, Calcium 9.5, Troponin I < 0.01 12/22/21 15:55: Urine Color Yellow, Urine Appearance Clear, Urine pH 6.5, Ur Specific [place] <= 1.005, Urine Protein Negative, Urine Glucose (UA) Negative, Urine Ketones Negative, Urine Blood Negative, Urine Nitrate Negative, Urine Bilirubin Negative, Urine Urobilinogen 0.2, Ur Leukocyte Esterase Negative, Urine RBC Occasional, Urine WBC None, Ur Squamous Epith Cells Occasional, Urine Bacteria None 12/22/21 15:55: SARS-CoV-2 (PCR) Not detected, Influenza A Untype (PCR) Not detected, Influenza Type B (PCR) Not detected 12/22/21 15:55: D-Dimer 0.88 H Result diagrams: 12/22/21 15:55 12/22/21 15:55 Orders (Tests/Meds): ED MEDICATIONS Generic Name Dose Route Start Last Admin Trade Name Freq PRN Reason Stop Dose Admin Levofloxacin/Dextrose 750 mg in 150 mls @ 100 mls/hr
[2021-12-22 16:06] LABS: Basophils # 0.1 K/mm3 (0-0.2); Basophils % 0.8 % (0.1-2.0); Eosinophils # 0.1 K/mm3 (0.0-0.4); Eosinophils % 1.2 % (0.1-12.0); Hematocrit 41.4 % (42.0-52.0); Hemoglobin 13.1 g/dL (14.1-18.0); Lymphocytes # 1.3 K/mm3 (0.7-4.5); Lymphocytes % 17.3 % (10-50); Mean Corpuscular HGB Conc 31.7 g/dL (31.8-35.4); Mean Corpuscular Hemoglobin 32.5 pg (27.0-31.2); Mean Corpuscular Volume 102.6 fl (80-94); Mean Platelet Volume 7.4 fl (7.4-10.4); Monocytes # 0.5 K/mm3 (0.1-1.0); Monocytes % 6.8 % (1.7-9.3); Neutrophils # 5.7 K/mm3 (1.8-7.8); Neutrophils % 73.8 % (37.0-80.0); Platelet Count 402 K/mm3 (142-424); Red Blood Count 4.04 M/mm3 (4.60-6.20); Red Cell Distribution Width 13.4 % (11.5-17.5); White Blood Count 7.8 K/mm3 (4.8-10.8)
[2021-12-22 16:08] LABS: Chloride 87 mmol/L (98-107); Potassium 3.8 mmoL/L (3.5-5.1); Sodium 123 mmol/L (136-145)
[2021-12-22 16:11] LABS: Anion Gap 10.8 mEq/L (5-15); Blood Urea Nitrogen 10 mg/dl (9-20); Calcium 9.5 mg/dl (8.4-10.2); Carbon Dioxide 29 mmol/L (22.0-30.0); Creatinine Clearance Estimated 100 mL/min (50-200); Estimated Glomerular Filt Rate 134 ml/min (>60); GFR (African American) 162 ML/MIN (>60); Glucose 95 mg/dl (74-100)
[2021-12-22 16:14] LABS: Coronavirus 19, PCR Not Detected (NotDetected); Influenza A, PCR Not Detected (NotDetected); Influenza B, PCR Not Detected (NotDetected); Microscopic, Urine URINE MICROSCOPIC (MICROSCOPIC)
[2021-12-22 16:15] LABS: Appearance,Urine CLEAR (Clear); Bilirubin,Urine Negative (Negative); Blood, Urine Negative (Negative); Color,Urine YELLOW (Yellow); Glucose,Urine (UA) Negative (Negative); Ketones,Urine Negative (Negative); Leukocyte Esterase,Urine Negative (Negative); Nitrate,Urine Negative (Negative); PH,Urine 6.5 (5.0-8.5); Protein,Urine Negative (Negative); Specific Gravity, Urine <= 1.005 (1.005-1.030); Urobilinogen,Urine 0.2 EU/dl (0.2)
[2021-12-22 16:28] LABS: RBC,Urine Occasional #/hpf (0-3); Squamous Epithelial Cell,Urine Occasional #/hpf (0-5)
[2021-12-22 16:30] LABS: Troponin I < 0.01 ng/ml (0.00-0.034)
--- NOTE | 2021-12-22 16:33 | PC.NURSE ---
pt placed on 2L per NC at this time pt saO2 89-91% at this time on RA
[2021-12-22 16:47] LABS: D-Dimer 0.88 ug/mL (0.0-0.5)
--- NOTE | 2021-12-22 17:03 | CT_ITS ---
PROCEDURE INFORMATION: Exam: CTA Chest With Contrast Exam date and time: 12/22/2021 5:01 PM Age: 70 years old Clinical indication: Shortness of breath; Additional info: Cp, SOA, elev d-dimer TECHNIQUE: Imaging protocol: Computed tomographic angiography of the chest with contrast. 3D rendering (Not supervised by radiologist): MIP and/or 3D reconstructed images were created by the technologist. Radiation optimization: All CT scans at this facility use at least one of these dose optimization techniques: automated exposure control; mA and/or kV adjustment per patient size (includes targeted exams where dose is matched to clinical indication); or iterative reconstruction. Contrast material: ISOVUE 370; Contrast volume: 70 ml; Contrast route: INTRAVENOUS (IV); COMPARISON: CT ANGIO CHEST 04/27/2020 7:26 PM FINDINGS: Pulmonary arteries: Borderline dilated main pulmonary artery, approximate 3.4 cm diameter, raising the possibility of history of pulmonary hypertension. No acute pulmonary emboli. No large, central, or segmental emboli. Aorta: No thoracic aortic aneurysm. No evidence of dissection, the aorta is suboptimally enhanced on this PE protocol exam. Multiple atherosclerotic calcified plaques. Lungs: There is a new tubular branching density in the anterior left upper lobe with surrounding reticulonodular opacity, likely due to left upper lobe bronchitis and pneumonia. This was not present on the prior exam, compare series 7, images 39-42 of today's study to corresponding series 3 images 38-46 of the prior exam. Recommend follow-up to resolution to exclude underlying endobronchial tumor/lung cancer. There is also worsened interstitial scarring or subsegmental atelectasis in the lateral right middle lobe, see coronal series 1001, images 35-38, but no focal consolidation or nodule. Other milder scattered areas of subsegmental atelectasis. Cystic emphysematous changes at the apices greater on the right. Pleural spaces: Unremarkable. No significant pleural effusion. No pneumothorax. Heart: A small pericardial effusion, slightly increased in the interval, up to 1.7 cm thickness anteriorly series 7, image 97. The heart is not enlarged. A few coronary artery calcifications are present. Heart RV/LV ratio: RV/LV ratio is borderline elevated, approximate 1. No reflux of contrast into the IVC or hepatic veins to suggest acute right heart strain. A slightly prominent left atrial appendage. Mediastinal space: Tiny chronic anterior mediastinal cyst of approximately 1.7 cm series 7, image 67, unchanged compared with 04/27/2020. Lymph nodes: Slightly increased size of right paratracheal node, up to 1.9 x 1.1 cm series 7, image 54. No other significantly enlarged nodes by short axis criteria. No significant axillary adenopathy. Diaphragm: A previous large hiatal hernia has been repaired or resolved since the previous exam. Adrenal glands: Mild left adrenal hypertrophy. No discrete nodule. Series 7, image 19. Kidneys and ureters: A chronic simple appearing left upper pole renal cortical cystic lesion of 1.8 cm series 7, image 130, incompletely imaged, no further follow-up indicated based on the appearance of the visualized portion of the lesion. Bones/joints: There are spinal degenerative changes, with multilevel disc narrrowing and spondylosis. Soft tissues: Chronic asymmetric right breast tissue compared with left, likely benign gynecomastia, but this has increased in density compared with 04/27/2020, correlate clinically to exclude underlying breast cancer or mastitis. See series 7, image 80. Chronic subcutaneous nodules, likely sebaceous c
--- NOTE | 2021-12-22 17:06 | PC.NURSE ---
Notified rad of CTA order
--- NOTE | 2021-12-22 17:14 | PC.NURSE ---
pt to CT via stretcher
--- NOTE | 2021-12-22 17:27 | PC.NURSE ---
pt returned from Ct at this time via stretcher. Pt requesting that call his daughter just to let her know he is here and in case they dont keep me she will have to take me home .
--- NOTE | 2021-12-22 17:30 | PC.NURSE ---
notified pt daughter francisca via phone at this time.
--- NOTE | 2021-12-22 17:49 | PC.NURSE ---
report given to jenny ivy
--- NOTE | 2021-12-22 18:41 | PC.NURSE ---
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
--- NOTE | 2021-12-22 18:44 | PC.NURSE ---
on the phone with
--- NOTE | 2021-12-22 18:50 | PC.NURSE ---
Notified power house engineer of the need for a bed
--- NOTE | 2021-12-22 19:28 | PC.NURSE ---
Attempted to call report, nurse unavailable at this time and will call soon.
[2021-12-22 19:49] LABS: Troponin I < 0.01 ng/ml (0.00-0.034)
--- NOTE | 2021-12-22 20:17 | PC.NURSE ---
Pt's daughter gave an update on pt's condition. Pt is being transfered to 2nd floor at this time.
--- NOTE | 2021-12-22 20:24 | PC.NURSE ---
patient up to floor via wheelchair @ this time.
[2021-12-22 22:05] LABS: Troponin I < 0.01 ng/ml (0.00-0.034)
[2021-12-23] VITALS (11 sets, daily range): BP systolic 90–156; BP diastolic 58–76; PULSE 58–128; RESP 16–20; TEMP 36.3–37.8; O2SAT 93–100; BMI 29.1
[2021-12-23 00:17] LABS: POC Glucose,Bedside 275 (70-110)
[2021-12-23 00:17] LABS: POC Glucose,Bedside 283 (70-110)
--- NOTE | 2021-12-23 04:00 | PC.NURSE ---
pt admitted this shift, pt rested well through the night, no complaints of chest pain or sob, 02 at 2L with sats at 97%; lung sounds diminished with scattered crackles and diminished; VSS; tele reveals NSR with HR 70-80; pt a&o x4, no other issues or concerns at this time.
--- NOTE | 2021-12-23 09:16 | HMH.PHAVTE ---
[facility] Pharmacy VTE Monitoring - Patient Demographics Admission date: 12/23/21 Report Date: 12/23/21 Time: 09:16 Allergies/Adverse Reactions: Patient Allergies Penicillins Allergy (Verified 05/10/20 09:06) Unknown allergy reaction tetanus and diphtheria toxoids Allergy (Verified 05/10/20 09:06) Unknown allergy reaction Height: 1.85 m Weight: 99.79 kg Patient Problems: Current Active Problems Atypical chest pain (Acute) COPD exacerbation (Acute) Pneumonia (Acute) Respiratory failure with hypoxia (Acute) - VTE Risk Labs: VTE Related Lab Results Hgb 13.1 g/dL (14.1-18.0) L 12/22/21 15:55 Hct 41.4 % (42.0-52.0) L 12/22/21 15:55 Plt Count 402 K/mm3 (142-424) 12/22/21 15:55 BUN 10 mg/dl (9-20) 12/22/21 15:55 Creatinine 0.60 mg/dl (0.66-1.25) L 12/22/21 15:55 Estimated Creat Clear 100 mL/min (50-200) 12/22/21 15:55 Was VTE Risk Assessment Performed: Yes VTE Score: 2 VTE Risk Level: Low Risk Clinical Trial Participant: No - Prophylaxis VTE Prophylaxis Ordered?: Yes Types of VTE Prophylaxis: TEDS Knee High
--- NOTE | 2021-12-23 09:42 | HMH.PHAINT ---
home medication list verified using list from [facility] Meds on Time list
--- NOTE | 2021-12-23 11:04 | HMH.HP ---
*Admission Date: 12/23/21 *Chief complaint: Chest pain and shortness of breath *History of present illness: Mr. Cottrell is a 70-year-old white male who presented to the emergency room via ambulance yesterday afternoon with a 1 day history of left-sided chest pain and shortness of breath. EMS stated he was wheezing upon their arrival and this improved with a nebulizer treatment. He was mildly hypoxemic on room air in the ER. He was worked up in the emergency room with labs, chest x-ray, CTA and was diagnosed with a left upper lobe pneumonia and admitted for further treatment. At the time of my exam this morning, he states he is feeling somewhat better. His chest pain has resolved. He is less short of breath. He still has some cough. Cardiac enzymes have been negative x3. He had an essentially normal heart cath 2 years ago. [facility] History Medical History: Reports:: Diabetes Mellitus Type 2, Hyperlipidemia, Hypertension Denies:: Cancer, Diabetes Mellitus Type 1, MRSA *Have you ever received a pneumonia vaccine?: Yes *Have you received a flu vaccine this season?: Yes Other Medical History: Reports: Arthritis, Other (Mood disorder, BPH) Other Surgeries: Yes: No Previous Surgery, Cardiac Catheterization Amputation: No Fractures: No - *Social History Last grade of school completed: 5th or 6th Smoking Status: Heavy tobacco smoker Tobacco Type: cigarettes # Packs/Day (cigarettes): 3 Alcohol Intake: never Substance Use Type: denies use *Occupational Status:: retired Housing: apartment Household Members: none *Travel in the last 8 weeks: None Family Hx:: Diabetes Review of Systems - Constitutional Reports malaise, Denies fever(s) - Eyes Denies change in vision - ENT Reports abnormal hearing (Presbycusis), Reports dizziness, Reports headache(s) - *Cardiovascular Reports chest pain (Resolved), Reports shortness of breath, Denies leg swelling, Denies rapid, pounding, or irregular heartbeat - *Respiratory Reports cough, Denies coughing up blood - *Gastrointestinal Denies abdominal pain, Denies change in stools - *Genitourinary Reports urinary frequency, Denies painful urination - *Musculoskeletal Reports joint pain - Integumentary/Breasts Denies change in skin color, Denies rash - *Neurologic Reports abnormal hearing (Presbycusis), Denies confusion, Denies dizziness - Psychiatric Reports other (Mood disorder) - Endocrine Denies rapid, pounding, or irregular heartbeat - Hematologic/Lymphatic Denies easy bruising - Allergic/Immunologic Denies wheezing Meds Home Medications Medication Instructions Recorded Confirmed Type Etanercept [Enbrel Sureclick] 50 mg SQ WEEKLY 01/31/19 12/22/21 History LORazepam [Ativan 1mg tablet] 0.5 mg PO BIDP PRN 01/31/19 12/22/21 History PARoxetine HCL [Paroxetine HCl] 40 mg PO DAILY 01/31/19 12/22/21 History Pravastatin Sodium [Pravachol 20mg 20 mg PO HS 01/31/19 12/23/21 History Tablet] Pregabalin [Pregabalin 50mg 50 mg PO TID 01/31/19 12/22/21 History Capsule] Primidone 50 mg PO TID 01/31/19 12/22/21 History Tramadol HCl [Tramadol 50mg 50 mg PO BID 01/31/19 12/22/21 History Tab] Aspirin [Aspirin 81mg EC Tab] 81 mg PO DAILY 10/20/19 12/22/21 History risperiDONE [Risperidone] 0.5 mg PO BID 04/27/20 12/22/21 History Metoprolol Tartrate [Lopressor 25 mg PO BID 12/22/21 12/23/21 History 25mg tablet] Docusate Sodium [Colace] 100 mg PO DAILY 12/23/21 12/23/21 History Dutasteride 0.5 mg PO HS 12/23/21 12/23/21 History Fenofibrate Nanocrystallized 145 mg PO HS 12/23/21 12/23/21 History [Fenofibrate] Metformin HCl [Metformin 1000mg 1,000 mg PO BID 12/23/21 12/23/21 History Tablets] Multivitamin [Multi-Vitamin Plain] 1 tab PO DAILY 12/23/21 12/23/21 History Terazosin HCl 2 mg PO HS 12/23/21 12/23/21 History Tiotropium Polson [Spiriva 2 puff IH DAILY 12/23/21 12/23/21 History Respimat] Tolterodine Tartrate [Tolterodine 4 mg PO DAILY 12/23/21
[2021-12-23 17:23] LABS: POC Glucose,Bedside 130 (70-110)
[2021-12-23 17:23] LABS: POC Glucose,Bedside 150 (70-110)
--- NOTE | 2021-12-23 20:32 | PC.NURSE ---
Patient up in chair most of day watching TV; ambulates to bathroom independently with O2 2L NC; VSS; shows no s/s of acute distress, call light within reach, bed at lowest level for safety; will continue to monitor.
[2021-12-24] VITALS: PULSE 60
[2021-12-24 04:00] VITALS: BP 128/71; PULSE 60; PULSE 72; RESP 18; TEMP 36.7; O2SAT 94
[2021-12-24 04:46] VITALS: BMI 21.9
[2021-12-24 06:33] VITALS: PULSE 65; PULSE 66; O2SAT 95
[2021-12-24 08:00] VITALS: BP 103/50; PULSE 71; RESP 16; TEMP 36.4; O2SAT 92
[2021-12-24 08:13] VITALS: PULSE 80
--- NOTE | 2021-12-24 08:26 | PC.NURSE ---
LATE ENTRY - NO ACUTE CHANGES SINCE PREVIOUS ASSESSMENT. PT HAS BEEN NSR W/ 1ST DEGREE AV BLOCK ON TELE. PT HAS MAINTAINED SPO2 >90% ON 2 L NC. PT DID NOT REQUIRE INSULIN COVERAGE THIS SHIFT FOR FSBS. PT RESTED WELL THIS SHIFT. PT HAS HAD NO COMPLAINTS. CALL LIGHT IN REACH.
[2021-12-24 08:29] LABS: POC Glucose,Bedside 124 (70-110)
[2021-12-24 08:29] LABS: POC Glucose,Bedside 130 (70-110)
--- NOTE | 2021-12-24 09:17 | P.PN_ITS ---
Internal Medicine - PN: Subj *Date: 12/24/21 *Time: 09:19 Interval history: States he slept well last night and is breathing better this morning. Denies cough or chest pain. Exam Vital signs and Labs for Last 24 Hours: Temp Pulse Resp BP Pulse Ox 97.6 F 80 16 103/50 L 92 L 12/24/21 08:00 12/24/21 08:13 12/24/21 08:00 12/24/21 08:00 12/24/21 08:00 Laboratory Results - last 24 hr 12/23/21 11:46: POC Glucose 150 H 12/23/21 17:11: POC Glucose 130 H 12/23/21 21:41: POC Glucose 124 H 12/24/21 05:30: POC Glucose 130 H I & O for Last 24 hours: Intake & Output 12/21/21 12/22/21 12/23/21 12/24/21 11:59 11:59 11:59 11:59 Intake Total 480 / 480 2069 Output Total 200 / 200 Balance 280 / 280 2069 Weight 220 lb 166 lb Narrative: He appears comfortable. No respiratory distress. Color is good. Chest with generally diminished breath sounds few rhonchi. No wheezes. Heart is regular. Assessment and Plan (1) Pneumonia Status: Acute Qualifiers: Pneumonia type: due to unspecified organism Laterality: left Lung location: upper lobe of lung Qualified Code(s): J18.9 - Pneumonia, unspecified organism Category: Medical Code(s): J18.9 - Pneumonia, unspecified organism (2) COPD (chronic obstructive pulmonary disease) Status: Acute Category: Medical Code(s): J44.9 - Chronic obstructive pulmonary disease, unspecified (3) BPH (benign prostatic hyperplasia) Status: Acute Category: Medical Code(s): N40.0 - Benign prostatic hyperplasia without lower urinary tract symptoms (4) Mood disorder Status: Acute Category: Medical Code(s): F39 - Unspecified mood [affective] disorder (5) Type 2 diabetes mellitus Status: Acute Category: Medical Code(s): E11.9 - Type 2 diabetes mellitus wi thout complications (6) Chronic back pain Status: Acute Category: Medical Code(s): M54.9 - Dorsalgia, unspecified; G89.29 - Other chronic pain (7) Osteoarthritis Status: Acute Category: Medical Code(s): M19.90 - Unspecified osteoarthritis, unspecified site (8) Tobacco use Status: Chronic Category: Social Hx Code(s): Z72.0 - Tobacco use (9) Pericardial effusion Status: Acute Category: Medical Code(s): I31.3 - Pericardial effusion (noninflammatory) - Assessment and plan all Dx Assessment and Plan for all problems:: He is feeling much better. Will wean to room air this morning. If sats are satisfactory, he may be able to discharge later today.
--- NOTE | 2021-12-24 11:08 | PC.NURSE ---
Addendum entered by Sagrario Montez RN 12/24/21 12:46: Patient O2 sats continue to be >90% on room air Original Note: O2 saturation 93% without oxygen
[2021-12-24 12:00] VITALS: BP 110/65; PULSE 57; RESP 18; TEMP 36.6; O2SAT 99
[2021-12-24 12:01] VITALS: BMI 21.9
--- NOTE | 2021-12-24 23:37 | HMH.DCSUM ---
General - General Admission date:: 12/22/21 <Evgeny White - 01/02/22 21:54> 12/22/21 <Mely Hall - 12/24/21 23:42> Discharge date: 12/24/21 <Mely Hall - 12/24/21 23:42> HPI HPI: Mr. Cottrell is a 70-year-old white male who presented to the emergency room via ambulance yesterday afternoon with a 1 day history of left-sided chest pain and shortness of breath. EMS stated he was wheezing upon their arrival and this improved with a nebulizer treatment. He was mildly hypoxemic on room air in the ER. He was worked up in the emergency room with labs, chest x-ray, CTA and was diagnosed with a left upper lobe pneumonia and admitted for further treatment. At the time of my exam this morning, he states he is feeling somewhat better. His chest pain has resolved. He is less short of breath. He still has some cough. Cardiac enzymes have been negative x3. He had an essentially normal heart cath 2 years ago. <Mely Hall - 12/24/21 23:42> Hospital Course Hospital Course: The patient was admitted for treatment of his pneumonia with IV Levaquin and supplemental oxygen. He was started on DuoNeb treatments and resumed on some of his home medications. By 12/24/2021, he had slept well and was breathing better. He denied any cough or chest pain. He was weaned to room air and stable to be discharged. <Mely Hall - 12/24/21 23:42> Objective Vital signs: Temp Pulse Resp BP Pulse Ox 97.9 F 57 L 18 110/65 99 12/24/21 12:00 12/24/21 12:00 12/24/21 12:00 12/24/21 12:00 12/24/21 12:00 <Evgeny White - 01/02/22 21:54> Temp Pulse Resp BP Pulse Ox 97.9 F 57 L 18 110/65 99 12/24/21 12:00 12/24/21 12:00 12/24/21 12:00 12/24/21 12:00 12/24/21 12:00 <Mely Hall - 12/24/21 23:42> Narrative: - Constitutional no acute distress (Sitting up in recliner) - *Routine HEENT Exam Head: Present: normocephalic, atraumatic Eye: Present: PERRL. Absent: scleral injection ENT: Present: mucous membranes moist, other (Edentulous) Comments: Hard of hearing - *Routine Neck Exam Present: supple, carotid bruit. Absent: lymphadenopathy - *Routine Respiratory Exam Present: decreased breath sounds, rhonchi. Absent: wheezes - *Routine Cardiovascular Exam Present: RRR - *Routine Abdominal Exam Present: soft. Absent: tenderness, distended - *Routine Rectal Exam Rectal:: deferred - *Routine Genitalia Exam Genitalia:: deferred - *Routine Extremities Exam Absent: edema - *Routine Skin Exam Present: dry, warm. Absent: rash - *Routine Neurological Exam Present: alert, oriented X3. Absent: motor deficit, tremors <Mely Hall - 12/24/21 23:42> Results Labs on day of discharge: Labs from last 24 hours 12/24/21 12/23/21 05:30 21:41 POC Glucose 130 H 124 H <Mely Hall - 12/24/21 23:42> DS: Diagnosis - Discharge Diagnosis (1) Pneumonia Status: Acute (2) COPD (chronic obstructive pulmonary disease) Status: Acute (3) BPH (benign prostatic hyperplasia) Status: Acute (4) Mood disorder Status: Acute (5) Type 2 diabetes mellitus Status: Acute (6) Chronic back pain Status: Acute (7) Osteoarthritis Status: Acute (8) Tobacco use Status: Chronic (9) Pericardial effusion Status: Acute <Mely Hall - 12/24/21 23:37> (1) Pneumonia Status: Acute (2) COPD (chronic obstructive pulmonary disease) Status: Acute (3) BPH (benign prostatic hyperplasia) Status: Acute (4) Mood disorder Status: Acute (5) Type 2 diabetes mellitus Status: Acute (6) Chronic back pain Status: Acute (7) Osteoarthritis Status: Acute (8) Tobacco use Status: Chronic (9) Pericardial effusion Status: Acute <Evgeny White - 01/02/22 21:54> Discharge Plan - Patient Discharge Instructions ACTIVITY: Continue current activity <Mely Hall - 12/15
[2021-12-25 00:38] LABS: POC Glucose,Bedside 105 (70-110)
--- NOTE | 2021-12-25 13:39 | CARE MANAGER ---
Spoke with daughter for post-discharge phone interview, she states that patient is doing well and has no complaints.
== END 2021-12-24 13:18 | disposition home or self-care (01) | DRG 194 ==
LOC: ER 18:50 → 2ND 19:23
PROVIDERS: Admitting Provider Family Medicine; Emergency Provider Emergency Medicine; Visit Provider Family Medicine
DX: J18.9 Pneumonia, unspecified organism (principal); I31.3 Pericardial effusion (noninflammatory); F17.210 Nicotine dependence, cigarettes, uncomplicated; J44.0 Chronic obstructive pulmonary disease with (acute) lower respiratory infection; E11.9 Type 2 diabetes mellitus without complications; J44.9 Chronic obstructive pulmonary disease, unspecified; N40.0 Benign prostatic hyperplasia without lower urinary tract symptoms; Z79.899 Other long term (current) drug therapy; Z79.84 Long term (current) use of oral hypoglycemic drugs; F39 Unspecified mood [affective] disorder; G89.29 Other chronic pain; M19.90 Unspecified osteoarthritis, unspecified site; M54.9 Dorsalgia, unspecified
CPT/HCPCS: 36415; 71045; 71275; 80048; 81001; 82962; 84484; 85025; 85378; 87070; 87205; 93005; 94640; 94761; 99285; C9803; J1956; Q9967; U0003; U0005

== ENCOUNTER 2022-02-07 16:31 | Emergency (ER) | payer MEDICARE, MEDICAID, SELFPAY ==
--- NOTE | 2022-02-07 16:22 | ECG_ITS ---
APPROVED REPORT Exam: Resting ECG HR:71 bpm ECG Measurements Heart Rate 71 AXES NV 173 P -5 QRSd 102 QRS 123 QT 383 T 58 QTc 405 Conclusion SINUS RHYTHM POSSIBLE RIGHT VENTRICULAR HYPERTROPHY [SOME/ALL OF: PROMINENT R IN V1, LATE TRANSITION, RAD, GIOVANA, SSS] ABNORMAL ECG UNCONFIRMED REPORT Electronically signed by : Edi Lopez MD 02/10/2022 08:11:22
[2022-02-07 16:33] VITALS: BP 129/69; PULSE 70; RESP 20; TEMP 36.8; O2SAT 95; BMI 25.0
--- NOTE | 2022-02-07 16:36 | XR_ITS ---
PROCEDURE INFORMATION: Exam: XR Chest Exam date and time: 02/07/2022 5:08 PM Age: 71 years old Clinical indication: Pain; Chest pressure; Additional info: Cp, tightness with inspiration TECHNIQUE: Imaging protocol: Radiologic exam of the chest. Views: 1 view. COMPARISON: CR XR CHEST PORTABLE 12/22/2021 4:03 PM FINDINGS: Lungs: Bibasilar regions of subsegmental atelectasis. Pleural spaces: Unremarkable. No pleural effusion. No pneumothorax. Heart/Mediastinum: Unremarkable. No cardiomegaly. Bones/joints: Unremarkable. IMPRESSION: No evidence of acute cardiopulmonary disease.
--- NOTE | 2022-02-07 16:50 | PC.NURSE ---
urine and covid swab sent to lab
[2022-02-07 16:58] LABS: Coronavirus 19, PCR Not Detected (NotDetected); Influenza A, PCR Not Detected (NotDetected); Influenza B, PCR Not Detected (NotDetected); Microscopic, Urine URINE MICROSCOPIC (MICROSCOPIC)
[2022-02-07 17:00] LABS: Basophils # 0.1 K/mm3 (0-0.2); Basophils % 0.6 % (0.1-2.0); Eosinophils # 0.2 K/mm3 (0.0-0.4); Hematocrit 36.3 % (42.0-52.0); Hemoglobin 11.6 g/dL (14.1-18.0); Lymphocytes # 1.4 K/mm3 (0.7-4.5); Lymphocytes % 16.7 % (10-50); Mean Corpuscular HGB Conc 31.9 g/dL (31.8-35.4); Mean Corpuscular Hemoglobin 32.3 pg (27.0-31.2); Mean Corpuscular Volume 101.4 fl (80-94); Mean Platelet Volume 7.6 fl (7.4-10.4); Monocytes # 0.6 K/mm3 (0.1-1.0); Neutrophils # 6.1 K/mm3 (1.8-7.8); Neutrophils % 73.6 % (37.0-80.0); Platelet Count 424 K/mm3 (142-424); Red Blood Count 3.58 M/mm3 (4.60-6.20); Red Cell Distribution Width 13.5 % (11.5-17.5); White Blood Count 8.3 K/mm3 (4.8-10.8)
[2022-02-07 17:12] LABS: Appearance,Urine CLEAR (Clear); Bilirubin,Urine Negative (Negative); Blood, Urine Negative (Negative); Color,Urine STRAW (Yellow); Glucose,Urine (UA) Negative (Negative); Ketones,Urine Negative (Negative); Leukocyte Esterase,Urine Negative (Negative); Nitrate,Urine Negative (Negative); Protein,Urine Negative (Negative); Specific Gravity, Urine 1.015 (1.005-1.030); Urobilinogen,Urine 0.2 EU/dl (0.2)
[2022-02-07 17:14] LABS: Anion Gap 8.1 mEq/L (5-15); Blood Urea Nitrogen 14 mg/dl (9-20); Calcium 9.1 mg/dl (8.4-10.2); Carbon Dioxide 30 mmol/L (22.0-30.0); Chloride 96 mmol/L (98-107); Creatinine Clearance Estimated 83 mL/min (50-200); Estimated Glomerular Filt Rate 134 ml/min (>60); GFR (African American) 162 ML/MIN (>60); Glucose 84 mg/dl (74-100); Potassium 4.1 mmoL/L (3.5-5.1); Sodium 130 mmol/L (136-145)
[2022-02-07 17:22] LABS: Bacteria,Urine Trace /lpf; Squamous Epithelial Cell,Urine Occasional #/hpf (0-5); WBC,Urine Occasional #/hpf (0-3)
[2022-02-07 17:29] LABS: Troponin I < 0.01 ng/ml (0.00-0.034)
--- NOTE | 2022-02-07 18:54 | HMH.EDGENADL ---
Discharge Plan Disposition Patient Disposition: Home, Self-Care Condition: Good Chief Complaint: Chest Pain Prescriptions Prescriptions: No Action primidone 50 MG tablet 50 mg PO TID Label Comments: TAKE 1 TABLET BY MOUTH THREE TIMES DAILY tramadol 50 tablet 50 mg PO BID pravastatin 20 MG tablet 20 mg PO HS Label Comments: TAKE 1 TABLET BY MOUTH ONCE DAILY lorazepam 1 tablet 0.5 mg PO BIDP PRN (Reason: anxiety ) paroxetine HCl 40 MG tablet 40 mg PO DAILY Label Comments: TAKE 1 TABLET BY MOUTH ONCE DAILY. pregabalin 50 capsule 50 mg PO TID etanercept 50 MG/ML pen injector 50 mg SQ WEEKLY Label Comments: INJECT THE CONTENTS OF ONE AUTOINJECTOR SUBCUTANEOUSLY ONCE A WEEK risperidone [Risperdal] 0.5 MG tablet 0.5 mg PO BID aspirin 81 MG tablet,delayed release (DR/EC) 81 mg PO DAILY metoprolol tartrate 25 MG tablet 25 mg PO BID tolterodine 4 MG capsule,extended release 24hr 4 mg PO DAILY lisinopril 20 MG tablet 20 mg PO DAILY terazosin 2 MG capsule 2 mg PO HS metformin 1,000 MG tablet 1,000 mg PO BID docusate sodium 100 MG capsule 100 mg PO DAILY dutasteride 0.5 MG capsule 0.5 mg PO HS fenofibrate nanocrystallized 145 MG tablet 145 mg PO HS Label Comments: TAKE ONE TABLET BY MOUTH EVERY DAY multivitamin with folic acid 1 EACH tablet 1 tab PO DAILY tiotropium bromide 4 GM mist 2 puff IH DAILY levofloxacin 750 MG tablet 750 mg PO DAILY Qty: 5 0RF Referrals Referrals: Provider,Referral, MD [Primary Care Provider] - Enter time for follow up Activity Restrictions/Add. Instructions Additional Instructions/Restrictions: Additional instructions for CHEST PAIN: See your physician as soon as possible for further evaluation. Return immediately if worsening chest pain, vomiting, shortness of breath, fever, coughing of blood. Clinical Impressions Clinical Impression: Atypical chest pain Instructions Patient Instructions: DI for Atypical Chest Pain Discharge ED Provider: Piter Gonzalez General Adult HPI General Chief complaint: Chest Pain Stated complaint: CP with inspiration Time Seen by Provider: 02/07/22 18:54 Mode of Arrival: EMS Source of Information: Patient Limitations: No Limitations Description of Symptoms (Recalled from ER Triage Doc. by RN): Pt c/o chest tightness with inspiration History of Present Illness HPI narrative: The patient is brought in by EMS. States that all day long he has had chest discomfort in the upper part of his chest and into his back. He has shortness of breath. States that he has been coughing his head off for the past couple of days. Sputum is clear. No fever. No leg pain or swelling. Says that he was sent admitted here for the same problem last month. States he was diagnosed with pneumonia. He has a history of COPD and currently continues to smoke. States he has been a smoker for more than 16 years. He does not have any known heart disease. Related Data Home Medications Medication Instructions Recorded Confirmed etanercept 50 mg/mL (1 mL) 50 mg SQ WEEKLY Arthritis 01/31/19 12/22/21 subcutaneous pen injector lorazepam 1 mg tablet 0.5 mg PO BIDP PRN anxiety 01/31/19 12/22/21 paroxetine HCl 40 mg tablet 40 mg PO DAILY depression 01/31/19 12/22/21 pravastatin 20 mg tablet 20 mg PO HS Cholesterol 01/31/19 12/23/21 pregabalin 50 mg capsule 50 mg PO TID pain 01/31/19 12/22/21 primidone 50 mg tablet 50 mg PO TID Tremors 01/31/19 12/22/21 tramadol 50 mg tablet 50 mg PO BID Pain 01/31/19 12/22/21 aspirin 81 mg tablet,delayed 81 mg PO DAILY HEART HEALTH 10/20/19 12/22/21 release risperidone 0.5 mg tablet 0.5 mg PO BID MOOD 04/27/20 12/22/21 (Risperdal) metoprolol tartrate 25 mg tablet 25 mg PO BID Hypertension 12/22/21 12/23/21 docusate sodium 100 mg capsule 100 mg PO DAILY constipation 12/23/21
--- NOTE | 2022-02-07 20:22 | PC.NURSE ---
pt daughter called updated per pt request
[2022-02-07 20:27] LABS: Troponin I < 0.01 ng/ml (0.00-0.034)
[2022-02-07 20:47] VITALS: BP 124/75; PULSE 71; RESP 20; TEMP 36.8; O2SAT 95
== END 2022-02-07 20:49 | disposition home or self-care (01) ==
PROVIDERS: Emergency Provider Emergency Medicine
DX: R07.9 Chest pain, unspecified (principal); Z79.82 Long term (current) use of aspirin; Z79.899 Other long term (current) drug therapy; Z79.84 Long term (current) use of oral hypoglycemic drugs; Z88.0 Allergy status to penicillin; Z88.7 Allergy status to serum and vaccine; J44.9 Chronic obstructive pulmonary disease, unspecified; E11.9 Type 2 diabetes mellitus without complications; I10 Essential (primary) hypertension
CPT/HCPCS: 36415; 71045; 80048; 81001; 84484; 85025; 93005; 99284; C9803; U0003; U0005

== ENCOUNTER → 2022-03-21 09:00 | Outpatient (CLI) | payer MEDICARE, MEDICAID, SELFPAY ==
[2022-03-21 13:24] LABS: Basophils % 0.7 % (0.1-2.0); Eosinophils # 0.2 K/mm3 (0.0-0.4); Hematocrit 38.3 % (42.0-52.0); Hemoglobin 12.4 g/dL (14.1-18.0); Lymphocytes # 1.4 K/mm3 (0.7-4.5); Lymphocytes % 28.9 % (10-50); Mean Corpuscular HGB Conc 32.5 g/dL (31.8-35.4); Mean Corpuscular Hemoglobin 32.5 pg (27.0-31.2); Monocytes # 0.4 K/mm3 (0.1-1.0); Monocytes % 8.7 % (1.7-9.3); Neutrophils # 2.8 K/mm3 (1.8-7.8); Neutrophils % 57.7 % (37.0-80.0); Platelet Count 362 K/mm3 (142-424); Red Blood Count 3.83 M/mm3 (4.60-6.20); Red Cell Distribution Width 14.1 % (11.5-17.5); White Blood Count 4.9 K/mm3 (4.8-10.8)
[2022-03-21 13:36] LABS: Alanine Aminotransferase 21 U/L (12-78); Albumin Level 3.7 g/dl (3.5-5.0); Albumin/Globulin Ratio 1.4 (1.1-1.8); Alkaline Phosphatase 71 U/L (38-126); Anion Gap 15.8 mEq/L (5-15); Aspartate Amino Transferase 27 U/L (17-59); Bilirubin,Total < 0.1 mg/dl (0.2-1.3); Blood Urea Nitrogen 11 mg/dl (9-20); Calcium 8.9 mg/dl (8.4-10.2); Carbon Dioxide 29 mmol/L (22.0-30.0); Chloride 85 mmol/L (98-107); Chol/HDL Ratio 1.7 (1-3.5); Cholesterol 92 mg/dl (140-200); Estimated Glomerular Filt Rate 165 ml/min (>60); GFR (African American) 199 ML/MIN (>60); Globulin 2.6 g/dL (1.3-3.2); Glucose 77 mg/dl (74-100); HDL Cholesterol 55 mg/dl (40-60); Potassium 4.8 mmoL/L (3.5-5.1); Sodium 125 mmol/L (136-145); Total Protein,Serum 6.3 g/dl (6.3-8.2); Triglycerides 29 mg/dl (30-150); VLDL Cholesterol 6 mg/dL (0-40)
[2022-03-21 13:48] LABS: Direct LDL Cholesterol < 30.00 mg/dL (100-129)
[2022-03-21 13:52] LABS: 25-OH Vitamin D, Total 37.2 ng/mL (30-100)
[2022-03-21 14:07] LABS: Thyroid Stimulating Hormone 0.23 uIU/mL (0.465-4.68)
[2022-03-21 14:26] LABS: Vitamin B12 737 pg/mL (239-931)
[2022-03-21 21:03] LABS: Hemoglobin A1C 4.8 % (4.0-6.0)
[2022-03-22 09:08] LABS: Iron 69 ug/dL (49-181)
[2022-03-22 09:17] LABS: Total Iron Binding Capacity 459 ug/dL (261-462)
[2022-03-22 09:44] LABS: Ferritin 48.6 ng/ml (17.9-464)
== END ==
PROVIDERS: PCP Emergency Medicine; Visit Provider Physician Assistant
DX: E11.9 Type 2 diabetes mellitus without complications (principal); G62.9 Polyneuropathy, unspecified; M54.50 Low back pain, unspecified; E55.9 Vitamin D deficiency, unspecified; D64.9 Anemia, unspecified
CPT/HCPCS: 80053; 80061; 82306; 82607; 82728; 83036; 83540; 83550; 84443; 85025

== ENCOUNTER → 2022-03-29 15:07 | Outpatient (CLI) | payer MEDICARE, MEDICAID, SELFPAY ==
--- NOTE | 2022-03-29 15:48 | MR_ITS ---
PROCEDURE INFORMATION: Exam: MR Lumbar Spine Without Contrast Exam date and time: 03/29/2022 4:15 PM Age: 71 years old Clinical indication: Low back pain; Additional info: Low back pain. Left leg pain. Bilateral leg weakness. TECHNIQUE: Imaging protocol: Magnetic resonance imaging of the lumbar spine without contrast. COMPARISON: CT ABDOMEN PELVIS W CON 01/31/2019 11:30 PM FINDINGS: Bones/joints: Multilevel spondylosis which is great cyst and moderate to severe at L5-S1. Vertebral body heights maintained. Slight scoliosis, concave to the right. Lower lumbar facet arthrosis. Tiny Tarlov cyst in the sacral region. Spinal cord: The conus is grossly unremarkable. T12-L1: Mild left paracentral disc bulge and mild left lateral recess stenosis at T12-L1. No evidence of high-grade neural foraminal or central spinal stenosis. L1-L2: No significant central spinal or neural foraminal stenosis. L2-L3: Minimal disc bulge with posterior annular fissure. Mild thecal sac effacement. Otherwise, no evidence of significant central spinal or neural foraminal stenosis. L3-L4: Slight disc bulge. Thickening of the ligamentum flavum. Mild central spinal stenosis. [id number] bilateral neural foraminal stenosis. L4-L5: Mild disc bulge. Posterior element hypertrophic changes. Mild central spinal stenosis. Moderate bilateral neural foraminal stenosis. L5-S1: No significant central spinal stenosis. Moderate bilateral neural foraminal stenosis. Soft tissues: Minimal subcutaneous edema posteriorly. Soft tissues: Unremarkable. Kidneys and ureters: Right renal cysts. The largest measures up to 4.9 cm, but is only partially imaged. There is a 7 mm lesion in the right kidney which is T2 hypointense and does not meet criteria for a simple cyst, but is otherwise inadequately characterized. IMPRESSION: 1. Mild multilevel central spinal stenosis. No evidence of severe central spinal stenosis. 2. Multilevel neural foraminal stenosis which is estimated to be moderate in severity bilaterally at L4-L5 and L5-S1. 3. Right renal cysts. The largest measures up to 4.9 cm, but is only partially imaged. There is a 7 mm lesion in the right kidney which is T2 hypointense and does not meet criteria for a simple cyst, but is otherwise inadequately characterized. Recommend follow-up multiphase CT or MRI with IV contrast for further characterization. 4. Other findings as detailed in the body of the report.
== END ==
PROVIDERS: PCP Physician Assistant; Visit Provider Physician Assistant
DX: G62.9 Polyneuropathy, unspecified (principal); M54.50 Low back pain, unspecified
CPT/HCPCS: 72148; 76376

== ENCOUNTER 2022-07-23 21:32 | Inpatient (IN) | payer MEDICARE, MEDICAID, SELFPAY ==
[2022-07-23 21:32] VITALS: BP 108/59; PULSE 62; RESP 24; TEMP 37.1; O2SAT 93; BMI 26.5
--- NOTE | 2022-07-23 21:37 | ECG_ITS ---
APPROVED REPORT Exam: Resting ECG HR:59 bpm ECG Measurements Heart Rate 59 AXES QRSd 106 QRS 108 QT 421 T 83 QTc 421 Conclusion ATRIAL FIBRILLATION WITH SLOW VENTRICULAR RESPONSE RIGHT AXIS DEVIATION [QRS AXIS > 100] MODERATE ST DEPRESSION [0.05+ mV ST DEPRESSION] ABNORMAL ECG UNCONFIRMED REPORT Electronically signed by : Edi Lopez MD 07/24/2022 20:21:09
[2022-07-23 21:42] LABS: ABG Base Excess 1.5 mmol/L (-2.4-2.3); ABG HCO3 26.9 mmhg (22.0-26.0); ABG Oxygen Saturation 98 % (90-100); ABG PCO2 48.3 mmhg (35.0-45.0); ABG PH 7.36 mmol/L (7.35-7.45); ABG TCO2 28.3 mmhg (23-27); Allen's Test Acceptable; Oxygen 2LPM %; Source Right Radial
[2022-07-23 21:48] LABS: Coronavirus 19, PCR Not Detected (NotDetected); Influenza A, PCR Not Detected (NotDetected); Influenza B, PCR Not Detected (NotDetected)
--- NOTE | 2022-07-23 21:56 | PC.NURSE ---
Pt daughter at BS
[2022-07-23 21:58] LABS: Microscopic, Urine URINE MICROSCOPIC (MICROSCOPIC)
[2022-07-23 22:00] VITALS: BP 111/61; PULSE 58; O2SAT 93
[2022-07-23 22:11] LABS: Appearance,Urine CLEAR (Clear); Bilirubin,Urine Negative (Negative); Blood, Urine TRACE-I (Negative); Color,Urine YELLOW (Yellow); Glucose,Urine (UA) Negative (Negative); Ketones,Urine Negative (Negative); Leukocyte Esterase,Urine Negative (Negative); Nitrate,Urine Negative (Negative); Protein,Urine Negative (Negative); Urobilinogen,Urine 0.2 EU/dl (0.2)
[2022-07-23 22:23] LABS: Basophils % 0.6 % (0.1-2.0); Eosinophils # 0.2 K/mm3 (0.0-0.4); Hematocrit 32.9 % (42.0-52.0); Hemoglobin 11.1 g/dL (14.1-18.0); Lymphocytes # 1.1 K/mm3 (0.7-4.5); Lymphocytes % 15.4 % (10-50); Mean Corpuscular HGB Conc 33.6 g/dL (31.8-35.4); Mean Corpuscular Hemoglobin 32.5 pg (27.0-31.2); Mean Corpuscular Volume 96.7 fl (80-94); Mean Platelet Volume 7.2 fl (7.4-10.4); Monocytes # 0.5 K/mm3 (0.1-1.0); Monocytes % 6.9 % (1.7-9.3); Neutrophils # 5.3 K/mm3 (1.8-7.8); Neutrophils % 74.1 % (37.0-80.0); Platelet Count 316 K/mm3 (142-424); Red Cell Distribution Width 13.5 % (11.5-17.5); White Blood Count 7.1 K/mm3 (4.8-10.8)
--- NOTE | 2022-07-23 22:26 | XR_ITS ---
PROCEDURE INFORMATION: Exam: XR Chest Exam date and time: 07/23/2022 10:46 PM Age: 71 years old Clinical indication: Shortness of breath; Additional info: SOA TECHNIQUE: Imaging protocol: Radiologic exam of the chest. Views: 1 view. COMPARISON: CR XR CHEST PORTABLE 02/07/2022 5:08 PM FINDINGS: Lungs: No acute appearing consolidation. Subtle opacity in the left lung base related to atelectasis or pneumonia. Pleural spaces: No pleural effusion. No pneumothorax. Heart/Mediastinum: No acute findings or cardiomegaly. Bones/joints: No acute findings. IMPRESSION: Subtle opacity in the left lung base related atelectasis or pneumonia.
[2022-07-23 22:30] VITALS: BP 110/60; PULSE 55; O2SAT 95
[2022-07-23 22:30] LABS: Alanine Aminotransferase 24 U/L (12-78); Albumin/Globulin Ratio 1.4 (1.1-1.8); Alkaline Phosphatase 60 U/L (38-126); Aspartate Amino Transferase 30 U/L (17-59); Bilirubin,Total 0.3 mg/dl (0.2-1.3); Blood Urea Nitrogen 14 mg/dl (9-20); Calcium 8.2 mg/dl (8.4-10.2); Carbon Dioxide 34 mmol/L (22.0-30.0); Chloride 82 mmol/L (98-107); Creatinine Clearance Estimated 83 mL/min (50-200); Estimated Glomerular Filt Rate 134 ml/min (>60); GFR (African American) 162 ML/MIN (>60); Globulin 2.9 g/dL (1.3-3.2); Glucose 111 mg/dl (74-100); Lactic Acid 1.1 mmol/L (0.7-2.1); Sodium 119 mmol/L (136-145); Total Protein,Serum 6.9 g/dl (6.3-8.2)
[2022-07-23 22:35] LABS: Squamous Epithelial Cell,Urine Occasional #/hpf (0-5); WBC,Urine Occasional #/hpf (0-3)
--- NOTE | 2022-07-23 22:35 | PC.NURSE ---
RAD at for CXR
[2022-07-23 22:44] LABS: Troponin I < 0.01 ng/ml (0.00-0.034)
[2022-07-23 23:00] VITALS: BP 98/66; PULSE 53; O2SAT 96
--- NOTE | 2022-07-23 23:18 | PC.NURSE ---
Pt daughter updated on POC. No needs voiced at this time.
--- NOTE | 2022-07-23 23:23 | PC.NURSE ---
Dr. Camara at speaking with pt/family
--- NOTE | 2022-07-23 23:26 | PC.NURSE ---
s/w Maksim Simpson, manager corporate communications hospitialist, for possible admission. House notified for admission.
--- NOTE | 2022-07-23 23:36 | HMH.EDSOB ---
Discharge Plan Disposition Patient Disposition: Admitted As Inpatient Chief Complaint: Shortness of Breath/Dyspnea Clinical Impressions Clinical Impression: Acute exacerbation of chronic obstructive airways disease, Tobacco use, Acute hyponatremia Discharge ED Provider: Hoa (ED)Toño Resp/SOB HPI General Chief Complaint: Shortness of Breath/Dyspnea Stated Complaint: SOA Time Seen by Provider: 07/23/22 23:30 Mode of Arrival: EMS Source of Information: Patient, Relative, EMS and Medical Record Limitations: No Limitations Description of Symptoms (Recalled from ER Triage Doc. by RN): pt c/o difficulty breathing for 2 days pt daughter showed up but the pt stated that he was to weak to walk to the car. pt brought in by EMS on an albuterol treatment. EMS stated that the pt was weezing with audible crackles. History of Present Illness progressive sob over the last few days with hx of tob use and copd - no fever or vomiting - MD Complaint: shortness of breath Onset (ago): day(s) Severity: moderate Known history of: COPD Associated symptoms: denies other symptoms Treatment prior to arrival: bronchodilator Related Data Home oxygen amount: 2 liters Home Medications Medication Instructions Recorded Confirmed etanercept 50 mg/mL (1 mL) 50 mg SQ WEEKLY Arthritis 01/31/19 03/21/22 subcutaneous pen injector pravastatin 20 mg tablet 20 mg PO HS Cholesterol 01/31/19 03/21/22 primidone 50 mg tablet 50 mg PO TID Tremors 01/31/19 03/21/22 aspirin 81 mg tablet,delayed 81 mg PO DAILY HEART HEALTH 10/20/19 03/21/22 release risperidone 0.5 mg tablet 0.5 mg PO BID MOOD 04/27/20 03/21/22 (Risperdal) docusate sodium 100 mg capsule 100 mg PO DAILY constipation 12/23/21 03/21/22 dutasteride 0.5 mg capsule 0.5 mg PO HS overactive bladder 12/23/21 03/21/22 fenofibrate nanocrystallized 145 145 mg PO HS Cholesterol 12/23/21 03/21/22 mg tablet lisinopril 20 mg tablet 20 mg PO DAILY Hypertension 12/23/21 03/21/22 multivitamin with folic acid 400 1 tab PO DAILY Supplement 12/23/21 03/21/22 mcg tablet terazosin 2 mg capsule 2 mg PO HS Hypertension 12/23/21 03/21/22 tolterodine 4 mg capsule,extended 4 mg PO DAILY overactive bladder 12/23/21 03/21/22 release 24 hr lorazepam 1 mg tablet 0.5 mg PO BID anxiety 03/21/22 03/21/22 tiotropium bromide 2.5 2 inh inhalation DAILY 03/21/22 03/21/22 mcg/actuation mist for inhalation (Spiriva Respimat) Previous Rx's Medication Instructions Recorded paroxetine HCl 40 mg tablet 40 mg PO DAILY depression #90 tabs 03/22/22 albuterol sulfate 90 mcg/actuation 2 inh inhalation Q4-6H COPD #8.5 03/28/22 aerosol inhaler grams metoprolol tartrate 25 mg tablet 12.5 mg PO BID blood pressure #60 04/02/22 tabs pregabalin 50 mg capsule 50 mg PO TID pain #90 caps 06/12/22 tramadol 50 mg tablet 50 mg PO BID Pain #60 tabs 06/12/22 lorazepam 0.5 mg tablet 0.5 mg PO BID #60 tabs 07/16/22 Allergies Allergy/AdvReac Type Severity Reaction Status Date / Time Penicillins Allergy Unknown Verified 03/21/22 08:14 allergy reaction tetanus and diphtheria Allergy Unknown Verified 03/21/22 08:14 toxoids allergy reaction PFSH [facility] Disclaimer: The information contained in this section may have been updated after the patient was seen, as this information can be updated by other users. 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
--- NOTE | 2022-07-23 23:36 | PC.NURSE ---
Hospitalist, Maksim, at BS
--- NOTE | 2022-07-23 23:54 | PC.NURSE ---
called report to Angélica BARBER on 2nd floor
[2022-07-23 23:55] VITALS: BP 139/70; PULSE 68; RESP 22; TEMP 36.7; O2SAT 98
[2022-07-24] VITALS (14 sets, daily range): BP systolic 105–154; BP diastolic 54–73; PULSE 56–90; RESP 18–24; TEMP 36.4–36.8; O2SAT 94–100; BMI 23.5
[2022-07-24 00:08] LABS: Procalcitonin 0.047 ng/mL (0.0-2.0); T4 (Thyroxine) 9.2 ug/dl (5.53-11.0)
--- NOTE | 2022-07-24 00:12 | PC.NURSE ---
admission packet collected from front desk officer. med/surg staff here to transfer pt
--- NOTE | 2022-07-24 00:16 | PC.NURSE ---
PT ARRIVED TO FLOOR BY STRETCHER AT THIS TIME
[2022-07-24 00:22] LABS: Thyroid Stimulating Hormone 0.32 uIU/mL (0.465-4.68)
--- NOTE | 2022-07-24 00:27 | EXP.HP ---
History of Present Illness *Admission Date: 07/24/22 *Reason for visit:: Shortness of air *History of present illness: Mr. Cottrell is a 71-year-old male with a past medical history of Chronic Tobacco Use with a >100 pack year history, COPD on chronic home oxygen therapy and chronic hyponatremia. He presented to [facility] through the ER due to shortness of air outside his normal that occurred a few hours prior to presentation. Daughter was at bedside who helped with information for the history and physical. The patient denies cough, fevers, body aches or chills. The daughter reports that the patient has been slightly confused and complaining of shortness of air. In the ER, the patient underwent a Cxray that showed a subtle opacity in the left lung lobe that was concerning for atelectasis or early pneumonia. Troponin was <0.01. EKG showed atrial fibrillation with rate in the 50's. ABG was unremarkable. Covid and Flu testing were negative. Sodium level was 119. The patient will be admitted with initial impression: Hyponatremia and COPD exacerbation. In the ER the patient received nebulizers and steroids. [facility] Disclaimer: The information contained in this section may have been updated after the patient was seen, as this information can be updated by other users. 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 Hyperlipidemia Hypertension Mood disorder Normal coronary arteries Pericardial effusion Psoriasis Respiratory failure with hypoxia Type 2 diabetes mellitus Family History (Updated 07/24/22 @ 00:58 by Angélica Perla RN) Diabetes Cancer Social History (Updated 07/24/22 @ 01:01 by Angélica Perla RN) Smoking Status: Current every day smoker tobacco type: cigarettes packs per day: 3 alcohol intake: never substance use type: denies use current occupational status: retired Travel in the last 8 weeks: None household members: none housing: apartment number of children: 3 caffeine: Yes Review of Systems Review of Systems Review of systems:: pertinent systems reviewed and negative unless documented below Constitutional Constitutional: Reports system reviewed and no additional complaints, except as documented and Reports weakness Eyes Eyes: Reports system reviewed and no additional complaints, except as documented ENT Ears, Nose, Mouth, and Throat: Reports system reviewed and no additional complaints, except as documented and Reports vertigo *Cardiovascular Cardiovascular: Reports system reviewed and no additional complaints, except as documented and Reports dyspnea *Respiratory Respiratory: Reports dyspnea *Gastrointestinal Gastrointestinal: Reports system reviewed and no additional complaints, except as documented *Genitourinary Genitourinary: Reports system reviewed and no additional complaints, except as documented *Musculoskeletal Musculoskeletal: Reports system reviewed and no additional complaints, except as documented Integumentary/Breasts Skin/Breast: Reports system reviewed and no additional complaints, except as documented *Neurologic Neurologic: Reports confusion, Reports vertigo and Reports weakness Psychiatric Psychiatric: Reports confusion Endocrine Endocrine: Reports system reviewed and no additional complaints, except as documented Hematologic/Lymphatic Hematologic/Lymphatic: Reports system reviewed and no additional complaints, except as documented Allergic/Immunologic Allergic/Immunologic: Reports system reviewed and no additional complaints, except as documented Meds Home Medications and Allergies Home Medications Medication Instructions Recorded Confirmed Type etanercept 50 mg/mL (1 mL) 50 mg SQ WEEKLY Arthritis 01/31/19 07/24/22 History subcutaneous pen injector pravastatin 20 mg tab
--- NOTE | 2022-07-24 00:37 | CT_ITS ---
PROCEDURE INFORMATION: Exam: CTA Chest With Contrast Exam date and time: 07/24/2022 1:19 AM Age: 71 years old Clinical indication: Shortness of breath; Additional info: Shortness of air TECHNIQUE: Imaging protocol: Computed tomographic angiography of the chest with contrast. 3D rendering (Not supervised by radiologist): MIP and/or 3D reconstructed images were created by the technologist. Radiation optimization: All CT scans at this facility use at least one of these dose optimization techniques: automated exposure control; mA and/or kV adjustment per patient size (includes targeted exams where dose is matched to clinical indication); or iterative reconstruction. Contrast material: ISOVUE; Contrast volume: 70 ml; Contrast route: INTRAVENOUS (IV); Other protocol: This patient has received [address] and 0 known cardiac nuclear medicine studies in the 12 months prior to the current study. COMPARISON: CT ANGIO CHEST PE PROTOCOL 12/22/2021 5:01 PM FINDINGS: Pulmonary arteries: Mildly dilated pulmonary trunk and main pulmonary arteries which can be seen in pulmonary hypertension. There is significant motion artifact which limits evaluation of the segmental and subsegmental pulmonary artery branches, especially in the mid lungs and lung bases. No large or central pulmonary embolus is identified. Aorta: No aortic aneurysm. No aortic dissection. Lungs: Mild primarily paraseptal emphysematous changes. Interval increase in the size of the branching soft tissue attenuation lesion in the left upper lobe is concerning for malignancy. Lesion measures approximately 3.5 x 1.1 x 1.2 cm. Pleural spaces: Stable appearing 5 mm pleural based nodule in the left major fissure, image 59 series 5. Heart: Anterior mediastinal/pericardial adenopathy is 1.6 x 3.7 x 2.3 cm, increased compared to the prior exam Left hilar adenopathy is 1.4 cm which is new. Lymph nodes: Adenopathy in the AP window is 1.9 cm which is new. Diaphragm: Small hiatal hernia. Adrenal glands: Low-density bilateral adrenal hypertrophy. Bones/joints: No acute fracture. Soft tissues: Gynecomastia. IMPRESSION: 1. No large or central pulmonary embolus. 2. No acute consolidation or airspace disease. 3. Enlarging branching soft tissue mass lesion in the left upper lobe concerning for malignancy. Follow-up PET-CT is recommended. 4. Interval development of mediastinal and left hilar adenopathy and increasing anterior mediastinal/pericardial adenopathy concerning for metastatic disease. 5. Mild prominence of the central pulmonary arteries which can be seen in pulmonary hypertension. 6. COPD. 7. Other chronic changes as described. COMMENTS: In the absence of a history or active diagnosis of lung cancer, it is recommended that this patient with emphysema be evaluated for enrollment in a low dose CT lung cancer screening program.
--- NOTE | 2022-07-24 01:34 | PC.NURSE ---
pt back from ct scan
[2022-07-24 02:41] LABS: Anion Gap 6.6 mEq/L (5-15); Blood Urea Nitrogen 12 mg/dl (9-20); Calcium 8.1 mg/dl (8.4-10.2); Carbon Dioxide 31 mmol/L (22.0-30.0); Chloride 86 mmol/L (98-107); Creatinine Clearance Estimated 73 mL/min (50-200); Estimated Glomerular Filt Rate 134 ml/min (>60); GFR (African American) 162 ML/MIN (>60); Glucose 149 mg/dl (74-100); Potassium 3.6 mmoL/L (3.5-5.1); Sodium 120 mmol/L (136-145)
[2022-07-24 02:59] LABS: Troponin I < 0.01 ng/ml (0.00-0.034)
[2022-07-24 06:44] LABS: Chloride 91 mmol/L (98-107); Potassium 4.1 mmoL/L (3.5-5.1); Sodium 125 mmol/L (136-145)
[2022-07-24 06:47] LABS: Anion Gap 9.1 mEq/L (5-15); Blood Urea Nitrogen 9 mg/dl (9-20); Carbon Dioxide 29 mmol/L (22.0-30.0); Creatinine Clearance Estimated 73 mL/min (50-200); Estimated Glomerular Filt Rate 213 ml/min (>60); GFR (African American) 258 ML/MIN (>60)
[2022-07-24 06:48] LABS: Calcium 8.5 mg/dl (8.4-10.2); Glucose 179 mg/dl (74-100)
[2022-07-24 07:01] LABS: Troponin I < 0.01 ng/ml (0.00-0.034)
--- NOTE | 2022-07-24 09:20 | EXP.PULM.CON ---
History of Present Illness History of present illness: Mr. Cottrell is a 71-year-old male current smoker greater than [id number] smoking stable presented to the hospital complaining worsening respiratory distress, CTA performed concerning for lung nodule and lymphadenopathy and pulmonary was called for further evaluation. Shortness of breath chronic with slight worsening of associated intermittent cough and productive phlegm. Denies any worsening cough or productive phlegm. Not associate with any fevers or chills. [facility] Disclaimer: The information contained in this section may have been updated after the patient was seen, as this information can be updated by other users. 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 Hilar lymphadenopathy Hyperlipidemia Hypertension Lung nodule Mediastinal lymphadenopathy Mood disorder Normal coronary arteries Pericardial effusion Psoriasis Respiratory failure with hypoxia Type 2 diabetes mellitus Family History (Updated 07/24/22 @ 00:58 by Angélica Perla RN) Other Cancer Diabetes Social History (Updated 07/24/22 @ 01:01 by Angélica Perla RN) Smoking Status: Current every day smoker tobacco type: cigarettes packs per day: 3 alcohol intake: never substance use type: denies use current occupational status: retired Travel in the last 8 weeks: None household members: none housing: apartment number of children: 3 caffeine: Yes Review of Systems Constitutional Constitutional: Reports fatigue Eyes Eyes: Denies eye discharge, Denies dry eyes, Denies irritation and Denies itchy eyes ENT Ears, Nose, Mouth, and Throat: Denies lip swelling, Denies throat swelling and Reports vertigo *Cardiovascular Cardiovascular: Reports dyspnea and Reports dyspnea on exertion *Respiratory Respiratory: Reports chest congestion, Reports cough, Reports dyspnea, Reports dyspnea on exertion, Denies excessive phlegm production and Reports wheezing *Gastrointestinal Gastrointestinal: Denies abdominal pain, Denies belching and Denies cramping *Musculoskeletal Musculoskeletal: Reports back pain, Reports myalgias and Reports other (No small joint swelling or Pain) *Neurologic Neurologic: Reports confusion and Reports vertigo Psychiatric Psychiatric: Reports confusion Endocrine Endocrine: Reports fatigue and Denies heat intolerance Hematologic/Lymphatic Hematologic/Lymphatic: Denies easy bleeding and Denies lymphadenopathy Allergic/Immunologic Allergic/Immunologic: Denies itchy eyes, Denies lip swelling, Denies throat swelling and Reports wheezing Pulmonology Exam Inpatient Vital signs and Labs for Last 24 Hours: Temp Pulse Resp BP Pulse Ox 97.8 F 79 21 111/59 L 96 07/24/22 08:00 07/24/22 08:00 07/24/22 08:00 07/24/22 08:00 07/24/22 08:00 Laboratory Results - last 24 hr 07/23/22 21:40: SARS-CoV-2 (PCR) Not detected, Influenza A Untype (PCR) Not detected, Influenza Type B (PCR) Not detected 07/23/22 21:40: Specimen Source Right radial, O2 % 2lpm, ABG pH 7.36, ABG pCO2 48.3 H, ABG pO2 106.0 H, ABG HCO3 26.9 H, ABG Total CO2 28.3 H, ABG O2 Saturation 98, ABG Base Excess 1.5, David Test Acceptable 07/23/22 21:50: WBC 7.1, RBC 3.40 L, Hgb 11.1 L, Hct 32.9 L, MCV 96.7 H, MCH 32.5 H, MCHC 33.6, RDW 13.5, Plt Count 316, MPV 7.2 L, Neut % (Auto) 74.1, Lymph % (Auto) 15.4, [place] % (Auto) 6.9, Eos % (Auto) 3.0, Baso % (Auto) 0.6, Neut # (Auto) 5.3, Lymph # (Auto) 1.1, [place] # (Auto) 0.5, Eos # (Auto) 0.2, Baso # (Auto) 0.0 07/23/22 21:50: Sodium 119 L, Potassium 4.0, Chloride 82 L, Carbon Dioxide 34 H, Anion Gap 7.0, BUN 14, Creatinine 0.60 L, Estimated Creat Clear 83, Estimated GFR 134, Est GFR ( Amer) 162, Glucose 111 H, Calcium 8.2 L, Total Bilirubin 0.3, AST 30, ALT 24, Alkaline Ph
--- NOTE | 2022-07-24 09:49 | HMH.PHAINT1 ---
Pharmacy Intervention Comments: Medication reconciliation completed on patient using external fill history and list from PCP office
--- NOTE | 2022-07-24 10:47 | HMH.PTEV ---
Physical Therapy Evaluation Rehab PT IP Evaluation Start: 07/24/22 10:21 Freq: ONCE Status: Active Protocol: Document 07/24/22 10:44 CASSANDRA (Rec: 07/24/22 10:47 CASSANDRA [id number]) Subjective/History History History 71 yowm adm to [facility] with hyponatremia and COPD exac. He reports he lives alone, no steps to enter the home, independent with all mobility at baseline. Has cane for use at home, but I don't ever use it. Uses oxygen via NC at all times at baseline. Subjective Subjective Pt reports no c/o this am except mild, baseline SOA. Rehab PT IP Eval Objective Appearance Patient Behavior Appropriate Patient Orientation Person,Place Difficulty following instructions none Speech Pattern Clear Ambulation Patient Able to Ambulate Yes Ambulation Observation IP General Gait Pattern Observation No Deviations/Normal Ambulation Distance (feet) 30 Ambulation Assistive Device None Ambulation Ability Independent Balance Ability to Arise Able, uses arms to help Sitting Balance Steady, safe Standing Balance Steady, wide stance Dynamic Sitting Balance Ability Good Dynamic Standing Balance Ability Good Transfers Bed Transfer Ability Independent Chair Transfer Ability Independent Sit to Stand Bed Transfer Ability Independent Sit to Stand Chair Transfer Ability Independent ROM All Extremities PT ROM Status WFL MMT All Extremities PT MMT WFL Rehab PT IP prob,goals,plan Problems Date of Evaluation: 07/24/22 Discharge Plan PT Discharge Plan Pt is currently at baseline for all mobility and is appropriate to return home once medically stable. Recommend Home Health Therapy upon d/c. G -code Required No Eval Complexity Eval Charge Codes 88042 - Moderate Complexity PHYSICIAN CERTIFICATION: I certify the specified therapy services for Antwon Cottrell are required, authorized, and reviewed every 30 days.
[2022-07-24 14:16] LABS: Chloride 93 mmol/L (98-107); Potassium 3.9 mmoL/L (3.5-5.1); Sodium 129 mmol/L (136-145)
[2022-07-24 14:19] LABS: Anion Gap 10.9 mEq/L (5-15); Blood Urea Nitrogen 14 mg/dl (9-20); Calcium 8.7 mg/dl (8.4-10.2); Carbon Dioxide 29 mmol/L (22.0-30.0); Creatinine Clearance Estimated 73 mL/min (50-200); Estimated Glomerular Filt Rate 134 ml/min (>60); GFR (African American) 162 ML/MIN (>60); Glucose 202 mg/dl (74-100)
--- NOTE | 2022-07-24 17:16 | PC.NURSE ---
No acute changes noted this shift, patient remains on 3LNC and tolerating well, pulmonology consult completed today, discussed care with daughter who states she does not feel he will want to seek aggressive treatment at this time, alert and oriented x4, lung sounds diminished t/o with scattered wheezes, HR reg, no edema noted, peripheral pulses 2+, denies any cp or soa, vss, bed in lowest position with call light in reach.
[2022-07-24 23:02] LABS: Chloride 91 mmol/L (98-107); Potassium 3.6 mmoL/L (3.5-5.1); Sodium 126 mmol/L (136-145)
[2022-07-24 23:05] LABS: Anion Gap 7.6 mEq/L (5-15); Blood Urea Nitrogen 11 mg/dl (9-20); Carbon Dioxide 31 mmol/L (22.0-30.0); Creatinine Clearance Estimated 73 mL/min (50-200); Estimated Glomerular Filt Rate 165 ml/min (>60); GFR (African American) 199 ML/MIN (>60)
[2022-07-24 23:06] LABS: Calcium 8.7 mg/dl (8.4-10.2); Glucose 87 mg/dl (74-100)
[2022-07-25] VITALS: BP 110/60; PULSE 60; PULSE 62; RESP 16; TEMP 36.4; O2SAT 97
[2022-07-25 04:00] VITALS: BP 122/60; PULSE 64; RESP 18; TEMP 37.1; O2SAT 97; BMI 24.0
[2022-07-25 06:28] VITALS: PULSE 65; PULSE 66; O2SAT 93
[2022-07-25 07:08] LABS: Basophils % 0.1 % (0.1-2.0); Eosinophils % 0.5 % (0.1-12.0); Hematocrit 35.4 % (42.0-52.0); Hemoglobin 11.8 g/dL (14.1-18.0); Lymphocytes # 1.2 K/mm3 (0.7-4.5); Lymphocytes % 26.3 % (10-50); Mean Corpuscular HGB Conc 33.2 g/dL (31.8-35.4); Mean Corpuscular Volume 99.5 fl (80-94); Mean Platelet Volume 7.2 fl (7.4-10.4); Monocytes # 0.4 K/mm3 (0.1-1.0); Monocytes % 8.2 % (1.7-9.3); Neutrophils % 64.9 % (37.0-80.0); Platelet Count 368 K/mm3 (142-424); Red Blood Count 3.56 M/mm3 (4.60-6.20); Red Cell Distribution Width 13.8 % (11.5-17.5); White Blood Count 4.6 K/mm3 (4.8-10.8)
[2022-07-25 07:09] LABS: Chloride 95 mmol/L (98-107); Potassium 3.7 mmoL/L (3.5-5.1); Sodium 132 mmol/L (136-145)
[2022-07-25 07:11] LABS: Blood Urea Nitrogen 9 mg/dl (9-20); Creatinine Clearance Estimated 75 mL/min (50-200); Estimated Glomerular Filt Rate 165 ml/min (>60); GFR (African American) 199 ML/MIN (>60)
[2022-07-25 07:12] LABS: Alanine Aminotransferase 26 U/L (12-78); Albumin Level 4.1 g/dl (3.5-5.0); Albumin/Globulin Ratio 1.4 (1.1-1.8); Alkaline Phosphatase 69 U/L (38-126); Anion Gap 6.7 mEq/L (5-15); Aspartate Amino Transferase 38 U/L (17-59); Bilirubin,Total 0.4 mg/dl (0.2-1.3); Calcium 9.1 mg/dl (8.4-10.2); Carbon Dioxide 34 mmol/L (22.0-30.0); Glucose 113 mg/dl (74-100); Magnesium 1.6 mg/dl (1.6-2.3); Total Protein,Serum 7.1 g/dl (6.3-8.2)
[2022-07-25 07:54] VITALS: BP 135/50; PULSE 76; RESP 19; TEMP 36.6; O2SAT 94
--- NOTE | 2022-07-25 08:00 | EXP.DC.SUM ---
General Admission date:: 07/24/22 Discharge date: 07/25/22 HPI HPI HPI: Mr. Cottrell is a 71-year-old male with a past medical history of Chronic Tobacco Use with a >100 pack year history, COPD on chronic home oxygen therapy and chronic hyponatremia. He presented to [facility] through the ER due to shortness of air outside his normal that occurred a few hours prior to presentation. Daughter was at bedside who helped with information for the history and physical. The patient denies cough, fevers, body aches or chills. The daughter reports that the patient has been slightly confused and complaining of shortness of air. In the ER, the patient underwent a Cxray that showed a subtle opacity in the left lung lobe that was concerning for atelectasis or early pneumonia. Troponin was <0.01. EKG showed atrial fibrillation with rate in the 50's. ABG was unremarkable. Covid and Flu testing were negative. Sodium level was 119. The patient will be admitted with initial impression: Hyponatremia and COPD exacerbation. In the ER the patient received nebulizers and steroids. Hospital Course Hospital Course Hospital Course: 71-year-old male with chronic tobacco use, >100 pack year history, COPD, home oxygen dependent, chronic hyponatremia presents due to shortness of air outside his normal and slight confusion. Noted to have hyponatremia. Admitted for further management. - Hyponatremia Chronic around the 130 range. Treated initially with hypertonic saline given the level of 119 on admission along with slight confusion. Chest imaging obtained showing concern for pulmonary nodules and perihilar lymphadenopathy. Suspicious findings concerning for cancer. Sodium improved to 125 with hypertonic saline. Fluid restricted thereafter with improvement to 130 on morning of discharge. During admission, pulmonology was consulted for further evaluation and management of patient's new pulmonary nodules. Recommend bronchoscopy, will have further discussion as an outpatient. No inpatient procedures planned. Patient corrected at an appropriate rate of 8 to 12 mEq per 24 hours. Appears euvolemic. Concern for SIADH given response to hypertonic saline and response to fluid restriction. Patient would benefit from restricting to less than 2 L of fluid a day at home. Drinks significant amounts of fluid a day per his report. Recommend repeat labs and follow-up with pulmonology. - COPD exacerbation Procalcitonin normal, Covid/Flu negative. Chest imaging with no focal pneumonia. Continue doxycycline 100 mg twice a day for 5 days. Continue prednisone 40 mg orally daily for 5 days. Plan for close follow-up with pulmonology as an outpatient for further management. Sent home with Bhumi and order for nebulizer from [facility]. Patient on baseline oxygen, already established at home. No changes at this time - Anxiety Disorder: Continue home medications as ordered - Essential Tremors: Continue Primidone 50 mg po tid Medically stable for discharge home. Order placed for home health given patient's clinical condition, would benefit from home health PT/OT eval and retirement to assist with medication management. Exam Data for Last 24 hours Vital signs and Labs for Last 24 Hours: Temp Pulse Resp BP Pulse Ox 97.8 F 76 19 135/50 L 94 L 07/25/22 07:54 07/25/22 07:54 07/25/22 07:54 07/25/22 07:54 07/25/22 07:54 Laboratory Results - last 24 hr 07/24/22 14:05: Sodium 129 L, Potassium 3.9, Chloride 93 L, Carbon Dioxide 29, Anion Gap 10.9, BUN 14 D, Creatinine 0.60 L D, Estimated Creat Clear 73, Estimated GFR 134, Est GFR ( Amer) 162 D, Glucose 202 H, Calcium 8.7 07/24/22 22:14: Sodium 126 L, Potassium 3.6, Chloride 91 L, Carbon Dioxide 31 H, Anion Gap 7.6, BUN 11, Creatinine 0.50 L, Estimated Creat Clear 73, Estimated GFR 165, Est GFR ( Amer) 199 D, Glucose 87 D, Calcium 8.7 07/25/22 06:40: WBC 4.6 L D, RBC 3.56 L, Hgb
--- NOTE | 2022-07-25 09:31 | EXP.PULM.PN ---
Subjective *Date: 07/25/22 *Time: 10:44 Interval history: No acute respiratory events overnight. Admits improvement in his respiratory symptoms. Pulmonology Exam Inpatient Vital signs and Labs for Last 24 Hours: Temp Pulse Resp BP Pulse Ox 97.8 F 76 19 135/50 L 94 L 07/25/22 07:54 07/25/22 07:54 07/25/22 07:54 07/25/22 07:54 07/25/22 07:54 Laboratory Results - last 24 hr 07/24/22 14:05: Sodium 129 L, Potassium 3.9, Chloride 93 L, Carbon Dioxide 29, Anion Gap 10.9, BUN 14 D, Creatinine 0.60 L D, Estimated Creat Clear 73, Estimated GFR 134, Est GFR ( Amer) 162 D, Glucose 202 H, Calcium 8.7 07/24/22 22:14: Sodium 126 L, Potassium 3.6, Chloride 91 L, Carbon Dioxide 31 H, Anion Gap 7.6, BUN 11, Creatinine 0.50 L, Estimated Creat Clear 73, Estimated GFR 165, Est GFR ( Amer) 199 D, Glucose 87 D, Calcium 8.7 07/25/22 06:40: WBC 4.6 L D, RBC 3.56 L, Hgb 11.8 L, Hct 35.4 L, MCV 99.5 H, MCH 33.0 H, MCHC 33.2, RDW 13.8, Plt Count 368, MPV 7.2 L, Neut % (Auto) 64.9, Lymph % (Auto) 26.3, [place] % (Auto) 8.2, Eos % (Auto) 0.5, Baso % (Auto) 0.1, Neut # (Auto) 3.0, Lymph # (Auto) 1.2, [place] # (Auto) 0.4, Eos # (Auto) 0.0, Baso # (Auto) 0.0 07/25/22 06:40: Sodium 132 L, Potassium 3.7, Chloride 95 L, Carbon Dioxide 34 H, Anion Gap 6.7, BUN 9, Creatinine 0.50 L, Estimated Creat Clear 75, Estimated GFR 165, Est GFR ( Amer) 199, Glucose 113 H D, Calcium 9.1, Magnesium 1.6, Total Bilirubin 0.4, AST 38 D, ALT 26, Alkaline Phosphatase 69, Total Protein 7.1, Albumin 4.1, Globulin 3.0, Albumin/Globulin Ratio 1.4 I & O for Labs for Last 24 Hours: Intake & Output 07/22/22 07/23/22 07/24/22 07/25/22 23:59 23:59 23:59 23:59 Intake Total 1000 / 1000 960 / 960 800 / 800 Output Total 5050 / 5375 2825 / 2825 Balance 1000 / 1000 -4090 / -4415 -2024 / Weight 185 lb 164 lb 3.91 oz 168 lb 4.8 oz Constitutional: Present mild distress Head: Present normocephalic and atraumatic ENT: Present normal exam, normal oropharynx and mucous membranes moist Neck: Present normal inspection and full ROM Respiratory: Present respiratory distress and able to speak in complete sentences; Absent accessory muscle use, wheezes or crackles Cardiac: Present S1/S2, Tachycardia and radial pulses present GI: Present soft and distention; Absent tenderness or guarding Skin: Present intact; Absent cyanosis or jaundice Neuro: Present alert, awake and oriented x 3 Extremities: Present normal inspection; Absent clubbing or cyanosis Psychiatric: Present normal affect and cooperative Assessment and Plan *Assessment and plan (1) Lung nodule: Status: Acute Category: Medical Code(s): R91.1 - Solitary pulmonary nodule (2) Hilar lymphadenopathy: Status: Acute Category: Medical Code(s): R59.0 - Localized enlarged lymph nodes (3) Mediastinal lymphadenopathy: Status: Acute Category: Medical Code(s): R59.0 - Localized enlarged lymph nodes (4) COPD exacerbation: Status: Acute Category: Medical Code(s): J44.1 - Chronic obstructive pulmonary disease with (acute) exacerbation Plan #Exertional dyspnea: #COPD exacerbation: Current smoker greater than [id number] smoking history. No evidence of leukocytosis. ABG on admission on 2 L did not show any evidence of hypoxic/hypercarbic respiratory failure. pH 7.36 PCO2 48 and PO2 of 106. Hyponatremia with a serum sodium of 125. Mild respiratory distress. Saturating 95% 2 L nasal cannula. Mild expiratory wheeze on auscultation. Received methylprednisolone 120 mg at the ER followed by initiation of prednisone and doxycycline for COPD exacerbation. Interval update: Improving respiratory distress. Saturating 92% above on 2 L nasal cannula. On home oxygen therapy at 2 L. Plan: -Continue supplementation to maintain O2 saturation around 90% able, wean to 2 L this morning. -Continue DuoNebs every 6 hours along with Spiriva scheduled. Patient h
--- NOTE | 2022-07-25 11:13 | HMH.PHAINT1 ---
Pharmacy Intervention Comments: Discussed new/current medications with patient prior to discharge. Patient verbalized understanding and had no questions at this time
[2022-07-25 11:14] LABS: Sodium, Urine 28 mmol/L (Not Estab.)
[2022-07-25 11:32] VITALS: PULSE 77; PULSE 78
--- NOTE | 2022-07-25 11:55 | CARE MANAGER ---
Addendum entered by Nat Darnell RN 07/25/22 12:47: [facility] unable to meet his needs. Spoke with patient's daughter and they were ok with any agency and were agreeable to [facility] Original Note: patient will require nebulizer upon discharge. Patient already uses [facility] for Oxygen, so neb ordered. Home health services were ordered by . They would like to go with [facility] and his information has been sent there and Aimee notified. ELISABETH Brink
[2022-07-26 08:14] LABS: Osmolality, Urine 179 mOsmol/kg (.)
--- NOTE | 2022-07-26 14:32 | CARE MANAGER ---
Spoke with patient's daughter as patient did not answer the phone. She states he was doing ok last night. They got his medications at that time, but were waiting on nebulizer. Contacted [facility] and they delivered. ELISABETH Brink
== END 2022-07-25 12:00 | disposition home health service (06) | DRG 191 ==
LOC: ER 22:31 → 2ND 23:32
PROVIDERS: Internal Medicine Adolescent Medicine; Nurse Practitioner Family; Admitting Provider Family Medicine; Emergency Provider Emergency Medicine; PCP Physician Assistant; Visit Provider Family Medicine
DX: J44.1 Chronic obstructive pulmonary disease with (acute) exacerbation (principal); E87.1 Hypo-osmolality and hyponatremia; E11.9 Type 2 diabetes mellitus without complications; F41.9 Anxiety disorder, unspecified; G25.0 Essential tremor; R91.1 Solitary pulmonary nodule; F17.210 Nicotine dependence, cigarettes, uncomplicated; I10 Essential (primary) hypertension; Z79.899 Other long term (current) drug therapy; Z99.81 Dependence on supplemental oxygen
CPT/HCPCS: 36415; 71045; 71275; 80048; 80053; 81001; 82803; 83605; 83735; 83930; 83935; 84145; 84300; 84436; 84443; 84484; 85025; 87040; 93005; 94640; 94760; 97162; 99285; C9803; J3475; Q9967; U0003; U0005

== ENCOUNTER 2022-10-28 17:50 | Emergency (ER) | payer MEDICARE, MEDICAID, SELFPAY ==
[2022-10-28] VITALS (10 sets, daily range): BP systolic 135–165; BP diastolic 69–89; PULSE 92–104; RESP 22–24; TEMP 36.8–37; O2SAT 93–95; BMI 24.3
--- NOTE | 2022-10-28 17:50 | ECG_ITS ---
APPROVED REPORT Exam: Resting ECG HR:97 bpm ECG Measurements Heart Rate 97 AXES IN 201 P 84 QRSd 98 QRS 115 QT 332 T 78 QTc 387 Conclusion SINUS RHYTHM INCOMPLETE RIGHT BUNDLE BRANCH BLOCK [90+ ms QRS DURATION, TERMINAL R IN V1/V2, 40+ ms S IN I/aVL/V4/V5/V6] POSSIBLE RIGHT VENTRICULAR HYPERTROPHY [SOME/ALL OF: PROMINENT R IN V1, LATE TRANSITION, RAD, GIOVANA, SSS] ABNORMAL ECG UNCONFIRMED REPORT Electronically signed by : Edi Lopez MD 10/29/2022 21:16:37
--- NOTE | 2022-10-28 17:57 | PC.NURSE ---
covid swab sent to lab
--- NOTE | 2022-10-28 17:59 | XR_ITS ---
PROCEDURE INFORMATION: Exam: XR Chest Exam date and time: 10/28/2022 5:57 PM Age: 71 years old Clinical indication: Shortness of breath; Patient HX: Smoker; Additional info: Concern for pneumonia TECHNIQUE: Imaging protocol: Radiologic exam of the chest. Views: 2 views. COMPARISON: CR XR CHEST PORTABLE 07/23/2022 10:46 PM FINDINGS: Lungs: Lungs appear hyperexpanded. There is mild diffuse pulmonary vascular prominence. Nodular opacity in the left upper lobe is partially obscured by telemetry leads. Pleural spaces: Unremarkable. No pleural effusion. No pneumothorax. Heart/Mediastinum: Unremarkable. No cardiomegaly. Bones/joints: Unremarkable. IMPRESSION: Persistent nodular opacity in the left upper lobe as described on prior CT from July. No acute pulmonary infiltrate evident.
[2022-10-28 18:01] LABS: Coronavirus 19, PCR Not Detected (NotDetected); Influenza A, PCR Not Detected (NotDetected); Influenza B, PCR Not Detected (NotDetected)
--- NOTE | 2022-10-28 18:04 | HMH.EDGENADL ---
Discharge Plan Disposition Patient Disposition: Home, Self-Care Condition: Fair Prescriptions Prescriptions: New prednisone 50 mg tablet 50 mg PO DAILY 5 Days Qty: 5 0RF doxycycline hyclate 100 mg tablet 100 mg PO BID 5 Days Qty: 10 0RF No Action primidone 50 mg tablet 100 mg PO TID Label Comments: TAKE TWO TABLETS BY MOUTH THREE TIMES DAILY ipratropium-albuterol 0.5 mg-3 mg(2.5 mg base)/3 mL solution for nebulization 3 ml INHALATION Q6HP PRN (Reason: Breathing Problems) Label Comments: INHALE THE CONTENTS OF 1 VIAL VIA NEBULIZER EVERY 6 HOURS NEEDED FOR SHORTNESS OF BREATH tolterodine 4 mg capsule,extended release 24hr 4 mg PO DAILY Label Comments: TAKE ONE CAPSULE BY MOUTH EVERY DAY lisinopril 20 mg tablet 20 mg PO DAILY Label Comments: TAKE ONE TABLET BY MOUTH EVERY DAY tramadol 50 mg tablet 50 mg PO BID Label Comments: TAKE ONE TABLET BY MOUTH TWICE DAILY FOR PAIN MAY CAUSE DROWSINESS lorazepam 0.5 mg tablet 0.5 mg PO BID Label Comments: TAKE ONE TABLET BY MOUTH TWICE DAILY FOR ANXIETY MAY CAUSE DROWSINESS terazosin 2 mg capsule 2 mg PO DAILY Label Comments: TAKE ONE CAPSULE BY MOUTH EVERY DAY pravastatin 20 mg tablet 20 mg PO DAILY Label Comments: TAKE ONE TABLET BY MOUTH ONCE DAILY albuterol sulfate [Ventolin HFA] 90 mcg/actuation HFA aerosol inhaler 2 inh INHALATION Q6HP PRN (Reason: Breathing Problems) Label Comments: INHALE TWO PUFFS BY MOUTH EVERY 6 HOURS NEEDED paroxetine HCl 40 mg tablet 40 mg PO DAILY Label Comments: TAKE ONE TABLET BY MOUTH EVERY DAY FOR depression risperidone 0.5 mg tablet 0.5 mg PO BID Label Comments: TAKE ONE TABLET BY MOUTH TWICE DAILY dutasteride 0.5 mg capsule 0.5 mg PO DAILY Label Comments: TAKE ONE CAPSULE BY MOUTH EVERY DAY metoprolol tartrate 25 mg tablet 12.5 mg PO BID Label Comments: TAKE 1/2 TABLET BY MOUTH TWICE DAILY FOR BLOOD PRESSURE pregabalin 50 mg capsule 50 mg PO TID Label Comments: TAKE ONE CAPSULE BY MOUTH THREE TIMES DAILY FOR PAIN MAY CAUSE DROWSINESS fenofibrate nanocrystallized 145 mg tablet 145 mg PO DAILY Label Comments: TAKE ONE TABLET BY MOUTH EVERY DAY Enbrel SureClick 50 mg/mL (1 mL) pen injector 50 mg SQ WEEKLY Label Comments: INJECT THE CONTENTS OF 1 AUTOINJECTOR SUBCUTANEOUSLY ONCE A WEEK Spiriva Respimat 2.5 mcg/actuation mist 2 inh INHALATION DAILY Label Comments: INHALE 2 PUFFS BY MOUTH EVERY DAY Anthony De Pazta 200-62.5-25 mcg blister with device 1 inh INHALATION DAILY Label Comments: INHALE 1 PUFF BY MOUTH EVERY DAY --RINSE MOUTH AFTER USE-- Referrals Follow up/Referrals: Ivis Villegas PA [Primary Care Provider] - See instructions Clinical Impressions Clinical Impression: COPD exacerbation Instructions Patient Instructions: DI for Chronic Obstructive Pulmonary Disease Exacerbations Discharge ED Provider: Robel Ledesma General Adult HPI General Chief complaint: Shortness of Breath/Dyspnea Stated complaint: soa Time Seen by Provider: 10/28/22 18:05 Mode of Arrival: EMS Source of Information: EMS Limitations: No Limitations Description of Symptoms (Recalled from ER Triage Doc. by RN): 71 M presents from home via EMS after his daughter called out for increased work of breathing. Patient has history of COPD and wears 2L/NC daily. He still smokes 1.5-2 ppd. Daughter reports his last CT scan of his chest showed a mass which he did not want further investigation for. Patient receieved a breathing treatment in route which he states helped him. He remins tachypenic and tachycardic, but NAD. History of Present Illness HPI narrative: Patient is a 71-year-old male with past medical history of COPD, hypertension, diabetes who presents with concern for increased work of breathing
[2022-10-28 18:20] LABS: Alanine Aminotransferase 30 U/L (12-78); Albumin/Globulin Ratio 1.3 (1.1-1.8); Alkaline Phosphatase 69 U/L (38-126); Anion Gap 13.6 mEq/L (5-15); Aspartate Amino Transferase 40 U/L (17-59); Bilirubin,Total 0.2 mg/dl (0.2-1.3); Blood Urea Nitrogen 13 mg/dl (9-20); Calcium 8.7 mg/dl (8.4-10.2); Carbon Dioxide 32 mmol/L (22.0-30.0); Chloride 84 mmol/L (98-107); Creatinine Clearance Estimated 74 mL/min (50-200); Estimated Glomerular Filt Rate 165 ml/min (>60); GFR (African American) 199 ML/MIN (>60); Glucose 139 mg/dl (74-100); Potassium 3.6 mmoL/L (3.5-5.1); Sodium 126 mmol/L (136-145)
[2022-10-28 18:25] LABS: C-Reactive Protein 11.6 mg/L (0-4)
[2022-10-28 18:26] LABS: VBG Base Excess 2.9 mmol/L (-2.4-2.3); VBG HCO3 28.3 mmol/L (23-30); VBG Oxygen Saturation 96.6 % (50-70); VBG PCO2 50.6 mmol/L (35-51); VBG PH 7.37 mmol/L (7.31-7.41); VBG PO2 88.6 mmol/L (28-40); VBG Total CO2 29.8 mmol/L (23-27)
[2022-10-28 18:33] LABS: Basophils % 0.5 % (0.1-2.0); Eosinophils # 0.2 K/mm3 (0.0-0.4); Eosinophils % 3.2 % (0.1-12.0); Hematocrit 35.2 % (42.0-52.0); Hemoglobin 11.5 g/dL (14.1-18.0); Lymphocytes % 16.1 % (10-50); Mean Corpuscular HGB Conc 32.8 g/dL (31.8-35.4); Mean Corpuscular Hemoglobin 32.1 pg (27.0-31.2); Mean Corpuscular Volume 97.9 fl (80-94); Mean Platelet Volume 7.4 fl (7.4-10.4); Monocytes # 0.5 K/mm3 (0.1-1.0); Monocytes % 7.5 % (1.7-9.3); Neutrophils # 4.5 K/mm3 (1.8-7.8); Neutrophils % 72.8 % (37.0-80.0); Platelet Count 350 K/mm3 (142-424); Red Blood Count 3.59 M/mm3 (4.60-6.20); Red Cell Distribution Width 13.1 % (11.5-17.5); White Blood Count 6.2 K/mm3 (4.8-10.8)
[2022-10-28 18:38] LABS: Procalcitonin 0.051 ng/mL (0.0-2.0)
--- NOTE | 2022-10-28 18:51 | PC.NURSE ---
rounded on pt nothing needed at this time,visitor at bedside
--- NOTE | 2022-10-28 18:52 | PC.NURSE ---
Attempted to call report. Nurse asked to give to corporate staff accountant instead. Will pass this patient to corporate staff accountant to call report when 2nd floor available
--- NOTE | 2022-10-28 19:21 | PC.NURSE ---
Dr. Ledesma at BS
--- NOTE | 2022-10-28 19:29 | PC.NURSE ---
Pt gone to RAD via wheelchair
[2022-10-28 19:32] LABS: Microscopic, Urine URINE MICROSCOPIC (MICROSCOPIC)
[2022-10-28 19:38] LABS: Appearance,Urine CLEAR (Clear); Bilirubin,Urine Negative (Negative); Blood, Urine TRACE-I (Negative); Color,Urine STRAW (Yellow); Glucose,Urine (UA) Negative (Negative); Ketones,Urine Negative (Negative); Leukocyte Esterase,Urine Negative (Negative); Nitrate,Urine Negative (Negative); PH,Urine 6.5 (5.0-8.5); Protein,Urine Negative (Negative)
[2022-10-28 20:06] LABS: RBC,Urine Occasional #/hpf (0-3); Squamous Epithelial Cell,Urine Occasional #/hpf (0-5)
--- NOTE | 2022-10-28 20:26 | PC.NURSE ---
2nd IV ABX Doxycycline began at this time. Pt assisted with urinal.
== END 2022-10-28 21:49 | disposition home or self-care (01) ==
PROVIDERS: Emergency Provider Student in an Organized Health Care Education/Training Program; PCP Physician Assistant
DX: J44.1 Chronic obstructive pulmonary disease with (acute) exacerbation (principal); F17.210 Nicotine dependence, cigarettes, uncomplicated; Z20.822 Contact with and (suspected) exposure to COVID-19; I10 Essential (primary) hypertension; Z79.899 Other long term (current) drug therapy
CPT/HCPCS: 71046; 80053; 81001; 82803; 84145; 85025; 86140; 87040; 87635; 87636; 93005; 96361; 96365; 96375; 99285; C9803; J0696; J3475; U0003; U0005

== ENCOUNTER → 2022-12-28 09:51 | Outpatient (CLI) | payer OTHER, MEDICARE, MEDICAID, SELFPAY | PROVIDERS: PCP Emergency Medicine; Visit Provider Internal Medicine Pulmonary Disease | DX: R06.02 Shortness of breath (principal); Z01.818 Encounter for other preprocedural examination | CPT/HCPCS: 93306; 94010 ==

== ENCOUNTER 2023-02-22 17:57 | Inpatient (IN) | payer OTHER, MEDICARE, MEDICAID, SELFPAY ==
[2023-02-22] VITALS (12 sets, daily range): BP systolic 149–169; BP diastolic 71–99; PULSE 62–88; RESP 16–23; TEMP 36.8; O2SAT 85–93; BMI 24.3
--- NOTE | 2023-02-22 18:03 | ECG_ITS ---
APPROVED REPORT Exam: Resting ECG HR:80 bpm ECG Measurements Heart Rate 80 AXES MS 183 P 68 QRSd 100 QRS 109 QT 371 T 73 QTc 406 Conclusion SINUS RHYTHM RIGHT AXIS DEVIATION [QRS AXIS > 100] ABNORMAL ECG UNCONFIRMED REPORT Electronically signed by : Edi Lopez MD 02/23/2023 06:48:11
--- NOTE | 2023-02-22 18:49 | XR_ITS ---
PROCEDURE INFORMATION: Exam: XR Chest Exam date and time: 02/22/2023 7:01 PM Age: 72 years old Clinical indication: Shortness of breath; Additional info: Shortness of air TECHNIQUE: Imaging protocol: Radiologic exam of the chest. Views: 1 view. COMPARISON: CR XR CHEST 2V 10/28/2022 5:57 PM FINDINGS: Lungs: Hyperlucent changes are demonstrated. Increase in the lung volumes is demonstrated. Pleural spaces: Unremarkable. No pleural effusion. No pneumothorax. Heart/Mediastinum: Unremarkable. No cardiomegaly. Vasculature: Prominence of the aortic arch. This may be positional. Diaphragm: There is flattening of the hemidiaphragms. Bones/joints: Poorly defined nodular density measuring approximately 10 mm superimposed upon the anterior 2nd left rib. Findings demonstrated on CT thorax dated 07/24/2022. Interpretation at that time concerning for malignancy. Chronic posttraumatic deformity right clavicle. This was described on the CT thorax dated 07/24/2022 branching soft tissue attenuating lesion left upper lobe concerning for malignancy. IMPRESSION: 1. Poorly defined nodular density measuring approximately 10 mm superimposed upon the anterior 2nd left rib. Findings demonstrated on CT thorax dated 07/24/2022. Interpretation at that time concerning for malignancy. Associated suspicious mediastinal and AP window adenopathy demonstrated. Recommend follow-up CT and histologic evaluation. 2. Chronic obstructive pulmonary disease.
[2023-02-22 19:04] LABS: Basophils % 0.3 % (0.1-2.0); Eosinophils % 0.1 % (0.1-12.0); Hematocrit 37.8 % (42.0-52.0); Hemoglobin 12.1 g/dL (14.1-18.0); Lymphocytes # 0.5 K/mm3 (0.7-4.5); Lymphocytes % 8.2 % (10-50); Mean Corpuscular HGB Conc 31.9 g/dL (31.8-35.4); Mean Corpuscular Hemoglobin 31.7 pg (27.0-31.2); Mean Corpuscular Volume 99.1 fl (80-94); Mean Platelet Volume 7.8 fl (7.4-10.4); Monocytes # 0.4 K/mm3 (0.1-1.0); Monocytes % 7.7 % (1.7-9.3); Neutrophils # 4.5 K/mm3 (1.8-7.8); Neutrophils % 83.6 % (37.0-80.0); Platelet Count 235 K/mm3 (142-424); Red Blood Count 3.81 M/mm3 (4.60-6.20); Red Cell Distribution Width 13.3 % (11.5-17.5); White Blood Count 5.4 K/mm3 (4.8-10.8)
[2023-02-22 19:08] LABS: Alanine Aminotransferase 38 U/L (12-78); Albumin/Globulin Ratio 1.3 (1.1-1.8); Alkaline Phosphatase 78 U/L (38-126); Anion Gap 11.6 mEq/L (5-15); Aspartate Amino Transferase 50 U/L (17-59); Bilirubin,Total 0.3 mg/dl (0.2-1.3); Blood Urea Nitrogen 9 mg/dl (9-20); Calcium 8.9 mg/dl (8.4-10.2); Carbon Dioxide 32 mmol/L (22.0-30.0); Chloride 82 mmol/L (98-107); Creatinine Clearance Estimated 71 mL/min (50-200); Estimated Glomerular Filt Rate 213 ml/min (>60); GFR (African American) 257 ML/MIN (>60); Globulin 3.1 g/dL (1.3-3.2); Glucose 104 mg/dl (74-100); Potassium 3.6 mmoL/L (3.5-5.1); Sodium 122 mmol/L (136-145); Total Protein,Serum 7.1 g/dl (6.3-8.2)
[2023-02-22 19:18] LABS: NT Pro Brain Natriuretic Pep. 289 pg/mL (0-125)
[2023-02-22 19:52] LABS: Lactic Acid 0.7 mmol/L (0.7-2.1)
[2023-02-22 20:04] LABS: Microscopic, Urine URINE MICROSCOPIC (MICROSCOPIC)
[2023-02-22 20:06] LABS: Appearance,Urine CLEAR (Clear); Bilirubin,Urine Negative (Negative); Blood, Urine Negative (Negative); Color,Urine YELLOW (Yellow); Glucose,Urine (UA) Negative (Negative); Ketones,Urine Negative (Negative); Leukocyte Esterase,Urine Negative (Negative); Nitrate,Urine Negative (Negative); Protein,Urine TRACE (Negative); Specific Gravity, Urine 1.025 (1.005-1.030)
[2023-02-22 20:14] LABS: Bacteria,Urine Trace /lpf; WBC,Urine Occasional #/hpf (0-3)
--- NOTE | 2023-02-22 20:41 | PC.NURSE ---
in room talking with patient at this time.
[2023-02-22 21:41] LABS: VBG Base Excess 6.3 mmol/L (-2.4-2.3); VBG Oxygen Saturation 99.5 % (50-70); VBG PCO2 60.9 mmol/L (35-51); VBG PH 7.34 mmol/L (7.31-7.41); VBG PO2 182.1 mmol/L (28-40); VBG Total CO2 33.9 mmol/L (23-27)
--- NOTE | 2023-02-22 22:55 | HMH.EDGENADL ---
Discharge Plan Disposition Patient Disposition: Admitted Clinical Impressions Clinical Impression: COPD (chronic obstructive pulmonary disease) Discharge ED Provider: Samm Reece Adult HPI General Chief complaint: Shortness of Breath/Dyspnea Stated complaint: SOA Time Seen by Provider: 02/22/23 20:03 Mode of Arrival: EMS Source of Information: Patient Limitations: Physical Limitations Description of Symptoms (Recalled from ER Triage Doc. by RN): Patient arrives via ems with c/o soa. Patient has known copd and wears 2l of oxygen at home. Pt states that he has had multiple duoneb treatments at home but they have not helped. Denies fever or body aches. History of Present Illness HPI narrative: Patient presents for evaluation of shortness of breath, gradual in onset starting today, constant, worsening in course, previous therapies include home DuoNebs. Patient denies any cough other than chronic cough productive of clear sputum. No fevers or chills or nausea or vomiting or chest pain or palpitations or headache or abdominal pain or dysuria or frequency or back pain. No leg pain or leg swelling. No personal history of DVT or PE. Denies any sick contacts and denies any recent travel. States he has had similar episodes before in the setting of COPD. Has baseline home 2 L nasal cannula oxygen requirement. History is limited secondary to acuity of patient's condition as well as dyspnea. Related Data Home Medications Medication Instructions Recorded Confirmed albuterol sulfate 90 mcg/actuation 2 inh inhalation Q6HP PRN 10/28/22 02/23/23 aerosol inhaler (Ventolin HFA) Breathing Problems dutasteride 0.5 mg capsule 0.5 mg PO HS prostate 10/28/22 02/23/23 etanercept 50 mg/mL (1 mL) 50 mg SQ WEEKLY Rheumatoid 10/28/22 02/23/23 subcutaneous pen injector (Enbrel arthritis Sureick) lisinopril 20 mg tablet 20 mg PO DAILY High blood pressure 10/28/22 02/23/23 paroxetine HCl 40 mg tablet 40 mg PO DAILY Depression 10/28/22 02/23/23 pregabalin 50 mg capsule 50 mg PO TID Pain 10/28/22 02/23/23 terazosin 2 mg capsule 2 mg PO HS High blood pressure 10/28/22 02/23/23 tolterodine 4 mg capsule,extended 4 mg PO DAILY overactive bladder 10/28/22 02/23/23 release 24 hr tramadol 50 mg tablet 50 mg PO BID Pain 10/28/22 02/23/23 aspirin 81 mg tablet,delayed 81 mg PO DAILY Heart Disease 02/23/23 02/23/23 release docusate sodium 100 mg capsule 100 mg PO BID Constipation 02/23/23 02/23/23 fenofibrate nanocrystallized 145 145 mg PO HS Cholesterol 02/23/23 02/23/23 mg tablet lorazepam 0.5 mg tablet 0.5 mg PO BID Anxiety 02/23/23 02/23/23 multivitamin 1 tab PO DAILY Supplement 02/23/23 02/23/23 pravastatin 20 mg tablet 20 mg PO HS Cholesterol 02/23/23 02/23/23 primidone 50 mg tablet 100 mg PO TID tremors 02/23/23 02/23/23 risperidone 0.5 mg tablet 0.5 mg PO BID tremors 02/23/23 02/23/23 Previous Rx's Medication Instructions Recorded metoprolol tartrate 25 mg tablet 12.5 mg PO BID High blood pressure 12/19/22 #30 tabs Allergies Allergy/AdvReac Type Severity Reaction Status Date / Time Penicillins Allergy Unknown Verified 01/15/23 13:03 allergy reaction tetanus and diphtheria Allergy Unknown Verified 01/15/23 13:03 toxoids allergy reaction [facility] Disclaimer: The information contained in this section may have been updated after the patient was seen, as this information can be updated by other users. Medical History Acute and chronic respiratory failure Atypical chest pain Chronic respiratory failure with hypoxia COPD (chronic obstructive pulmonary disease) COPD mixed type Coronary artery abnormality Anatomical kink D1. Dyspnea on exertion Erosive osteoarthritis of multiple sites Hilar lymphadenopathy Hilar lymphadenopathy Hyperlipidemia Hypertension Lung mass Lung nodule Lung nodule Mediastinal lymphadenopathy Mood disorder
[2023-02-23] VITALS (27 sets, daily range): BP systolic 140–172; BP diastolic 75–101; PULSE 65–108; RESP 18–30; TEMP 36.4–37.2; O2SAT 84–100; BMI 22.0
[2023-02-23 00:17] LABS: Troponin I < 0.01 ng/ml (0.00-0.034)
--- NOTE | 2023-02-23 00:23 | PC.NURSE ---
on phone with daughter Padmaja Stewart,
--- NOTE | 2023-02-23 00:30 | PC.NURSE ---
Admissions notified of Hospitalist admission, MIP, room 212
--- NOTE | 2023-02-23 00:35 | EXP.HP ---
History of Present Illness *Admission Date: 02/23/23 *Reason for visit:: SOB *History of present illness: This is a 72-year-old male with extensive past medical history including but not limited to COPD mixed type, lung nodule with hilar lymphadenopathy, hypertension, diabetes, chronic hyponatremia, tobacco abuse, heavy smoker in the past was on hospice care. Patient was brought to the ER by EMS to the concerning of increased shortness of breath. Patient is currently on home oxygen 2 L. He was desatting. Patient denies any fever, nauseaand vomiting. Nothing that he tried at home made him feel better. Patient decided to come to the ER. Admitted for further work-up. [facility] Disclaimer: The information contained in this section may have been updated after the patient was seen, as this information can be updated by other users. Medical History Acute and chronic respiratory failure Atypical chest pain Chronic respiratory failure with hypoxia COPD (chronic obstructive pulmonary disease) COPD mixed type Coronary artery abnormality Anatomical kink D1. Dyspnea on exertion Erosive osteoarthritis of multiple sites Hilar lymphadenopathy Hilar lymphadenopathy Hyperlipidemia Hypertension Lung mass Lung nodule Lung nodule Mediastinal lymphadenopathy Mood disorder Normal coronary arteries APR 2020 Pericardial effusion Pre-operative clearance Psoriasis Respiratory failure with hypoxia Type 2 diabetes mellitus Surgical History No history of previous surgery Family History Other Cancer Diabetes Social History (Updated 02/23/23 @ 03:00 by Radha Gallo RN) Smoking Status: Current every day smoker tobacco type: cigarettes packs per day: 3 alcohol intake: never substance use type: denies use current occupational status: retired Travel in the last 8 weeks: None household members: none housing: apartment number of children: 3 caffeine: Yes Review of Systems Review of Systems Review of systems:: pertinent systems reviewed and negative unless documented below Meds Home Medications and Allergies Home Medications Medication Instructions Recorded Confirmed Type albuterol sulfate 90 mcg/actuation 2 inh inhalation Q6HP PRN 10/28/22 02/23/23 History aerosol inhaler (Ventolin HFA) Breathing Problems dutasteride 0.5 mg capsule 0.5 mg PO HS prostate 10/28/22 02/23/23 History etanercept 50 mg/mL (1 mL) 50 mg SQ WEEKLY Rheumatoid 10/28/22 02/23/23 History subcutaneous pen injector (Enbrel arthritis SureClick) lisinopril 20 mg tablet 20 mg PO DAILY High blood pressure 10/28/22 02/23/23 History paroxetine HCl 40 mg tablet 40 mg PO DAILY Depression 10/28/22 02/23/23 History pregabalin 50 mg capsule 50 mg PO TID Pain 10/28/22 02/23/23 History terazosin 2 mg capsule 2 mg PO HS High blood pressure 10/28/22 02/23/23 History tolterodine 4 mg capsule,extended 4 mg PO DAILY overactive bladder 10/28/22 02/23/23 History release 24 hr tramadol 50 mg tablet 50 mg PO BID Pain 10/28/22 02/23/23 History metoprolol tartrate 25 mg tablet 12.5 mg PO BID High blood pressure 12/19/22 02/23/23 Rx #30 tabs aspirin 81 mg tablet,delayed 81 mg PO DAILY Heart Disease 02/23/23 02/23/23 History release docusate sodium 100 mg capsule 100 mg PO BID Constipation 02/23/23 02/23/23 History fenofibrate nanocrystallized 145 145 mg PO HS Cholesterol 02/23/23 02/23/23 History mg tablet lorazepam 0.5 mg tablet 0.5 mg PO BID Anxiety 02/23/23 02/23/23 History multivitamin 1 tab PO DAILY Supplement 02/23/23 02/23/23 History pravastatin 20 mg tablet 20 mg PO HS Cholesterol 02/23/23 02/23/23 History primidone 50 mg tablet 100 mg PO TID tremors 02/23/23 02/23/23 History risperidone 0.5 mg tablet 0.5 mg PO BID tremors 02/23/23 02/23/23 History New Pres
--- NOTE | 2023-02-23 01:55 | PC.NURSE ---
Patient arrived to floor via stretcher at 01:52.
[2023-02-23 03:53] LABS: Troponin I < 0.01 ng/ml (0.00-0.034)
[2023-02-23 06:13] LABS: ABG Base Excess 6.1 mmol/L (-2.4-2.3); ABG HCO3 30.3 mmhg (22.0-26.0); ABG Oxygen Saturation 97 % (90-100); ABG PCO2 46.3 mmhg (35.0-45.0); ABG PH 7.43 mmol/L (7.35-7.45); ABG PO2 90.9 mmhg (80-100); ABG TCO2 31.7 mmhg (23-27)
[2023-02-23 06:15] LABS: Allen's Test Acceptable; Source Right Radial; Vent Rate 18
[2023-02-23 07:35] LABS: Basophils % 0.1 % (0.1-2.0); Eosinophils % 0.1 % (0.1-12.0); Hematocrit 37.1 % (42.0-52.0); Lymphocytes # 0.6 K/mm3 (0.7-4.5); Lymphocytes % 16.2 % (10-50); Mean Corpuscular HGB Conc 32.3 g/dL (31.8-35.4); Mean Corpuscular Hemoglobin 32.1 pg (27.0-31.2); Mean Corpuscular Volume 99.4 fl (80-94); Mean Platelet Volume 7.8 fl (7.4-10.4); Monocytes # 0.4 K/mm3 (0.1-1.0); Monocytes % 11.1 % (1.7-9.3); Neutrophils # 2.5 K/mm3 (1.8-7.8); Neutrophils % 72.5 % (37.0-80.0); Platelet Count 224 K/mm3 (142-424); Red Blood Count 3.73 M/mm3 (4.60-6.20); Red Cell Distribution Width 13.3 % (11.5-17.5); White Blood Count 3.4 K/mm3 (4.8-10.8)
[2023-02-23 07:39] LABS: Alanine Aminotransferase 43 U/L (12-78); Albumin/Globulin Ratio 1.3 (1.1-1.8); Alkaline Phosphatase 74 U/L (38-126); Anion Gap 10.3 mEq/L (5-15); Aspartate Amino Transferase 51 U/L (17-59); Bilirubin,Total 0.2 mg/dl (0.2-1.3); Blood Urea Nitrogen 9 mg/dl (9-20); Calcium 8.5 mg/dl (8.4-10.2); Carbon Dioxide 36 mmol/L (22.0-30.0); Chloride 81 mmol/L (98-107); Creatinine Clearance Estimated 64 mL/min (50-200); Estimated Glomerular Filt Rate 213 ml/min (>60); GFR (African American) 257 ML/MIN (>60); Globulin 3.2 g/dL (1.3-3.2); Glucose 103 mg/dl (74-100); Magnesium 1.4 mg/dl (1.6-2.3); Phosphorous 3.8 mg/dl (2.5-4.5); Potassium 3.3 mmoL/L (3.5-5.1); Sodium 124 mmol/L (136-145); Total Protein,Serum 7.2 g/dl (6.3-8.2)
[2023-02-23 07:57] LABS: Troponin I < 0.01 ng/ml (0.00-0.034)
[2023-02-23 08:11] LABS: Adenovirus,PCR Not Detected (NotDetected); Bordetella Pertussis Not Detected (NotDetected); Chlamydophila Pneumoniae, PCR Not Detected (NotDetected); Coronavirus 229E Not Detected (NotDetected); Coronavirus NL63 Not Detected (NotDetected); Coronavirus OC43 Not Detected (NotDetected); Coronovirus HKU1,PCR Not Detected (NotDetected); Human Metapneumovirus Not Detected (NotDetected); Influenza A, PCR Not Detected (NotDetected); Influenza AH1, 2009 Not Detected (NotDetected); Influenza AH1, PCR Not Detected (NotDetected); Influenza AH3,PCR Not Detected (NotDetected); Influenza B, PCR Not Detected (NotDetected); Mycoplasma Pneumoniae, PCR Not Detected (NotDetected); Parainfluenza 1, PCR Not Detected (NotDetected); Parainfluenza 2, PCR Not Detected (NotDetected); Parainfluenza 3, PCR Not Detected (NotDetected); Parainfluenza 4, PCR Not Detected (NotDetected); Respiratory Syncytial Virus Not Detected (NotDetected); Rhinovirus/Enterovirus Not Detected (NotDetected)
--- NOTE | 2023-02-23 09:38 | HMH.PHAINT1 ---
Pharmacy Intervention Comments: home medication list verified using list from outpatient pharmacy
[2023-02-23 10:45] LABS: Coronavirus 19, PCR Detected (NotDetected)
[2023-02-23 11:57] LABS: POC Glucose,Bedside 121 (70-110)
--- NOTE | 2023-02-23 11:58 | PC.NURSE ---
0820 pt o2 sats noted to be 100 on 6 lpm. o2 decreased to 3lpm. notified MD and Respiratory. 0930 new face to face orders from Dr Palmer: transfer pt out of stepdown, pinky hawkins, ambulate pt as tolerated, continue to wean o2 [address] Palmer face to face: ross was dc at 1000. pt ambulated to door of room and back to window. pt is currently up to chair. pt was noted to be dyspneic and struggling. pt noted to be breathing through mouth. pt was coached through deep breathing in through his nose and out through his mouth. pt was able to calm down and sats improved within 5 mins. 1050 notified by md that pt is Covid positive. pt placed in airborne and contact precautions. pt notified of diagnosis as well as pt daughter/ROBERT Ruth.
[2023-02-23 17:10] LABS: POC Glucose,Bedside 101 (70-110)
--- NOTE | 2023-02-23 18:11 | PC.NURSE ---
Pt has rested in his room this shift. he was able to ambulate earlier this am but has since rested. pt lung sounds continue to have coarse rhonchi scattered with wheezes throughout. bowel sounds are active. pt was noted to have scratched his nose following am assessment and now has scab to bridge of nose. pt daughter in room visiting at this time. nad noted.
[2023-02-23 18:50] LABS: Chloride 87 mmol/L (98-107); Potassium 3.4 mmoL/L (3.5-5.1); Sodium 127 mmol/L (136-145)
[2023-02-23 18:53] LABS: Anion Gap 9.4 mEq/L (5-15); Blood Urea Nitrogen 13 mg/dl (9-20); Carbon Dioxide 34 mmol/L (22.0-30.0); Creatinine Clearance Estimated 64 mL/min (50-200); Estimated Glomerular Filt Rate 164 ml/min (>60); GFR (African American) 199 ML/MIN (>60); Glucose 93 mg/dl (74-100)
[2023-02-24] VITALS (17 sets, daily range): BP systolic 101–160; BP diastolic 48–90; PULSE 60–113; RESP 16–20; TEMP 36.6–37.1; O2SAT 87–97; BMI 21.5
--- NOTE | 2023-02-24 06:29 | PC.NURSE ---
@ 0610 THIS RN BLADDER SCANNED THIS PT D/T HAVING S/S OF URINARY RETENTION -BLADDER SCAN GREATER THAN 647ML @ 0612 THIS RN NOTIFIED DISPUTE RESOLUTION ANALYST OF RESULT AND GOT AN ORDER TO ANCHOR WEEKS CATHETER -WEEKS CATHETER INSERTED BY THIS RN, PT TOLERATED WELL, AND PT HAD 750ML OF URINARY O/P IMMEDIATELY, UA SENT PER PROTOCOL
[2023-02-24 06:34] LABS: Appearance,Urine CLEAR (Clear); Bilirubin,Urine Negative (Negative); Blood, Urine TRACE-I (Negative); Color,Urine YELLOW (Yellow); Glucose,Urine (UA) Negative (Negative); Ketones,Urine Negative (Negative); Leukocyte Esterase,Urine Negative (Negative); Microscopic, Urine URINE MICROSCOPIC (MICROSCOPIC); Nitrate,Urine Negative (Negative); Protein,Urine Negative (Negative); Specific Gravity, Urine 1.025 (1.005-1.030)
[2023-02-24 06:49] LABS: Bacteria,Urine Trace /lpf; Squamous Epithelial Cell,Urine Occasional #/hpf (0-5); WBC,Urine Occasional #/hpf (0-3)
--- NOTE | 2023-02-24 07:05 | PC.NURSE ---
PT SATS DROPPING WHILE EATING BREAKFAST; THIS RN INCREASED O2 FROM 3L NC TO 5L NC; RT NOTIFIED OF CHANGE AND WILL TITRATE BACK DOWN AFTER PT FINISHES BREAKFAST
[2023-02-24 07:50] LABS: Basophils % 0.2 % (0.1-2.0); Hematocrit 34.9 % (42.0-52.0); Hemoglobin 11.4 g/dL (14.1-18.0); Lymphocytes # 0.5 K/mm3 (0.7-4.5); Mean Corpuscular HGB Conc 32.5 g/dL (31.8-35.4); Mean Corpuscular Hemoglobin 32.6 pg (27.0-31.2); Mean Corpuscular Volume 100.3 fl (80-94); Mean Platelet Volume 7.9 fl (7.4-10.4); Monocytes # 0.5 K/mm3 (0.1-1.0); Monocytes % 9.4 % (1.7-9.3); Neutrophils # 4.6 K/mm3 (1.8-7.8); Neutrophils % 82.3 % (37.0-80.0); Platelet Count 233 K/mm3 (142-424); Red Blood Count 3.49 M/mm3 (4.60-6.20); Red Cell Distribution Width 13.5 % (11.5-17.5); White Blood Count 5.6 K/mm3 (4.8-10.8)
[2023-02-24 08:00] LABS: Alanine Aminotransferase 43 U/L (12-78); Albumin Level 3.5 g/dl (3.5-5.0); Albumin/Globulin Ratio 1.1 (1.1-1.8); Alkaline Phosphatase 70 U/L (38-126); Anion Gap 9.2 mEq/L (5-15); Aspartate Amino Transferase 54 U/L (17-59); Bilirubin,Total 0.3 mg/dl (0.2-1.3); Blood Urea Nitrogen 9 mg/dl (9-20); Calcium 8.6 mg/dl (8.4-10.2); Carbon Dioxide 34 mmol/L (22.0-30.0); Chloride 86 mmol/L (98-107); Creatinine Clearance Estimated 63 mL/min (50-200); Estimated Glomerular Filt Rate 213 ml/min (>60); GFR (African American) 257 ML/MIN (>60); Globulin 3.1 g/dL (1.3-3.2); Glucose 79 mg/dl (74-100); Magnesium 1.4 mg/dl (1.6-2.3); Potassium 3.2 mmoL/L (3.5-5.1); Sodium 126 mmol/L (136-145); Total Protein,Serum 6.6 g/dl (6.3-8.2)
--- NOTE | 2023-02-24 09:32 | HMH.PTEV ---
Physical Therapy Evaluation Rehab PT IP Evaluation Start: 02/23/23 10:44 Freq: ONCE Status: Active Protocol: Document 02/24/23 09:13 STEPHANIE (Rec: 02/24/23 09:32 STEPHANIE [id number]) Subjective/History History History Pt is a 72 year old male that presented to [facility] ED via EMS due to increasing shortness of breath. Pt has a PMH significant for COPD mixed type, lung nodule with hilar lymphadenopathy, hypertension, diabetes, chronic hyponatremia, tobacco abuse, heavy smoker in the past and was on hospice care at home. Pt was on 2L O2 via nasal cannula at baseline. Pt was desatting and nothing that he tried at home helped. Pt was admitted for further workup and IP management. Pt lives at home alone in a [facility] with a ramp to enter. Pt has 2 daughters at home that assist him with cooking, cleaning and transportation to doctors appointments. Pt states that hospice care assists him with taking a shower. Pt reports that he uses a cane for ambulation but also has a walker and a wheelchair at home. Subjective Subjective Pt presents in semi-fowlers position in bed, pleasant and agreeable to PT initial evaluation. Pt requesting to use the restroom. Pt denies reports of pain at rest. Pt on 3L O2 via nasal cannula Pt performed supine to sit on EOB transfer with min A x1. Pt performed sit to stand step transfer to [facility] with min A x1. Pt demonstrated increased dyspnea during sit to stand transfer, was able to recover after sitting for ~ 2minutes. Pt performed sit to stand transfer from [facility] with min A
--- NOTE | 2023-02-24 10:38 | PC.NURSE ---
Pt was assisted to the chair prior to med pass at 1000. pt also performed incentive spirometer at this time as well. pt was able to pull initial volume of 1200. subsequent deep breaths were around 1000ml. at 1030 pt informed tech that he wanted to go back to bed. stated that his butt wouldn't let him sit there that long . pt was assisted back to bed by YOUNG John at that time.
--- NOTE | 2023-02-24 15:38 | EXP.ACUTE.PN ---
Subjective *Date: 02/24/23 *Time: 15:45 Interval history: Patient on 4 L nasal cannula this morning on rounds. Still quite weak. Denies nausea or vomiting. Tolerating p.o. intake. Dyspneic with any of exertion. Unable to stay in bedside chair for more than 20 to 30 minutes. Still has significant electrolyte abnormalities. PT and OT to evaluate today. Medical Exam Vital signs and Labs for Last 24 Hours: Vital Signs Temp Pulse Pulse Resp BP Pulse Ox O2 Del Method 02/24/23 15:04 98.1 F 75 18 144/80 H 92 L Nasal Cannula 02/24/23 12:00 70 02/24/23 13:35 77 02/24/23 13:35 81 02/24/23 13:35 94 L Nasal Cannula 02/24/23 12:53 Nasal Cannula 02/24/23 11:07 98.4 F 78 16 157/90 H 96 Nasal Cannula 02/24/23 11:00 Nasal Cannula 02/24/23 09:00 Nasal Cannula 02/24/23 09:50 87 92 L Nasal Cannula 02/24/23 09:48 102 H 02/24/23 09:48 98 H 02/24/23 09:48 93 L Nasal Cannula 02/24/23 08:00 86 02/24/23 07:42 98.8 F 85 18 147/89 H 97 Nasal Cannula 02/24/23 04:00 60 02/24/23 06:13 90 02/24/23 06:13 85 02/24/23 06:13 90 L Nasal Cannula 02/24/23 05:00 Nasal Cannula 02/24/23 04:00 98.0 F 66 20 143/81 H 94 L 02/24/23 03:00 Nasal Cannula 02/24/23 02:15 74 02/24/23 02:01 73 02/24/23 00:00 60 02/24/23 00:00 97.8 F 89 20 101/48 L 87 L Non-Rebreather 02/24/23 01:00 Nasal Cannula 02/23/23 23:00 Nasal Cannula 02/23/23 21:00 Nasal Cannula 02/23/23 20:00 Nasal Cannula 02/23/23 20:00 80 02/23/23 20:00 98.0 F 79 24 159/82 H 87 L 02/23/23 22:02 72 02/23/23 22:01 65 02/23/23 19:00 Nasal Cannula 02/23/23 16:00 80 02/23/23 17:00 Nasal Cannula 02/23/23 18:25 77 02/23/23 18:24 66 02/23/23 18:23 Nasal Cannula O2 Flow Rate FiO2 02/24/23 15:04 3 02/24/23 12:00 02/24/23 13:35 02/24/23 13:35 02/24/23 13:35 3 02/24/23 12:53 3 02/24/23 11:07 5 02/24/23 11:00 3 02/24/23 09:00 3 02/24/23 09:50 3 02/24/23 09:48 02/24/23 09:48 02/24/23 09:48 3 02/24/23 08:00 02/24/23 07:42 5 02/24/23 04:00 02/24/23 06:13 02/24/23 06:13 02/24/23 06:13 3 02/24/23 05:00 3 02/24/23 04:00 02/24/23 03:00 3 02/24/23 02:15 02/24/23 02:01 02/24/23 00:00 02/24/23 00:00 02/24/23 01:00 3 02/23/23 23:00 3 02/23/23 21:00 3 02/23/23 20:00 3 02/23/23 20:00 02/23/23 20:00 02/23/23 22:02 02/23/23 22:01 02/23/23 19:00 3 02/23/23 16:00 02/23/23 17:00 3 02/23/23 18:25 02/23/23 18:24 02/23/23 18:23 3 32 Intake and Output 02/23/23 02/24/23 02/24/23 23:59 07:59 15:59 Intake Total 120 / 510 270 / 440 170 / 440 Output Total 200 / 4275 950 / 1850 900 / 1850 Balance -80 / -3765 -680 / -1410 -730 / -1410 Intake: Intake, Oral Amount 120 / 360 120 / 240 120 / 240 Intake, Other Amount 150 / 150 Intake, Total IV Amount 50 / 50 Magnesium Sulfate in Water 2 gm 50 / 50 In 50 ml @ 50 mls/hr IV ONCE ONE Rx#:[id number] Output: Output, Urine Amount 200 / 4275 950 / 950 0 / 950 Output, Urine Amount (Catheter) 900 / 900 Alejandra 900 / 900 Other: Number of Unmeasured Voids 1 0 0 Weight 64.41 kg Patient Weight 02/24/23 23:59 Weight 64.41 kg Laboratory Results - last 24 hr 02/23/23 17:02: POC Glucose 101 02/23/23 18:07: Sodium 127 L, Potassium 3.4 L, Chloride 87 L, Carbon Dioxide 34 H, Anion Gap 9.4, BUN 13 D, Creatinine 0.50 L D, Estimated Creat Clear 64, Estimated GFR 164, Est GFR ( Amer) 199 D, Glucose 93, Calcium 9.0 02/24/23 06:25: Urine Color Yellow, Urine Appearance Clear, Urine pH 7.0, Ur Specific [place] 1.025, Urine Protein Negative, Urine Glucose (UA) Negative, Urine Ketones Negative, Urine Blood Trace-i, Urine
--- NOTE | 2023-02-24 15:43 | EXP.EVENT.NO ---
Advance care planning note: Active diagnosis: Acute on chronic hypoxemic respiratory failure with hypercapnia. COVID-19. Debility. End-stage COPD. The patient's active diagnoses are of sufficient risk that focused discussion on advanced care planning is indicated in order to allow the patient to thoughtfully consider personal goals of care; and, if situations arise that prevent the ability to personally give input, to ensure appropriate representation of their personal desires through documentation or informed surrogate decision makers. Discussion: Persons present and participating in discussion: Daughter-Flory Stewart and patient. Discussion: Discussion about patient's progressive weakness. He is currently on hospice for COPD. Given progressive weakness, dyspnea because of COVID, urinary retention, progressive decline, he is unsafe to go home. Discussion about goals of care moving forward with placement and continued hospice care. Family would like to proceed with placement at long-term care facility. Discussion with patient after talking with family, he is open to this idea and feels that it is finally time. States he has been resistant to this in the past. Time spent: Total time spent [id number] in education and discussion directly related to advance care planninmin Rafal Palmer MD
--- NOTE | 2023-02-24 16:47 | PC.NURSE ---
Pt has been awake and watching tv this shift. Dr Palmer, pt and pt daughter/POA had discussion about discharge plans this afternoon. lungs have rhonchi and wheezes scattered throughout. bowel sounds are active in all quads. nad noted
--- NOTE | 2023-02-24 21:37 | PC.NURSE ---
PT REFUSED BATH FOR THIS RN AND YOUNG LEDBETTER. PT ASKED TWICE AND DECLINED BOTH TIMES. SRNA WILL BATHE PT IF HE REQUESTS OR IF PT NEEDS CLEANED UP THROUGHOUT THIS RN'S SHIFT.
[2023-02-25] VITALS (16 sets, daily range): BP systolic 143–159; BP diastolic 71–89; PULSE 60–90; RESP 17–22; TEMP 36.6–36.9; O2SAT 90–100; BMI 22.0
[2023-02-25 07:36] LABS: Basophils % 0.1 % (0.1-2.0); Eosinophils % 0.1 % (0.1-12.0); Hematocrit 34.5 % (42.0-52.0); Hemoglobin 11.2 g/dL (14.1-18.0); Lymphocytes # 0.7 K/mm3 (0.7-4.5); Lymphocytes % 13.4 % (10-50); Mean Corpuscular HGB Conc 32.4 g/dL (31.8-35.4); Mean Corpuscular Volume 98.7 fl (80-94); Mean Platelet Volume 7.8 fl (7.4-10.4); Monocytes # 0.5 K/mm3 (0.1-1.0); Monocytes % 10.8 % (1.7-9.3); Neutrophils # 3.8 K/mm3 (1.8-7.8); Neutrophils % 75.5 % (37.0-80.0); Platelet Count 247 K/mm3 (142-424); Red Blood Count 3.49 M/mm3 (4.60-6.20); Red Cell Distribution Width 13.4 % (11.5-17.5)
[2023-02-25 07:41] LABS: Alanine Aminotransferase 44 U/L (12-78); Albumin Level 3.4 g/dl (3.5-5.0); Albumin/Globulin Ratio 1.1 (1.1-1.8); Alkaline Phosphatase 65 U/L (38-126); Anion Gap 10.1 mEq/L (5-15); Aspartate Amino Transferase 52 U/L (17-59); Bilirubin,Total 0.3 mg/dl (0.2-1.3); Blood Urea Nitrogen 8 mg/dl (9-20); Calcium 8.6 mg/dl (8.4-10.2); Carbon Dioxide 31 mmol/L (22.0-30.0); Chloride 88 mmol/L (98-107); Creatinine Clearance Estimated 64 mL/min (50-200); Estimated Glomerular Filt Rate 213 ml/min (>60); GFR (African American) 257 ML/MIN (>60); Globulin 3.1 g/dL (1.3-3.2); Glucose 72 mg/dl (74-100); Potassium 3.1 mmoL/L (3.5-5.1); Sodium 126 mmol/L (136-145); Total Protein,Serum 6.5 g/dl (6.3-8.2)
[2023-02-25 07:42] LABS: Magnesium 1.4 mg/dl (1.6-2.3)
--- NOTE | 2023-02-25 08:09 | SW/DCPLANNER ---
Addendum entered by Rosa Arlington 02/26/23 10:12: Patient will discharge to [facility] today SNF level of care. I will update Radha carbone/ Lilly fajardo w/ patient and his daughter. Addendum entered by Rosa Arlington 02/25/23 14:17: Radha w/ [facility] in [place] stated that she will be able to accept this patient SNF level of care tomorrow. I have also faxed patient information to Lee Ann carbone/ [facility] regarding ICF level of care in the future. I updated Leslie carbone/ [facility] that patient will discharge to [facility] SNF level of care: Hospice services have been revoked. Addendum entered by [facility] 02/25/23 10:32: Patient and his daughter are interested in revoking Hospice Care and discharging to placement based on PT/OT recommendations. Patient expressed an interest in [facility] for SNF level of care and transitioning to LTC. I explained to patient and daughter that placement could be a challenge due to COVID positive. Lee Ann carbone/ [facility] stated they can not accept COVID positive until 10 days after negative COVID test. Patient/daughter are not interested in placement at [facility]. Patient/daughter are agreeable to SNF placement at [facility] and transitioning back to [facility] for LTC once therapy is completed. I am currently waiting to hear back from [facility] in [place]. Radha carbone/ [facility] stated that she is interested: patient information has been faxed. I will continue to update patient and his daughter regarding discharge plans. I explained to daughter that [facility] will accept COVID positive patient's but daughter is not currently interested in this facility at this time due to distance. I will continue to follow up w/ Lilly Knapp, patient and daughter. I have also messaged the following facilities regarding rules for COVID positive and waiting to hear back: [facility], [facility], [facility], [facility], [facility], [facility] and [facility]. Original Note: Patient is currently established w/ [facility] and per Leslie carbone/ [facility] this is a related admission for COPD. I will speak w/ patient and family regarding discharge plans: return home w/ Hospice vs LTC vs SNF level of care. Discharge date is unknown at this time.
--- NOTE | 2023-02-25 09:21 | EXP.PULM.CON ---
History of Present Illness History of present illness: Mr. Cottrell is a 72-year-old male smoker greater than [id number] smoking history, severe COPD, lung nodule previously opted not to pursue any follow-ups presented to the hospital worsening respiratory distress and found to be having COVID-19 pneumonia and pulmonary was consulted for further evaluation and management. [facility] Disclaimer: The information contained in this section may have been updated after the patient was seen, as this information can be updated by other users. Medical History (Updated 02/25/23 @ 10:13 by Mary Pabon MD) Acute and chronic respiratory failure Acute and chronic respiratory failure with hypoxia Atypical chest pain Chronic respiratory failure with hypoxia COPD (chronic obstructive pulmonary disease) COPD mixed type Coronary artery abnormality Dyspnea on exertion Erosive osteoarthritis of multiple sites Hilar lymphadenopathy Hilar lymphadenopathy Hyperlipidemia Hypertension Lung mass Lung nodule Lung nodule Mediastinal lymphadenopathy Mood disorder Normal coronary arteries Pericardial effusion Pre-operative clearance Psoriasis Respiratory failure with hypoxia Type 2 diabetes mellitus Surgical History No history of previous surgery Family History Other Cancer Diabetes Social History (Updated 02/23/23 @ 03:00 by Radha Gallo RN) Smoking Status: Current every day smoker tobacco type: cigarettes packs per day: 3 alcohol intake: never substance use type: denies use current occupational status: retired Travel in the last 8 weeks: None household members: none housing: apartment number of children: 3 caffeine: Yes Review of Systems Constitutional Constitutional: Reports anorexia, Reports body ache(s) and Reports fatigue Eyes Eyes: Denies eye discharge, Denies dry eyes, Denies irritation and Denies itchy eyes ENT Ears, Nose, Mouth, and Throat: Denies epistaxis, Denies facial pain, Denies lip swelling and Denies throat swelling *Cardiovascular Cardiovascular: Reports dyspnea and Reports dyspnea on exertion *Respiratory Respiratory: Reports chest congestion, Reports cough, Reports dyspnea, Reports dyspnea on exertion, Reports excessive phlegm production, Denies hemoptysis, Denies pain on inspiration and Reports wheezing *Gastrointestinal Gastrointestinal: Denies abdominal pain, Denies belching and Denies cramping *Musculoskeletal Musculoskeletal: Reports back pain, Reports myalgias and Reports other (No small joint swelling or Pain) Psychiatric Psychiatric: Denies homicidal ideation and Denies suicidal ideation Endocrine Endocrine: Reports fatigue and Denies heat intolerance Hematologic/Lymphatic Hematologic/Lymphatic: Denies easy bleeding and Denies lymphadenopathy Allergic/Immunologic Allergic/Immunologic: Denies itchy eyes, Denies lip swelling, Denies throat swelling and Reports wheezing Pulmonology Exam Inpatient Vital signs and Labs for Last 24 Hours: Temp Pulse Resp BP Pulse Ox O2 Del Method O2 Flow Rate 98.5 F 90 20 152/83 H 95 Nasal Cannula 3 02/25/23 07:54 02/25/23 07:54 02/25/23 07:54 02/25/23 07:54 02/25/23 07:54 02/25/23 07:54 02/25/23 07:54 FiO2 32 02/24/23 18:47 Laboratory Results - last 24 hr 02/25/23 06:26: WBC 5.0, RBC 3.49 L, Hgb 11.2 L, Hct 34.5 L, MCV 98.7 H, MCH 32.0 H, MCHC 32.4, RDW 13.4, Plt Count 247, MPV 7.8, Neut % (Auto) 75.5, Lymph % (Auto) 13.4, Day % (Auto) 10.8 H, Eos % (Auto) 0.1, Baso % (Auto) 0.1, Neut # (Auto) 3.8, Lymph # (Auto) 0.7, Day # (Auto) 0.5, Eos # (Auto) 0.0, Baso # (Auto) 0.0, Sodium 126 L, Potassium 3.1 L, Chloride 88 L, Carbon Dioxide 31 H, Anion Gap 10.1, BUN 8 L, Creatinine 0.40 L, Estimated Creat Clear 64, Estimated GFR 213, Est GFR ( Amer) 257, Glucose 72 L, Calcium 8.6, Magnesium 1.4 L, Total Bilirubi
--- NOTE | 2023-02-25 09:22 | XR_ITS ---
FINAL REPORT CLINICAL HISTORY: Hypoxia..covid COMPARISON: 02/22/2023 FINDINGS: A single portable view of the chest was obtained. The heart size and pulmonary vascularity are within normal limits. The mediastinum is within normal limits. Mild bilateral pulmonary opacities are stable and may represent bilateral pneumonia. The bony thorax is intact. IMPRESSION: Stable bilateral pulmonary opacities. Reviewed, Interpreted and Dictated by Phani Grimm III, MD Transcribed by Zulay Lagunas Authenticated and [facility]
--- NOTE | 2023-02-25 09:57 | HMH.OTEV ---
OT Inpatient Evaluation Rehab OT IP Evaluation Start: 02/23/23 10:44 Freq: ONCE Status: Active Protocol: Document 02/25/23 09:50 [place] (Rec: 02/25/23 09:57 [id number] Rehab OT IP Assessment Subjective History Pt oriented x 3 on arrival. Pt agreeable to engage in therapy evaluation. Pt is a 72 year old male that presented to [facility] ED via EMS due to increasing shortness of breath. Pt has a PMH significant for COPD mixed type, lung nodule with hilar lymphadenopathy, hypertension, diabetes, chronic hyponatremia, tobacco abuse, heavy smoker in the past and was on hospice care at home. Pt was on 2L O2 via nasal cannula at baseline. Pt was desatting and nothing that he tried at home helped. Pt was admitted for further workup and IP management. Pt lives at home alone in a [facility] with a ramp to enter. Pt has 2 daughters at home that assist him with cooking, cleaning and transportation to doctors appointments. Pt states that hospice care assists him with taking a shower. Pt reports that he uses a cane for ambulation but also has a walker and a wheelchair at home. Subjective I am weak. Pt completed bed mobiltiy and went from supine to eob with cga/min assist. Pt able to sit at eob with sba and fair static sitting balance. Pt did stand from eob with min assist x 1. Mod verbal cues required to improve posture upon standing to increase balance; pt demonstrated an increased lean forward. Pt only able to stand for ~15 seconds with min assist before reque
--- NOTE | 2023-02-25 10:30 | PC.NURSE ---
Rounded on patient. He is up to the chair, denies any questions or concerns at this time. Line flushed and remdesivir started.
--- NOTE | 2023-02-25 15:06 | EXP.ACUTE.PN ---
Subjective *Date: 02/25/23 *Time: 19:20 Interval history: Patient states he is feeling well this morning. Still quite fatigued. Stable on 3 L nasal cannula oxygen. Eating lunch on exam. Denies chest pain or fever. No nausea or vomiting. Medical Exam Vital signs and Labs for Last 24 Hours: Vital Signs Temp Pulse Pulse Resp BP Pulse Ox O2 Del Method 02/25/23 14:48 Nasal Cannula 02/25/23 13:27 86 02/25/23 13:27 88 02/25/23 08:00 Nasal Cannula 02/25/23 13:00 Nasal Cannula 02/25/23 11:32 98.0 F 67 17 159/71 H 96 Nasal Cannula 02/25/23 10:30 74 02/25/23 10:30 74 02/25/23 10:30 100 Nasal Cannula 02/25/23 11:00 Nasal Cannula 02/25/23 09:00 Nasal Cannula 02/25/23 07:54 98.5 F 90 20 152/83 H 95 Nasal Cannula 02/25/23 05:40 78 02/25/23 05:40 77 02/25/23 05:40 90 L Nasal Cannula 02/25/23 05:00 Nasal Cannula 02/25/23 04:00 98.2 F 72 20 143/73 H 93 L Nasal Cannula 02/25/23 03:00 Nasal Cannula 02/25/23 01:00 Nasal Cannula 02/24/23 23:00 Nasal Cannula 02/25/23 02:40 88 02/25/23 02:39 89 02/25/23 00:00 97.9 F 65 18 158/89 H 94 L Nasal Cannula 02/24/23 21:51 78 02/24/23 21:51 77 02/24/23 21:00 Nasal Cannula 02/24/23 20:00 Nasal Cannula 02/24/23 20:00 97.8 F 113 H 18 160/90 H 97 Room Air 02/24/23 18:47 Nasal Cannula 02/24/23 18:46 83 02/24/23 18:46 73 02/24/23 18:35 Nasal Cannula 02/24/23 16:44 Nasal Cannula 02/24/23 16:00 80 O2 Flow Rate FiO2 02/25/23 14:48 3 02/25/23 13:27 02/25/23 13:27 02/25/23 08:00 3 02/25/23 13:00 3 02/25/23 11:32 3 02/25/23 10:30 02/25/23 10:30 02/25/23 10:30 3 02/25/23 11:00 3 02/25/23 09:00 02/25/23 07:54 3 02/25/23 05:40 02/25/23 05:40 02/25/23 05:40 3 02/25/23 05:00 3 02/25/23 04:00 3 02/25/23 03:00 3 02/25/23 01:00 3 02/24/23 23:00 3 02/25/23 02:40 02/25/23 02:39 02/25/23 00:00 3 02/24/23 21:51 02/24/23 21:51 02/24/23 21:00 3 02/24/23 20:00 3 02/24/23 20:00 02/24/23 18:47 3 32 02/24/23 18:46 02/24/23 18:46 02/24/23 18:35 3 02/24/23 16:44 3 02/24/23 16:00 Intake and Output 02/24/23 02/25/23 02/25/23 23:59 07:59 15:59 Intake Total 60 / 500 240 / 710 470 / 710 Output Total 0 / 1850 1600 / 1600 0 / 1600 Balance 60 / -1350 -1360 / -890 470 / -890 Intake: Intake, Oral Amount 60 / 300 240 / 710 470 / 710 Output: Output, Urine Amount 0 / 950 1600 / 1600 0 / 1600 Other: Number of Unmeasured Voids 0 0 Number of Bowel Movements 1 Weight 65.884 kg 65.88 kg Patient Weight 02/25/23 23:59 Weight 65.88 kg Laboratory Results - last 24 hr 02/25/23 06:26: WBC 5.0, RBC 3.49 L, Hgb 11.2 L, Hct 34.5 L, MCV 98.7 H, MCH 32.0 H, MCHC 32.4, RDW 13.4, Plt Count 247, MPV 7.8, Neut % (Auto) 75.5, Lymph % (Auto) 13.4, Josephine % (Auto) 10.8 H, Eos % (Auto) 0.1, Baso % (Auto) 0.1, Neut # (Auto) 3.8, Lymph # (Auto) 0.7, Josephine # (Auto) 0.5, Eos # (Auto) 0.0, Baso # (Auto) 0.0, Sodium 126 L, Potassium 3.1 L, Chloride 88 L, Carbon Dioxide 31 H, Anion Gap 10.1, BUN 8 L, Creatinine 0.40 L, Estimated Creat Clear 64, Estimated GFR 213, Est GFR ( Amer) 257, Glucose 72 L, Calcium 8.6, Magnesium 1.4 L, Total Bilirubin 0.3, AST 52, ALT 44, Alkaline Phosphatase 65, Total Protein 6.5, Albumin 3.4 L, Globulin 3.1, Albumin/Globulin Ratio 1.1 I & O for Labs for Last 24 Hours: Intake & Output 02/22/23 02/23/23 02/24/23 02/25/23 23:59 23:59 23:59 23:59 Intake Total 200 / 200 360 / 510 500 / 500 710 / 710 Output Total 100 / 100 4175 / 4275 1850 / 1850 1600 / 1600 Balance 100 / 100 -3815 / -3765 -1350 / -1350 -890 / -890 Weight 72.575 kg 66.043 kg 64.41 kg 65.88 kg Microbiology Reports for the Last 24 Hours: Microbiology 02/22/23 19:47
--- NOTE | 2023-02-25 18:40 | PC.NURSE ---
PT IS RESTING IN BED. ALERT AND ORIENTED X3. SOMEWHAT DIFFICULT TO COMMUNICATE WITH DUE TO BEING VERY DOUGLAS. O2 SATURATION HAS MAINTAINED 90-94% ON 3 L NC. LUNG SOUNDS HAVE SCATTERED WHEEZES WITH BILATERAL CRACKLES. ABDOMEN SOFT/NON TENDER WITH ACTIVE BOWEL SOUNDS. PT TOLERATED SITTING UP IN THE CHAIR FOR A FEW HOURS THIS SHIFT. WILL CONTINUE TO MONITOR.
[2023-02-26] VITALS (9 sets, daily range): BP systolic 126–156; BP diastolic 73–84; PULSE 59–74; RESP 18–32; TEMP 36.3–36.8; O2SAT 91–96; BMI 22.0
[2023-02-26 07:09] LABS: Alanine Aminotransferase 43 U/L (12-78); Albumin Level 3.3 g/dl (3.5-5.0); Albumin/Globulin Ratio 1.1 (1.1-1.8); Alkaline Phosphatase 67 U/L (38-126); Anion Gap 9.6 mEq/L (5-15); Aspartate Amino Transferase 40 U/L (17-59); Bilirubin,Total 0.2 mg/dl (0.2-1.3); Blood Urea Nitrogen 10 mg/dl (9-20); Calcium 8.9 mg/dl (8.4-10.2); Carbon Dioxide 33 mmol/L (22.0-30.0); Chloride 90 mmol/L (98-107); Creatinine Clearance Estimated 64 mL/min (50-200); Estimated Glomerular Filt Rate 213 ml/min (>60); GFR (African American) 257 ML/MIN (>60); Globulin 2.9 g/dL (1.3-3.2); Glucose 75 mg/dl (74-100); Potassium 3.6 mmoL/L (3.5-5.1); Sodium 129 mmol/L (136-145); Total Protein,Serum 6.2 g/dl (6.3-8.2)
--- NOTE | 2023-02-26 09:33 | EXP.PULM.PN ---
Subjective *Date: 02/26/23 *Time: 10:16 Pulmonology Exam Inpatient Vital signs and Labs for Last 24 Hours: Temp Pulse Resp BP Pulse Ox O2 Del Method O2 Flow Rate 97.3 F L 74 26 H 144/77 H 92 L Nasal Cannula 3 02/26/23 08:00 02/26/23 08:00 02/26/23 08:00 02/26/23 08:00 02/26/23 08:00 02/26/23 08:00 02/26/23 07:00 FiO2 32 02/24/23 18:47 Laboratory Results - last 24 hr 02/26/23 05:58: Sodium 129 L, Potassium 3.6, Chloride 90 L, Carbon Dioxide 33 H, Anion Gap 9.6, BUN 10, Creatinine 0.40 L, Estimated Creat Clear 64, Estimated GFR 213, Est GFR ( Amer) 257, Glucose 75, Calcium 8.9, Total Bilirubin 0.2, AST 40, ALT 43, Alkaline Phosphatase 67, Total Protein 6.2 L, Albumin 3.3 L, Globulin 2.9, Albumin/Globulin Ratio 1.1 I & O for Labs for Last 24 Hours: Intake & Output 02/23/23 02/24/23 02/25/23 02/26/23 23:59 23:59 23:59 23:59 Intake Total 360 / 510 500 / 500 1180 / 1180 240 / 240 Output Total 4175 / 4275 1850 / 1850 2600 / 2600 750 / 750 Balance -3815 / -3765 -1350 / -1350 -1420 / -1420 -510 / -510 Weight 145 lb 9.6 oz 142 lb 145 lb 3.848 oz 145 lb 3.2 oz Microbiology Reports for the Last 24 Hours: Microbiology 02/22/23 19:47 Blood Blood Culture - Preliminary NO GROWTH AFTER 48 HOURS 02/22/23 18:05 Blood Blood Culture - Preliminary NO GROWTH AFTER 48 HOURS Constitutional: Present severe distress Head: Present normocephalic and atraumatic ENT: Present normal exam, normal oropharynx and mucous membranes moist Neck: Present normal inspection and full ROM Respiratory: Present prolonged expiratory phase, respiratory distress and wheezes; Absent able to speak in complete sentences Cardiac: Present S1/S2, Tachycardia and radial pulses present GI: Present soft and distention; Absent tenderness or guarding Skin: Present intact; Absent cyanosis or jaundice Neuro: Present alert, awake and oriented x 3 Extremities: Present normal inspection; Absent edema, clubbing or cyanosis Psychiatric: Present normal affect and cooperative Assessment and Plan *Assessment and plan (1) Pneumonia due to COVID-19 virus: Status: Acute Category: Medical Code(s): U07.1 - COVID-19; J12.82 - Pneumonia due to coronavirus disease 2019 (2) Acute and chronic respiratory failure with hypoxia: Status: Acute Category: Medical Code(s): J96.21 - Acute and chronic respiratory failure with hypoxia Plan Mr. Cottrell is a 72-year-old male smoker greater than [id number] smoking history, severe COPD, lung nodule previously opted not to pursue any follow-ups presented to the hospital worsening respiratory distress and found to be having COVID-19 pneumonia and pulmonary was consulted for further evaluation and management. Patient was initially Intermittent along with remdesivir and dexamethasone. Chest x-ray on admission no acute pulmonary infiltrates. ABG upon admission no evidence of hypoxic or hypercarbic respiratory failure, however performed on 40% BiPAP Oxygen saturation relatively stable at 3 L NC admission. Afebrile. No evidence of leukocytosis. Bilateral diffuse wheezing on auscultation. Chest x-ray from yesterday worsening vascular congestion. Interval Update: No acute respiratory vents overnight. Stable oxygen requirement, improving saturations. Continues to have bilateral diffuse wheezing. Patient admits improving respiratory status. Plan: Initiate Trelegy 100 inhaler. Continue DuoNebs every 6 hours on as-needed basis Continue Levoflaxacin x 5 days -Continue nasal cannula maintain O2 saturation goal of 90% above, wean as tolerated. -Continue remdesivir x 5 days OR untill Discharge -Continue dexamethasone x5 days OR untill Discharge -Recommend chemical prophylactic anticoagulation and GI ulcer prophylaxis.. #The left upper lobe nodule previous seen on his CT scan again noted on his chest x-ray from this admission. Patient cont
--- NOTE | 2023-02-26 10:54 | EXP.DC.SUM ---
General Admission date:: 02/23/23 Discharge date: 02/26/23 HPI HPI HPI: This is a 72-year-old male with extensive past medical history including but not limited to COPD mixed type, lung nodule with hilar lymphadenopathy, hypertension, diabetes, chronic hyponatremia, tobacco abuse, heavy smoker in the past was on hospice care. Patient was brought to the ER by EMS to the concerning of increased shortness of breath. Patient is currently on home oxygen 2 L. He was desatting. Patient denies any fever, nauseaand vomiting. Nothing that he tried at home made him feel better. Patient decided to come to the ER. Admitted for further work-up. Hospital Course Hospital Course Hospital Course: 72-year-old male with extensive past medical history including but not limited to COPD mixed type, lung nodule with hilar lymphadenopathy, hypertension, diabetes, chronic hyponatremia, tobacco abuse, heavy smoker in the past was on hospice care. Patient was brought to the ER by EMS to the concerning of increased shortness of breath. Patient wears 2 L oxygen at home. Currently requiring 3 L. Has improved clinically during admission. Stable for [facility] to [facility] for [facility]. Has had urinary retention during admission necessitating long-term indwelling Alejandra. Will refer to urology after discharge. Problems addressed as follows: -COVID-19 pneumonia -Acute on chronic hypercapnic respiratory failure: Patient positive for COVID on arrival. Had increased oxygen requirement from baseline. Has been able to wean to 3 L nasal cannula during admission. Remained stable for the past 48 hours. Treated with remdesivir and Decadron. We will discontinue these on discharge. Continue DuoNebs every 6 hours. Pulmonology consulted and assisted with care during admission. Patient had component of pulmonary edema, was given diuresis with good response. Electrolytes slowly improving with repletion due to hypokalemia secondary to diuresis. PT and OT evaluated, recommend placement for dyspnea, further weakness, falls, debility. Goals of care discussion with family and patient, would benefit and appreciate placement for further care. Graciously excepted by [facility] in [place]. Patient has been on levofloxacin. Will complete 5 days total. Needs a dose the evening of 02/26 and last dose the evening of 02/27 to complete course. -Lung nodule with mediastinal lymphoadenopathy: Patient does not desire to pursue any aggressive treatment despite concerning of malignancy. Continue hospice care upon discharge -Chronic hyponatremia: -Hypokalemia -Hypomagnesemia Hyponatremia has remained stable in the upper 120s. This is his baseline. Potassium has improved with repletion to 3.6 on day of discharge. Magnesium improved with repletion as well. Recommend repeat CMP and magnesium in 1 week to monitor electrolytes and kidney function. - Urinary retention Continue finasteride 5 mg daily and Terazosin nightly. Alejandra placed during admission. Will discharge with Alejandra. Patient referred to urology as outpatient for further evaluation and management. Continue Risperdal 0.5 mg twice daily for tremor, primidone 100 mg 3 times a day for tremor Continue pregabalin 50 mg 3 times a day for pain Continue paroxetine 40 mill's daily mood Continue lisinopril 20 mg daily for blood pressure and metoprolol 12.5 mg twice daily. Patient stable for discharge to nursing facility for continued care. Exam Data for Last 24 hours Vital signs and Labs for Last 24 Hours: Temp Pulse Resp BP Pulse Ox O2 Del Method O2 Flow Rate 97.3 F L 74 26 H 144/77 H 92 L Nasal Cannula 3 02/26/23 08:00 02/26/23 08:00 02/26/23 08:00 02/26/23 08:00 02/26/23 08:00 02/26/23 10:39 02/26/23 10:39 FiO2 32 02/24/23 18:47 Laboratory Results - last 24 hr 02/26/23 05:58: Sodium 129 L, Potassium 3.6, Chloride 90 L, Carbon Dioxide 33 H, Anion Gap 9.6, BUN 10, Creatinine 0.40 L, Estima
--- NOTE | 2023-02-26 12:55 | PC.NURSE ---
Medication wasn't on the floor 2 hours after being due. says if he doesn't get today it's okay because he will not be leaving on Remdesivir iv.
--- NOTE | 2023-02-26 15:22 | PC.NURSE ---
report called to yumi mullins rn
--- NOTE | 2023-02-26 16:16 | PC.NURSE ---
Pt. to d/c with f/c.
== END 2023-02-26 16:35 | DRG 177 ==
LOC: ER 22:48 → 2ND 02-23 01:08
PROVIDERS: Nurse Practitioner Family; Admitting Provider Internal Medicine Adolescent Medicine; Emergency Provider Emergency Medicine; PCP Physician Assistant; Visit Provider Internal Medicine Adolescent Medicine
DX: U07.1 COVID-19 (principal); J12.82 Pneumonia due to coronavirus disease 2019; J96.22 Acute and chronic respiratory failure with hypercapnia; J96.11 Chronic respiratory failure with hypoxia; E87.1 Hypo-osmolality and hyponatremia; I10 Essential (primary) hypertension; E11.9 Type 2 diabetes mellitus without complications; J44.9 Chronic obstructive pulmonary disease, unspecified; F17.210 Nicotine dependence, cigarettes, uncomplicated; R91.1 Solitary pulmonary nodule; F39 Unspecified mood [affective] disorder; M54.9 Dorsalgia, unspecified; R33.9 Retention of urine, unspecified
CPT/HCPCS: 36415; 71045; 80048; 80053; 81001; 82803; 82962; 83605; 83735; 83880; 84100; 84484; 85025; 87040; 87581; 87632; 87798; 93005; 94640; 94660; 94761; 97110; 97162; 97167; 97530; 99285; G0238; J1956; J3475

== ENCOUNTER → 2023-04-05 06:23 | Outpatient (CLI) | payer MEDICARE, MEDICAID, SELFPAY ==
[2023-04-05 06:41] LABS: Microscopic, Urine URINE MICROSCOPIC (MICROSCOPIC)
[2023-04-05 06:47] LABS: Basophils % 0.2 % (0.1-2.0); Eosinophils # 0.1 K/mm3 (0.0-0.4); Eosinophils % 0.5 % (0.1-12.0); Hematocrit 32.6 % (42.0-52.0); Hemoglobin 10.8 g/dL (14.1-18.0); Lymphocytes # 1.1 K/mm3 (0.7-4.5); Lymphocytes % 7.9 % (10-50); Mean Corpuscular Hemoglobin 32.8 pg (27.0-31.2); Mean Corpuscular Volume 99.4 fl (80-94); Mean Platelet Volume 7.5 fl (7.4-10.4); Monocytes # 0.8 K/mm3 (0.1-1.0); Monocytes % 5.9 % (1.7-9.3); Neutrophils # 11.7 K/mm3 (1.8-7.8); Neutrophils % 85.4 % (37.0-80.0); Platelet Count 476 K/mm3 (142-424); Red Blood Count 3.28 M/mm3 (4.60-6.20); White Blood Count 13.7 K/mm3 (4.8-10.8)
[2023-04-05 06:51] LABS: MANUAL DIFFERENTIAL MANUAL DIFFERENTIAL (MANUAL DIFF)
[2023-04-05 07:03] LABS: Appearance,Urine CLEAR (Clear); Bilirubin,Urine Negative (Negative); Blood, Urine TRACE-I (Negative); Color,Urine YELLOW (Yellow); Glucose,Urine (UA) Negative (Negative); Ketones,Urine Negative (Negative); Leukocyte Esterase,Urine Negative (Negative); Nitrate,Urine Negative (Negative); Protein,Urine Negative (Negative)
[2023-04-05 07:28] LABS: Bacteria,Urine Trace /lpf; Mucus,Urine Trace /lpf
[2023-04-05 07:31] LABS: Chloride 86 mmol/L (98-107); Sodium 122 mmol/L (136-145)
[2023-04-05 07:33] LABS: Alanine Aminotransferase 28 U/L (12-78); Aspartate Amino Transferase 53 U/L (17-59); Blood Urea Nitrogen 36 mg/dl (9-20); Estimated Glomerular Filt Rate 66 ml/min (>60); GFR (African American) 80 ML/MIN (>60)
[2023-04-05 07:34] LABS: Albumin Level 3.5 g/dl (3.5-5.0); Albumin/Globulin Ratio 1.1 (1.1-1.8); Alkaline Phosphatase 92 U/L (38-126); Bilirubin,Total 0.5 mg/dl (0.2-1.3); Calcium 8.8 mg/dl (8.4-10.2); Carbon Dioxide 26 mmol/L (22.0-30.0); Globulin 3.2 g/dL (1.3-3.2); Glucose 137 mg/dl (74-100); Total Protein,Serum 6.7 g/dl (6.3-8.2)
[2023-04-05 08:27] LABS: Lymphocytes % 8 % (10-50); Monocytes % 8 % (2-9); Neutrophils % 84 % (42-76); RBC Morphology Normal; Total Cells Counted 100
[2023-04-05 08:30] LABS: Platelet Estimate Slight Increase
== END ==
PROVIDERS: PCP Emergency Medicine; Visit Provider Emergency Medicine
DX: R41.82 Altered mental status, unspecified (principal); N39.0 Urinary tract infection, site not specified
CPT/HCPCS: 80053; 81001; 85007; 85025

== ENCOUNTER → 2023-04-05 06:30 | Outpatient (CLI) | payer OTHER, MEDICARE, MEDICAID, SELFPAY | PROVIDERS: PCP Emergency Medicine; Visit Provider Emergency Medicine | DX: R41.82 Altered mental status, unspecified (principal); N39.0 Urinary tract infection, site not specified ==

== ENCOUNTER → 2023-04-19 15:13 | Outpatient (CLI) | payer OTHER, MEDICARE, MEDICAID, SELFPAY ==
[2023-04-19 15:35] LABS: Basophils % 0.3 % (0.1-2.0); Eosinophils # 0.2 K/mm3 (0.0-0.4); Eosinophils % 2.2 % (0.1-12.0); Hematocrit 26.7 % (42.0-52.0); Hemoglobin 9.1 g/dL (14.1-18.0); Lymphocytes # 1.5 K/mm3 (0.7-4.5); Lymphocytes % 18.4 % (10-50); Mean Corpuscular HGB Conc 34.2 g/dL (31.8-35.4); Mean Corpuscular Hemoglobin 33.3 pg (27.0-31.2); Mean Corpuscular Volume 97.3 fl (80-94); Mean Platelet Volume 7.2 fl (7.4-10.4); Monocytes # 0.5 K/mm3 (0.1-1.0); Monocytes % 5.9 % (1.7-9.3); Neutrophils # 5.9 K/mm3 (1.8-7.8); Neutrophils % 73.3 % (37.0-80.0); Platelet Count 651 K/mm3 (142-424); Red Blood Count 2.75 M/mm3 (4.60-6.20); Red Cell Distribution Width 13.8 % (11.5-17.5); White Blood Count 8.1 K/mm3 (4.8-10.8)
== END ==
LOC: LAB.DROPOF 15:15
PROVIDERS: PCP Emergency Medicine; Visit Provider Emergency Medicine
DX: E11.9 Type 2 diabetes mellitus without complications (principal); E78.5 Hyperlipidemia, unspecified; E87.1 Hypo-osmolality and hyponatremia; Z79.84 Long term (current) use of oral hypoglycemic drugs; D64.9 Anemia, unspecified
CPT/HCPCS: 85025

== ENCOUNTER → 2023-05-28 13:44 | Outpatient (CLI) | payer MEDICARE, MEDICAID, SELFPAY ==
--- NOTE | 2023-05-28 13:48 | CT_ITS ---
FINAL REPORT TECHNIQUE: Axial images were obtained through the chest without contrast. CLINICAL HISTORY: LT UPPER LUNG DENSITY COMPARISON: Prior CT of the chest from 07/24/2022 FINDINGS: CT CHEST WITHOUT CONTRAST: CT examination of the chest reveals a large mass in the AP window, measuring 7.6 x 6.3 cm in size. This is markedly enlarged compared to the prior CT of July 2022, and extends into the suprahilar regions. There is another anterior mediastinal mass, measuring 1.4 cm in diameter, also significantly larger than noted on the prior exam. There are changes of centrilobular emphysema. There is a cavitary mass in the left upper lobe measuring 3.9 x 2.5 cm in size with surrounding cicatricial reaction. This is also significantly larger than the prior exam. There is a more superior mass in the anterior left upper lobe, measuring 2.8 x 1.8 cm in size, best seen on image #66. A moderate-sized hiatal hernia is present. Bilateral adrenal hyperplasia is noted as well. IMPRESSION: Multiple enlarged masses in the AP window and the anterior mediastinum, metastatic adenopathy from lung cancer. Cavitary mass left upper lobe as described with surrounding cicatricial reaction, and a more superior anterior left upper lobe mass. These are markedly larger than seen on the prior CT examination, and are worrisome for lung carcinoma. Reviewed, Interpreted and Dictated by Norm Beebe MD Transcribed by Sasha Self Authenticated and . [facility]
== END ==
LOC: RAD 13:44
PROVIDERS: PCP Internal Medicine; Visit Provider Emergency Medicine
DX: R91.8 Other nonspecific abnormal finding of lung field (principal); J84.89 Other specified interstitial pulmonary diseases
CPT/HCPCS: 71250

== ENCOUNTER 2023-07-19 20:52 | Emergency (ER) | payer OTHER, MEDICARE, MEDICAID, SELFPAY ==
[2023-07-19] VITALS (8 sets, daily range): BP systolic 127–142; BP diastolic 70–84; PULSE 70–86; RESP 17–27; TEMP 36.6; O2SAT 95–99; BMI 24.3
--- NOTE | 2023-07-19 20:51 | ECG_ITS ---
APPROVED REPORT Exam: Resting ECG HR:77 bpm ECG Measurements Heart Rate 77 AXES KS 174 P 61 QRSd 101 QRS 104 QT 361 T 76 QTc 392 Conclusion SINUS RHYTHM RIGHT AXIS DEVIATION [QRS AXIS > 100] INCOMPLETE RIGHT BUNDLE BRANCH BLOCK [90+ ms QRS DURATION, TERMINAL R IN V1/V2, 40+ ms S IN I/aVL/V4/V5/V6] ABNORMAL ECG UNCONFIRMED REPORT Electronically signed by : Edi Lopez MD 07/20/2023 21:17:33
--- NOTE | 2023-07-19 20:58 | XR_ITS ---
PROCEDURE INFORMATION: Exam: XR Chest Exam date and time: 07/19/2023 9:04 PM Age: 72 years old Clinical indication: Dyspnea; Additional info: SOA, copd TECHNIQUE: Imaging protocol: Radiologic exam of the chest. Views: 1 view. Total images: 2 COMPARISON: CT CHEST WO CON 05/28/2023 1:55 PM FINDINGS: Tubes, catheters and devices: EKG leads are present. Lungs: Similar appearing nodule in cavitary left upper lobe/left apical mass. Right lung is relatively clear. Lungs are emphysematous. Mild nonspecific coarsening of the interstitial markings of both lung bases similar likely reflects chronic fibrosis. Pleural spaces: Blunting bilateral costophrenic angles from trace effusions or pleural thickening. No pneumothorax. Heart/Mediastinum: Large left hilar/mediastinal mass, worsened from prior examination. Mass extends into the AP window and causes rightward deviation of the trachea above the demond. Hiatal hernia. Normal heart size. Vasculature: Prominent central hilar vasculature. Bones/joints: Remote fracture deformity right clavicle. Diffuse osseous demineralization. IMPRESSION: 1. Large left hilar/mediastinal mass, worsened from prior examination. 2. Similar nodular and cavitary left upper lobe/left apical mass. 3. Chronic bibasilar fibrotic changes. 4. Trace bilateral pleural effusions versus pleural thickening.
--- NOTE | 2023-07-19 21:01 | ED_ITS ---
Discharge Plan Disposition Patient Disposition: Home, Self-Care Prescriptions Prescriptions: New cefdinir 300 mg capsule 300 mg PO BID 5 Days Qty: 10 0RF prednisone 20 mg tablet 20 mg PO DAILY 5 Days Qty: 5 0RF No Action benzonatate 200 mg capsule 200 mg PO BID PRN (Reason: cough) Qty: 60 1RF acetylcysteine 600 mg capsule 600 mg PO BID PRN (Reason: cough) Qty: 60 0RF ipratropium-albuterol 0.5 mg-3 mg(2.5 mg base)/3 mL solution for nebulization 3 ml inhalation Q8H 90 Days Qty: 540 3RF budesonide [Pulmicort] 0.5 mg/2 mL suspension for nebulization 0.5 mg inhalation BID 90 Days Qty: 360 2RF tramadol 50 mg tablet 50 mg PO BID Qty: 60 2RF Patient Comments: TAKE ONE TABLET BY MOUTH TWICE DAILY FOR PAIN MAY CAUSE DROWSINESS lorazepam 0.5 mg tablet 0.5 mg PO TID Qty: 90 5RF pregabalin 50 mg capsule 50 mg PO TID Qty: 90 2RF Patient Comments: TAKE ONE CAPSULE BY MOUTH THREE TIMES DAILY FOR PAIN MAY CAUSE DROWSINESS acetaminophen [Acetaminophen Extra Strength] 500 mg tablet 500 mg PO Q6H PRN albuterol sulfate 90 mcg/actuation HFA aerosol inhaler 2 puff inhalation Q6H PRN dextromethorphan-guaifenesin [Robafen DM Cough-Chest Congest] 10-100 mg/5 mL syrup 10 ml PO Q4H PRN ondansetron HCl 4 mg tablet 4 mg PO Q6H PRN amlodipine 2.5 mg tablet 2.5 mg PO DAILY Enbrel SureClick 50 mg/mL (1 mL) pen injector 50 mg SQ WEEKLY finasteride 5 mg tablet 5 mg PO DAILY metoprolol tartrate 25 mg tablet 25 mg PO BID oxybutynin chloride 5 mg tablet extended release 24hr 5 mg PO DAILY terazosin 2 mg capsule 2 mg PO DAILY Patient Comments: TAKE ONE CAPSULE BY MOUTH EVERY DAY trazodone 50 mg tablet 25 mg PO HS lactulose 10 gram/15 mL solution 20 g PO DAILY PRN primidone 50 mg tablet 50 mg PO Q8H 30 Days Qty: 90 0RF Rx Instructions: TAKE TWO TABLETS BY MOUTH THREE TIMES DAILY oxycodone 5 mg tablet 5 mg PO BID PRN (Reason: pain) Qty: 60 0RF multivitamin Tablet 1 tab PO DAILY docusate sodium 100 mg capsule 100 mg PO BID Patient Comments: TAKE ONE CAPSULE BY MOUTH TWICE DAILY aspirin 81 mg tablet,delayed release (DR/EC) 81 mg PO DAILY risperidone 0.5 mg tablet 0.5 mg PO BID Rx Instructions: TAKE ONE TABLET BY MOUTH TWICE DAILY lisinopril 20 mg tablet 20 mg PO DAILY Patient Comments: TAKE ONE TABLET BY MOUTH EVERY DAY paroxetine HCl 40 mg tablet 40 mg PO DAILY Patient Comments: TAKE ONE TABLET BY MOUTH EVERY DAY FOR depression Referrals Follow up/Referrals: Edilberto Feliz DO [Primary Care Provider] - See instructions Activity Restrictions/Add. Instructions Additional Instructions/Restrictions: Call your family doctor to establish care for this visit to the emergency department and schedule follow-up within 48 hours to ensure improvement. If you have any worsening of your condition or any other concerning signs or symptoms, return to the emergency department or your primary care doctor for further evaluation. 20 mg prednisone daily, cefdinir twice daily for 5 days. Clinical Impressions Clinical Impression: Acute exacerbation of chronic obstructive pulmonary disease, Acute hypoxemic respiratory failure Discharge ED Provider: Inderjit Murray HPI General Chief Complaint: Shortness of Breath/Dyspnea Stated Complaint: SOA Time Seen by Provider: 07/19/23 20:52 History of Present Illness HPI narrative: 72-year-old history of hypertension, hyperlipidemia, COPD, lung cancer, type 2 diabetes currently on hospice and DNR/DNI presenting with shortness of breath. Patient has been feeling short of breath more so throughout the day. Nonpr oductive cough. No fevers or chills, nausea or vomiting, chest pain, or any other concerns. EMS was called. Gave patient [address] because he was hypoxemic. On arrival, 4 L nasal cannula (this is his baseline) saturating 92%. Related Data Home Medications Medication Instructions Recorded Confirmed lisinopril 20 mg tablet 20 mg PO DAILY High blood pressure 10/28/22 07/01/23 paroxetine HCl 40 mg tablet 40 mg PO DAILY Depression 10/28/22 07/01/23 aspirin 81 mg tablet,delayed 81 mg PO DAILY Heart Disease 02/23/23 07/01/23 release docusate sodium 100 mg capsule 100 mg PO BID Constipation 02/23/23 07/01/23 multivitamin 1 tab PO DAILY Supplement 02/23/23 07/01/23 risperidone 0.5 mg tablet 0.5 mg PO BID tremors 02/23/23 07/01/23 acetaminophen 500 mg tablet 500 mg PO Q6H PRN 05/22/23 07/01/23 (Acetaminophen Extra Strength) albuterol sulfate 90 mcg/actuation 2 puff inhalation Q6H PRN 05/22/23 07/01/23 aerosol inhaler amlodipine 2.5 mg tablet 2.5 mg PO DAILY 05/22/23 07/01/23 dextromethorphan-guaifenesin 10 10 ml PO Q4H PRN 05/22/23 07/01/23 mg-100 mg/5 mL oral syrup (Robafen DM Cough-Chest Congestion) etanercept 50 mg/mL (1 mL) 50 mg SQ WEEKLY 05/22/23 07/01/23 subcutaneous pen injector (Enbrel SureClick) finasteride 5 mg tablet 5 mg PO DAILY BPH 05/22/23 07/01/23 lactulose 10 gram/15 mL oral 20 g PO DAILY PRN 05/22/23 07/01/23 solution metoprolol tartrate 25 mg tablet 25 mg PO BID htn 05/22/23 07/01/23 ondansetron HCl 4 mg tablet 4 mg PO Q6H PRN 05/22/23 07/01/23 oxybutynin chloride 5 mg 5 mg PO DAILY 05/22/23 07/01/23 tablet,extended release 24 hr terazosin 2 mg capsule 2 mg PO DAILY High blood pressure 05/22/23 07/01/23 trazodone 50 mg tablet 25 mg PO HS 05/22/23 07/01/23 Previous Rx's Medication Instructions Recorded budesonide 0.5 mg/2 mL suspension 0.5 mg (2 mL) inhalation BID 90 04/02/23 for nebulization (Pulmicort) days #360 mL ipratropium 0.5 mg-albuterol 3 mg 3 ml inhalation Q8H 3 months #540 04/02/23 (2.5 mg base)/3 mL nebulization mL soln tramadol 50 mg tablet 50 mg PO BID Pain #60 tabs 04/15/23 lorazepam 0.5 mg tablet 0.5 mg PO TID Anxiety #90 tabs 04/24/23 pregabalin 50 mg capsule 50 mg PO TID Pain #90 caps 05/03/23 primidone 50 mg tablet 50 mg PO Q8H tremors 30 days #90 05/22/23 tabs acetylcysteine 600 mg capsule 600 mg PO BID PRN cough #60 caps 06/13/23 benzonatate 200 mg capsule 200 mg PO BID PRN cough #60 caps 06/13/23 oxycodone 5 mg tablet 5 mg PO BID PRN pain #60 tabs 06/27/23 cefdinir 300 mg capsule 300 mg PO BID 5 days #10 caps 07/19/23 prednisone 20 mg tablet 20 mg PO DAILY 5 days #5 tabs 07/19/23 Allergies Allergy/AdvReac Type Severity Reaction Status Date / Time Penicillins Allergy Unknown Verified 07/01/23 21:01 allergy reaction tetanus and diphtheria Allergy Unknown Verified 07/01/23 21:01 toxoids allergy reaction [facility] Disclaimer: The information contained in this section may have been updated after the patient was seen, as this information can be updated by other users. Medical History Acute and chronic respiratory failure Acute and chronic respiratory failure with hypoxia Atypical chest pain Chronic respiratory failure with hypoxia COPD (chronic obstructive pulmonary disease) COPD mixed type Coronary artery abnormality Anatomical kink D1. Dyspnea on exertion Erosive osteoarthritis of multiple sites Hilar lymphadenopathy Hilar lymphadenopathy Hyperlipidemia Hypertension Lung mass Lung nodule Lung nodule Mediastinal lymphadenopathy Mood disorder Normal coronary arteries APR 2020 Pericardial effusion Pre-operative clearance Psoriasis Respiratory failure with hypoxia Type 2 diabetes mellitus Surgical History No history of previous surgery Family History Other Cancer Diabetes Social History (Updated 06/13/23 @ 14:50 by Sadia Potts) Smoking Status: Former smoker smoking status stop date: 04/17/23 alcohol intake: never substance use type: denies use current occupational status: retired Travel in the last 8 weeks: None household members: none housing: apartment number of children: 3 caffeine: Yes ROS Obtained: Yes All systems reviewed & no additional complaints except as documented Physical Exam General General appearance: alert, in distress (Respiratory distress) and other (Chronically ill) Neck Neck exam: Present trachea midline Chest Chest inspection: Present normal inspection and symmetric chest wall rise Respiratory Respiratory exam: Present respiratory distress, accessory muscle use, prolonged expiratory phase and other (Decreased breath sounds diffusely. No focal breath sounds); Absent wheezes or stridor Cardiovascular Cardiovascular exam: Present regular rate and normal rhythm Extremities Exam Extremities exam: Absent edema Neurological Exam Neurological exam: Present alert, oriented X3 and CN II-XII intact Skin Skin exam: Present warm and dry; Absent cyanosis, diaphoresis or pallor HEART Score HEART Score HEART Score assessment performed?: Yes History (anamnesis): Slightly suspicious ECG: Normal Age: >65 years Risk factors: 3 or more risk factors Troponin: </= normal limit HEART Score: 4 Critical Care Critical Care Time Critical Care Time: Yes (resp) Attestation: On 07/19/23, the high probability of a clinically significant, sudden or life threatening deterioration of the following system(s) required my full and direct attention, intervention and personal management. The time I documented below is in addition to time spent performing reported procedures but includes the following listed in this critical care notation. Total Time Total Critical Care Time: 60 Medical Decision Making Medical Records Medical records reviewed: Yes I reviewed the patient's medical records. Sergio Inquiry Pt receiving controlled substance: No Sergio was queried for this patient: No Vital Signs Vital Signs: 07/19/23 20:52 07/19/23 21:00 07/19/23 21:00 Temperature 97.9 F Temperature Source Oral Pulse Rate 75 Pulse Rate [Right] 86 Respiratory Rate 17 Blood Pressure [Right Arm] 134/84 Blood Pressure Mean [Right Arm] 100 Blood Pressure Source [Right Arm] Automatic Cuff Blood Pressure Position [Right Arm] Sitting 02 Sat by Pulse Oximetry 95 99 Oxygen Delivery Method Nasal Cannula BiPAP Oxygen Flow Rate (LPM) 4 07/19/23 21:18 Temperature Temperature Source Pulse Rate 74 Pulse Rate [Right] Respiratory Rate Blood Pressure [Right Arm] Blood Pressure Mean [Right Arm] Blood Pressure Source [Right Arm] Blood Pressure Position [Right Arm] 02 Sat by Pulse Oximetry Oxygen Delivery Method Oxygen Flow Rate (LPM) Lab Data Labs: Lab Results 07/19/23 20:40: WBC 8.8, RBC 3.51 L, Hgb 10.8 L, Hct 32.7 L, MCV 93.2, MCH 30.6, MCHC 32.9, RDW 14.8, Plt Count 329, MPV 7.8, Neut % (Auto) 77.8, Lymph % (Auto) 13.4, [place] % (Auto) 6.1, Eos % (Auto) 2.0, Baso % (Auto) 0.7, Neut # (Auto) 6.9, Lymph # (Auto) 1.2, [place] # (Auto) 0.5, Eos # (Auto) 0.2, Baso # (Auto) 0.1, Sodium 126 L, Potassium 4.5, Chloride 86 L, Carbon Dioxide 35 H, Anion Gap 9.5, BUN 14, Creatinine 0.40 L, Estimated Creat Clear 73, Estimated GFR 213, Est GFR ( Amer) 257, Glucose 181 H, Calcium 8.8, Total Bilirubin 0.3, AST 33, ALT 26, Alkaline Phosphatase 68, Troponin I < 0.01, NT-Pro-B Natriuret Pep 303 H, Total Protein 7.5, Albumin 3.6, Globulin 3.9 H, Albumin/Globulin Ratio 0.9 L 07/19/23 21:03: VBG pH 7.38, VBG pCO2 59.6 H, VBG pO2 58.0 H, VBG HCO3 34.3 H, VBG Total CO2 36.1 H, VBG O2 Saturation 88.7 H, VBG Base Excess 9.2 H 07/19/23 20:40 07/19/23 20:40 Response Orders (Tests/Meds): ED MEDICATIONS Generic Name Dose Route Start Last Admin Trade Name Freq PRN Reason Stop Dose Admin Cefdinir 300 mg 07/19/23 22:53 Cefdinir 300mg Capsule PO 07/19/23 22:54 ONCE ONE Discontinued Medications Generic Name Dose Route Start Last Admin Trade Name Freq PRN Reason Stop Dose Admin Albuterol/Ipratropium 9 ml 07/19/23 21:05 07/19/23 21:19 Ipratropium/Albuterol 3 Ml Neb IH 07/19/23 21:06 9 ml ONCE ONE Administration Methylprednisolone Sodium Succinate 125 mg 07/19/23 20:58 07/19/23 21:07 Methylprednisolone Sod Succ 125mg Vial IV 07/19/23 20:59 125 mg ONCE ONE Administration ORDERS Category Date Time Status POCUS Point of Care (ER Only) Stat Exams 07/19/23 20:46 Completed XR chest portable Stat Exams 07/19/23 20:58 Completed Brain Natriuretic Peptide Stat Lab 07/19/23 20:40 Completed Complete Blood Count Auto Diff Stat Lab 07/19/23 20:40 Completed Comprehensive Metabolic Panel Stat Lab 07/19/23 20:40 Completed Lactic Acid Stat Lab 07/19/23 20:58 Ordered Troponin I Q3H Lab 07/19/23 23:58 Ordered Troponin I Q3H Lab 07/20/23 02:58 Ordered Troponin I Stat Lab 07/19/23 20:40 Completed VBG [Venous Blood Gas] Stat RT 07/19/23 21:54 Ordered Venous Blood Gas Routine RT 07/19/23 21:03 Completed ECG initial Besson Routine Y 07/19/23 20:51 Completed MDM Narrative Medical Decision Narrative: 72-year-old history of hypertension, hyperlipidemia, COPD, lung cancer, type 2 diabetes currently on hospice and DNR/DNI presenting with shortness of breath. Patient has been feeling short of breath more so throughout the day. No nproductive cough. No fevers or chills, nausea or vomiting, chest pain, or any other concerns. EMS was called. Gave patient [address] because he was hypoxemic. On arrival, 4 L nasal cannula (this is his baseline) saturating 92%. History was obtained via conversation with patient, EMS. On arrival, patient hemodynamically stable, alert, oriented x4, appropriate, GCS 15, moving all extremities spontaneously, pupils equal and reactive to light. Full physical exam performed and significant for chronically ill-appearing male in acute respiratory distress. Prolonged expiratory phase, accessory muscle usage, and patient with diminished breath sounds bilaterally diffusely. No david dence of rales. No lower extremity edema. Patient without any other complaints at this time. 4 L nasal cannula in place and saturating 92 to 94%. Differential includes PE, pneumothorax, pneumonia, COPD exacerbation, ACS, GA, among others. Patient was given 3 DuoNebs, Solu-Medrol, BiPAP for symptomatic management and correction of underlying abnormalities. Workup independently interpreted and significant for CBC or chemistry. Troponin negative, BNP nonactionable. Chest x-ray chronically bad, no acute cardiopulmonary disease and x-ray. See radiology read for full review of final results. Independent interpretation of EKG shows 77 beats a minute normal sinus rhythm. No ST or T wave changes concerning for acute anemia. No evidence of acute heart strain. NE, QRS, QT intervals within normal limits. Heart score 4. On reevaluation, patient feeling much better. BiPAP was removed. Patient moving air much better and not struggling to breathe. Given concern for COPD exacerbation secondary to underlying lung disease, patient was given cefdinir p.o. Given patient presentation, workup, history, this most likely represents COPD exacerbation. Because patient at baseline without signs or symptoms of clinical decompensation, deemed appropriate for discharge. Results were relayed to patient who voiced understanding and were agreeable to outpatient management and follow up. At the time of discharge the patient was hemodynamically stable, tolerating PO, and mobilizing appropriately.
[2023-07-19 21:04] LABS: VBG Base Excess 9.2 mmol/L (-2.4-2.3); VBG HCO3 34.3 mmol/L (23-30); VBG Oxygen Saturation 88.7 % (50-70); VBG PCO2 59.6 mmol/L (35-51); VBG PH 7.38 mmol/L (7.31-7.41); VBG Total CO2 36.1 mmol/L (23-27)
[2023-07-19] MEDS: METHYLPREDNISOLONE SOD SUCC 125MG VIAL 125 MG IV (21:07)
[2023-07-19 21:19] LABS: Basophils # 0.1 K/mm3 (0-0.2); Basophils % 0.7 % (0.1-2.0); Eosinophils # 0.2 K/mm3 (0.0-0.4); Hematocrit 32.7 % (42.0-52.0); Hemoglobin 10.8 g/dL (14.1-18.0); Lymphocytes # 1.2 K/mm3 (0.7-4.5); Lymphocytes % 13.4 % (10-50); Mean Corpuscular HGB Conc 32.9 g/dL (31.8-35.4); Mean Corpuscular Hemoglobin 30.6 pg (27.0-31.2); Mean Corpuscular Volume 93.2 fl (80-94); Mean Platelet Volume 7.8 fl (7.4-10.4); Monocytes # 0.5 K/mm3 (0.1-1.0); Monocytes % 6.1 % (1.7-9.3); Neutrophils # 6.9 K/mm3 (1.8-7.8); Neutrophils % 77.8 % (37.0-80.0); Platelet Count 329 K/mm3 (142-424); Red Blood Count 3.51 M/mm3 (4.60-6.20); Red Cell Distribution Width 14.8 % (11.5-17.5); White Blood Count 8.8 K/mm3 (4.8-10.8)
[2023-07-19] MEDS: IPRATROPIUM/ALBUTEROL 3 ML NEB 9 ML IH (21:19)
[2023-07-19 21:22] LABS: Alanine Aminotransferase 26 U/L (12-78); Albumin Level 3.6 g/dl (3.5-5.0); Albumin/Globulin Ratio 0.9 (1.1-1.8); Alkaline Phosphatase 68 U/L (38-126); Anion Gap 9.5 mEq/L (5-15); Aspartate Amino Transferase 33 U/L (17-59); Bilirubin,Total 0.3 mg/dl (0.2-1.3); Blood Urea Nitrogen 14 mg/dl (9-20); Calcium 8.8 mg/dl (8.4-10.2); Carbon Dioxide 35 mmol/L (22.0-30.0); Chloride 86 mmol/L (98-107); Creatinine Clearance Estimated 73 mL/min (50-200); Estimated Glomerular Filt Rate 213 ml/min (>60); GFR (African American) 257 ML/MIN (>60); Globulin 3.9 g/dL (1.3-3.2); Glucose 181 mg/dl (74-100); Potassium 4.5 mmoL/L (3.5-5.1); Sodium 126 mmol/L (136-145); Total Protein,Serum 7.5 g/dl (6.3-8.2)
[2023-07-19 21:35] LABS: NT Pro Brain Natriuretic Pep. 303 pg/mL (0-125)
[2023-07-19 21:36] LABS: Troponin I < 0.01 ng/ml (0.00-0.034)
--- NOTE | 2023-07-19 21:53 | PC.NURSE ---
pt reports feeling some better, requests to remove bipap, md aware, may remove bipap
[2023-07-19] MEDS: CEFDINIR 300MG CAPSULE 300 MG PO (23:12)
== END 2023-07-19 23:17 | disposition home or self-care (01) ==
PROVIDERS: Emergency Provider Emergency Medicine; PCP Internal Medicine
DX: J44.1 Chronic obstructive pulmonary disease with (acute) exacerbation (principal); J96.01 Acute respiratory failure with hypoxia; R05.9 Cough, unspecified; C34.90 Malignant neoplasm of unspecified part of unspecified bronchus or lung; I10 Essential (primary) hypertension; E78.5 Hyperlipidemia, unspecified; E11.9 Type 2 diabetes mellitus without complications; L40.9 Psoriasis, unspecified; Z87.891 Personal history of nicotine dependence
CPT/HCPCS: 71045; 80053; 82803; 83880; 84484; 85025; 93005; 96374; 99291

== ENCOUNTER 2023-08-09 19:30 | Outpatient (CLI) | payer MEDICARE, MEDICAID, SELFPAY ==
[2023-08-09 19:49] LABS: Basophils % 0.2 % (0.1-2.0); Eosinophils % 0.4 % (0.1-12.0); Hematocrit 38.1 % (42.0-52.0); Hemoglobin 11.4 g/dL (14.1-18.0); Lymphocytes # 1.3 K/mm3 (0.7-4.5); Lymphocytes % 15.5 % (10-50); Mean Corpuscular HGB Conc 29.8 g/dL (31.8-35.4); Mean Corpuscular Hemoglobin 30.3 pg (27.0-31.2); Mean Corpuscular Volume 101.7 fl (80-94); Mean Platelet Volume 7.8 fl (7.4-10.4); Monocytes # 0.4 K/mm3 (0.1-1.0); Neutrophils # 6.5 K/mm3 (1.8-7.8); Platelet Count 327 K/mm3 (142-424); Red Blood Count 3.75 M/mm3 (4.60-6.20); Red Cell Distribution Width 14.9 % (11.5-17.5); White Blood Count 8.2 K/mm3 (4.8-10.8)
[2023-08-09 20:00] LABS: Alanine Aminotransferase 38 U/L (12-78); Albumin Level 3.4 g/dl (3.5-5.0); Albumin/Globulin Ratio 0.9 (1.1-1.8); Alkaline Phosphatase 139 U/L (38-126); Anion Gap 9.3 mEq/L (5-15); Aspartate Amino Transferase 34 U/L (17-59); Bilirubin,Total 0.3 mg/dl (0.2-1.3); Blood Urea Nitrogen 31 mg/dl (9-20); Carbon Dioxide 37 mmol/L (22.0-30.0); Chloride 105 mmol/L (98-107); Estimated Glomerular Filt Rate 133 ml/min (>60); GFR (African American) 161 ML/MIN (>60); Globulin 3.6 g/dL (1.3-3.2); Glucose 256 mg/dl (74-100); Potassium 3.3 mmoL/L (3.5-5.1); Sodium 148 mmol/L (136-145)
== END 2023-08-09 23:59 ==
PROVIDERS: PCP Internal Medicine; Visit Provider Internal Medicine
DX: I10 Essential (primary) hypertension (principal)
CPT/HCPCS: 80053; 85025

== ENCOUNTER 2023-08-10 11:45 | Outpatient (CLI) | payer MEDICARE, MEDICAID, SELFPAY ==
[2023-08-10 14:18] LABS: Coronavirus 19, PCR Not Detected (NotDetected); Influenza A, PCR Not Detected (NotDetected); Influenza B, PCR Not Detected (NotDetected)
== END 2023-08-10 23:59 ==
PROVIDERS: PCP Internal Medicine; Visit Provider Internal Medicine
DX: R06.09 Other forms of dyspnea (principal); J44.1 Chronic obstructive pulmonary disease with (acute) exacerbation
CPT/HCPCS: 87636